=== PATIENT | male | born 1950 | race Caucasian/White ===

== ENCOUNTER 2021-04-26 16:07 | Inpatient (IN) | payer MEDICARE, OTHER, SELFPAY ==
[2021-04-26] VITALS (11 sets, daily range): BP systolic 106–141; BP diastolic 65–107; PULSE 81–110; RESP 12–26; TEMP 36.3–37; O2SAT 92–100; BMI 17.3; BMI 17.4
--- NOTE | 2021-04-26 16:23 | EKG12_ITS ---
Test Reason : SOB Blood Pressure : / mmHG Vent. Rate : 091 BPM Atrial Rate : 091 BPM P-R Int : 124 ms QRS Dur : 082 ms QT Int : 348 ms P-R-T Axes : 081 080 074 degrees QTc Int : 428 ms Normal sinus rhythm Normal ECG Confirmed by ESTELITA RENTERIA, DAYA ([id number]), supervising editor news reel RUBEN BENZ ([id number]) on 04/28/2021 10:01:32 AM Referred By: OXANA Confirmed By:DAYA CAPONE MD
--- NOTE | 2021-04-26 16:25 | EDS_ITS ---
HPI History of Present Illness Chief Complaint: Shortness of Breath Narrative Narrative: 71-year-old male past medical history of COPD presents with increasing shortness of breath and dyspnea on exertion that he has had for the last 3 to 4 days. 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 He had a fever as high as 102 this morning with increasing shortness of breath. He has been immunized against Covid. He quit smoking a year and a half ago, and was last hospitalized for breathing difficulty 2 years ago. He denies any leg swelling. No other symptoms. He usually wears oxygen at home, 5 to 6 L at all times. While he states he recently had a chest x-ray, he states he is here merely for antibiotics. [facility] Medical History (Updated 04/26/21 @ 21:39 by Jamin Stanton MD) AAA (abdominal aortic aneurysm) Basal cell carcinoma (BCC) Chronic bronchitis with COPD (chronic obstructive pulmonary disease) Chronic hypoxemic respiratory failure Chronic lower back pain Diverticulitis Hyperlipidemia Hypertension Inguinal hernia Lumbago Home Medications Oxygen, Home [Home Oxygen] 2 - 3 lpm NASAL PRN PRN 05/03/14 [History Last Taken 05/03/14] albuterol sulfate [ProAir HFA] 1 - 2 puff INHALATION Q4H PRN PRN 05/03/14 [History Last Taken 05/03/14] atorvastatin 20 mg PO QHS 05/03/14 [History Last Taken 04/05/16] diclofenac sodium 75 mg PO BID 05/03/14 [History Last Taken 04/05/16] gabapentin 600 mg PO 4X/DAY 05/03/14 [History Last Taken 04/05/16] ipratropium-albuterol [Combivent Respimat] 1 puff INHALATION Q6H 05/03/14 [Hi story Last Taken 04/05/16] oxycodone-acetaminophen 1 tab PO BID PRN PRN 05/03/14 [History Last Taken 04/05/16] tramadol 50 mg PO Q6H PRN PRN 05/03/14 [History Last Taken Unknown] zolpidem 5 mg PO QHS PRN PRN 05/03/14 [History Last Taken 04/05/16] umeclidinium-vilanterol [Anoro Ellipta] 1 puff INHALATION DAILY 04/06/16 [History Last Taken 04/05/16] levofloxacin 750 mg PO DAILY #5 tablet 04/10/16 [Rx Last Taken Unknown] prednisone 10 mg PO UD #32 tab 04/10/16 [Rx Last Taken Unknown] azithromycin [Zithromax Z-Mushtaq] See Rx Instructions PO .COMPLEX #6 tab 04/26/21 [Rx Last Taken Unknown] prednisone 40 mg PO DAILY #14 tab 04/26/21 [Rx Last Taken Unknown] Allergy/AdvReac Type Severity Reaction Status Date / Time venom-honey bee Allergy Vomiting Verified 04/26/21 16:13 [bee venom (honey bee)] Family History (Updated 04/26/21 @ 21:[address] Jayme Macario MD) Other Heart disease Surgical History History of spinal fusion S/P herniorrhaphy Social History Smoking Status: Former smoker ROS ROS ED ROS Narrative Constitutional: Positive fever, no chills. HEENT: No sore throat. No neck pain. No loss of vision. No rhinorrhea. Cardiovascular: No chest pain. No palpitations. No pedal edema. Respiratory: Occasional cough, increasing shortness of breath. Abdominal: No abdominal pain. No nausea. No vomiting. Genitourinary: No dysuria. No hematuria. Musculoskeletal: No myalgias. No arthralgias. Neurologic: No headaches. No dizziness. No lightheadedness. Skin: No rash. No change in color. Psychiatric: No depression. No anxiety. EXAM Physical Exam Narrative Exam Narrative: Afebrile. Vital signs noted. HEENT: Normocephalic. Atraumatic. PERRL, EOMI. Neck soft and supple. No point tenderness or step off. Cardiovascular: Regular rate and rhythm. No murmurs, rubs, or gallops appreciated. Respiratory: Minimal tachypnea. Decreased breath sounds bilateral bases. Occasional rhonchi with expiratory wheezing. Gastrointestinal: Abdomen soft, nontender, with normoactive bowel sounds. No rebound or guarding. Neurological: Awake. Alert. Nonfocal, nonlateralizing. Skin: No rash. Normal color. No pallor. Musculoskeletal: No pedal edema. Full range of motion extremities. Const Vital Signs: 04/26/21 16:13 04/26/21 16:16 04/26/21 16:47 Temperature 97.9 F 97.9 F Temperature Source Temporal Temporal Pulse Rate 110 H 110 H 98 Respiratory Rate 19 H 19 H 19 H Respiratory Effort Short of Breath Labored Short of Breath Respiratory Depth Shallow Respiratory Pattern Tachypnea Blood Pressure 141/78 H 141/78 H Blood Pressure Mean 99 99 Pulse Ox 95 95 92 Oxygen Delivery Method Nasal Cannula Nasal Cannula Nasal Cannula Oxygen Flow Rate (L/min) 6 6 6 04/26/21 17:11 04/26/21 18:04 04/26/21 19:00 Temperature 98.1 F Temperature Source Temporal Pulse Rate 110 H 81 92 Respiratory Rate 22 H 20 H 12 Respiratory Effort Respiratory Depth Respiratory Pattern Blood Pressure 106/65 128/70 H 131/86 H Blood Pressure Mean 78 89 101 Pulse Ox 95 97 Oxygen Delivery Method Nasal Cannula Nasal Cannula Oxygen Flow Rate (L/min) 6 6 04/26/21 21:26 Temperature 98.6 F Temperature Source Temporal Pulse Rate 104 H Respiratory Rate 25 H Respiratory Effort Respiratory Depth Respiratory Pattern Blood Pressure 118/105 H Blood Pressure Mean 109 Pulse Ox 96 Oxygen Delivery Method Nasal Cannula Oxygen Flow Rate (L/min) 6 MDM MDM MDM Narrative Medical decision making narrative: Comprehensive work-up was pursued. He was given on ipratropium/albuterol nebulizer treatment and Solu-Medrol 125 mg intravenously. He has normal white count of 6.2, hemoglobin stable at 12.3. Troponin negative at 12. Basic metabolic panel is grossly unremarkable. Chest x-ray shows COPD but no acute cardio pulmonary process. At this point in time, I feel he be discharged safely home. His Covid and influenza swabs are negative. He is afebrile currently. I will write him a prescription for an azithromycin Z-Mushtaq given his increased dyspnea, and for steroid burst for the next 7 days. He will follow up with his sulfuric acid plant operator. Return instructions were reviewed. Disposition is discharged home in stable condition. However, there was told by the RN that when the patient was exerting himself prior to discharge, he became hypoxic on his 5 to 7 L that he wears at home. He was in the 80s of his pulse ox. He states that he had never desaturated that low on his home oxygen, and was hesitant to go home. I then discussed the patient with Dr. Macario for admission. Lab Data Attestation: I reviewed the patient's lab results. Labs: Laboratory Results - last 24 hr 04/26/21 04/26/21 16:32 16:32 WBC 6.2 RBC 4.41 L Hgb 12.3 L Hct 39.3 L MCV 89.1 MCH 27.9 MCHC 31.3 L RDW Std Deviation 44.2 H RDW Coeff of Mac 13.5 Plt Count 179 MPV 9.9 Immature Gran % (Auto) 0.200 Neut % (Auto) 80.0 H Lymph % (Auto) 13.1 L Cotton % (Auto) 5.4 Eos % (Auto) 0.8 Baso % (Auto) 0.5 Absolute Neuts (auto) 4.9 Absolute Lymphs (auto) 0.81 L Nucleated RBC % 0 Sodium 138 Potassium 4.0 Chloride 103 Carbon Dioxide 32.0 Anion Gap 3 L BUN 25 H Creatinine 0.78 Estim Creat Clear Calc 53.17 Est GFR (MDRD) Af Amer 125 Est GFR (MDRD) Non-Af 103 BUN/Creatinine Ratio 31.8 H Glucose 104 Calcium 9.0 Troponin I High Sens 12 Radiography Diagnostic Testing: Clinical Impression(s) from Imaging Studies Chest X-Ray 04/26/21 17:10 IMPRESSION: COPD. No acute cardiopulmonary pathology. Electronically Signed: Jose Barajas MD at 18:21 EST , Service support , Discharge Plan Dx/Rx/DC Orders Clinical Impression: COPD exacerbation, Hypoxia Disposition Disposition: Acute Care Hospital [facility] Discharge Date/Time: 04/26/21 20:19
[2021-04-26] MEDS: Ipratropium/Albuterol Sulfate 3 ML AMPUL.NEB INHALATION ×2 (16:45→23:56)
[2021-04-26 16:46] LABS: Absolute Lymphocyte Count 0.81 X10^3/uL (0.83-4.51); Absolute Neutrophil Count 4.9 X10^3/uL (2.0-7.7); Basophil# 0.03 X10^3/uL; Basophil% 0.5 % (0-1); Eosinophil# 0.05 X10^3/uL; Eosinophils% 0.8 % (0-5); Hematocrit 39.3 % (40-54); Hemoglobin 12.3 g/dL (13.0-16.5); Lymphocyte # 0.81 X10^3/ul (0.83-4.51); Lymphocyte % 13.1 % (19-41); Mean Corp Hgb Conc 31.3 g/dL (32-36); Mean Corpuscular Hgb 27.9 pg (27.0-32.0); Mean Corpuscular Volume 89.1 fL (80-94); Mean Platelet Vol. 9.9 fl (6.2-12.0); Monocyte# 0.33 X10^3/uL; Monocyte% 5.4 % (0-10); NRBC Flagged by Analyzer 0 % (0-5); Neutrophil # 4.93 X10^3/uL (2.7-7.7); Platelet Count 179 K/mm3 (150-450); RBC Distribution Width CV 13.5 % (11.6-14.6); RBC Distribution Width SD 44.2 fl (35.1-43.9); Red Blood Count 4.41 M/mm3 (4.6-6.2); White Blood Count 6.2 K/mm3 (4.4-11.0)
[2021-04-26 17:10] LABS: Anion Gap 3 (5-15); BUN 25 mg/dL (7-18); BUN/Creat Ratio 31.8 RATIO (10-20); Chloride 103 mmol/L (98-107); Creatinine, Serum 0.78 mg/dL (0.70-1.30); EST Glomerular Filtration Rate 103 mL/min (>60); Est Glom Filt Rate - Afr Amer 125 mL/min (>60); Estimated Creatinine Clearance 53.17 ml/min; Glucose 104 mg/dL (74-106); Sodium Level 138 mmol/L (136-145); Troponin-I HS 12 pg/mL (3.0-78.0)
--- NOTE | 2021-04-26 17:10 | RAD_ITS ---
STUDY: X-RAY CHEST REASON FOR EXAM: Male, 71 years old. Shortness of breath TECHNIQUE: AP portable COMPARISON: None. FINDINGS: Lungs are hyperinflated and there is prominence of the interstitial markings. Tiny calcified granuloma in right upper lobe.. There is blunting of costophrenic angles bilaterally likely representing pleural thickening. Tiny effusions not excluded. There is calcific pleural plaquing of the right base Normal size heart. Normal mediastinum and betty. Normal visualized pulmonary arteries. Mildly calcified aortic arch and descending thoracic aorta. Dorsal spine demonstrates degenerative change. Normal visualized ribs, clavicles, and right clavicle. Postsurgical changes of the left There is no demonstrated abnormality of the visualized soft tissue structures of the upper abdomen. RAD/Chest 1 View (Portable) IMPRESSION: COPD. No acute cardiopulmonary pathology. Electronically Signed: Jose Barajas MD at 18:21 EST , Service support ,
[2021-04-26] MEDS: MethylPREDNISolone 125 MG/2 ML Vial IV (17:30)
--- NOTE | 2021-04-26 20:37 | ED.RN ---
pt was assisted to restroom while on O2 condenser. O2 decreased to 86% while on [address] was informed and patient placed back onto the board. sandhya grady rn [id number]
--- NOTE | 2021-04-26 21:15 | PCM.HP.STD ---
HPI - General General Date of Admission: 04/26/21 HPI Narrative DAVID HERNANDEZ, is a 71 M with a significant history of COPD on home oxygen who presents to the emergency department with a 3-day history of progressive worsening shortness of breath. Patient reported that at home he is on for 5 to 7 L nasal cannula oxygen. Associated for symptom is increased wheezing more than his baseline. Further he has a lynne thick sputum which is worse than his baseline. He reports a home temperature of over 102 Fahrenheit on the day of presentation. Reportedly he went to the urgent care because he was too hypoxic he was sent to the emergency department. Reportedly attempt was made to discharge the patient home. However patient reportedly desaturating into the low 80s and reported that he has never had low oxygen saturation like that before. [facility] Medical History (Updated 04/26/21 @ 23:22 by Jimmie Del Rio) AAA (abdominal aortic aneurysm) Anxiety Basal cell carcinoma (BCC) Chronic bronchitis with COPD (chronic obstructive pulmonary disease) Chronic hypoxemic respiratory failure Chronic lower back pain Depression Diverticulitis Former smoker Hyperlipidemia Hypertension Inguinal hernia Lumbago On home oxygen therapy Sleep apnea Home Medications albuterol sulfate [ProAir HFA] 1 - 2 puff INHALATION Q4H PRN PRN 05/03/14 [History Last Taken 05/03/14] atorvastatin 20 mg PO QHS 05/03/14 [History Last Taken 04/05/16] oxycodone-acetaminophen 1 tab PO BID PRN PRN 05/03/14 [History Last Taken 04/05/16] zolpidem 5 mg PO QHS PRN PRN 05/03/14 [History Last Taken 04/05/16] aspirin 81 mg PO DAILY 04/26/21 [History Last Taken Unknown] budesonide 0.5 mg INHALATION Q12H 04/26/21 [History Last Taken Unknown] citalopram 10 mg PO DAILY 04/26/21 [History Last Taken Unknown] diclofenac sodium [Voltaren] 2 g TOPICAL 4X/DAY 04/26/21 [History Last Taken Unknown] duloxetine 40 mg PO DAILY 04/26/21 [History Last Taken Unknown] fluconazole 100 mg PO DAILY 04/26/21 [History Last Taken Unknown] gabapentin 1,200 mg PO BID 04/26/21 [History Last Taken Unknown] guaifenesin 1,200 mg PO BID 04/26/21 [History Last Taken Unknown] ipratropium bromide [Atrovent] 2 spray INTRANASAL TID 04/26/21 [History Last Taken Unknown] ipratropium-albuterol [Combivent Respimat] 1 puff INHALATION 4X/DAY 04/26/21 [History Last Taken Unknown] prednisone 10 mg PO DAILY 04/26/21 [History Last Taken Unknown] tamsulosin 0.4 mg PO QHS 04/26/21 [History Last Taken Unknown] zolpidem 5 - 10 mg PO QHS 04/26/21 [History Last Taken Unknown] Allergy/AdvReac Type Severity Reaction Status Date / Time venom-honey bee Allergy Vomiting Verified 04/26/21 16:13 [bee venom (honey bee)] Family History Other Heart disease Surgical History History of spinal fusion S/P herniorrhaphy Social History Smoking Status: Former smoker ROS ROS Narrative Constitutional: Reports fever. Denies anorexia and change in weight Eyes: Denies blurry vision, change in eye color, change in vision, discharge from eye(s), double vision, erythema, eye pain, loss of vision or other HEENT: Denies abnormal hearing, dysphagia, ear pain, epistaxis, headache(s), hearing loss, nasal congestion, nasal discharge, post nasal drip, sinus pressure, sore throat or other Cardiovascular: Denies chest pain or palpitations. Respiratory/Chest: Reports shortness of breath, wheezes, productive cough. Gastrointestinal: Reports nausea and vomiting. Denies abdominal pain, coffee ground emesis, constipation, diarrhea, dyspepsia, hematemesis, hematochezia, loose stools, melena or other Genitourinary: Denies burning urination, difficulty urinating, dysuria, hematuria, nocturia, urinary frequency, urinary hesitancy, urinary incontinence, urinary urgency or other Musculoskeletal: Denies arthralgias, back pain, joint pain, joint stiffness, joint swelling, myalgias, neck pain or other Neurologic: Denies abnormal gait, abnormal speech, confusion, disequilibrium, dizziness, focal weakness, headache(s), numbness, paresthesias, seizure-like activity, seizures, syncope, tingling, tremor(s) or other Psychiatric: Denies anxiety, depression, homicidal ideation, suicidal ideation or other Endocrinology: Denies change in body appearance, cold intolerance, excessive sweating, heat intolerance, polydipsia, polyuria or other Hematologic/Lymphatic: Denies anemia, easy bleeding, easy bruising, lymphadenopathy or other Integumentary: Denies rashes Allergic/Immunologic: Denies rhinitis, hives, eczema, asthma or other Vital Signs Vital Signs Vital Signs: 04/26/21 16:13 04/26/21 16:16 04/26/21 16:47 Temperature 97.9 F 97.9 F Temperature Source Temporal Temporal Pulse Rate 110 H 110 H 98 Respiratory Rate 19 H 19 H 19 H Respiratory Effort Short of Breath Labored Short of Breath Respiratory Depth Shallow Respiratory Pattern Tachypnea Blood Pressure 141/78 H 141/78 H Blood Pressure Mean 99 99 Pulse Ox 95 95 92 Oxygen Delivery Method Nasal Cannula Nasal Cannula Nasal Cannula Oxygen Flow Rate (L/min) 6 6 6 04/26/21 17:11 04/26/21 18:04 04/26/21 19:00 Temperature 98.1 F Temperature Source Temporal Pulse Rate 110 H 81 92 Respiratory Rate 22 H 20 H 12 Respiratory Effort Respiratory Depth Respiratory Pattern Blood Pressure 106/65 128/70 H 131/86 H Blood Pressure Mean 78 89 101 Pulse Ox 95 97 Oxygen Delivery Method Nasal Cannula Nasal Cannula Oxygen Flow Rate (L/min) 6 6 Weight Weight: 56.3 kg Body Mass Index (BMI) 17.3 Physical Exam Narrative Physical exam: General: Patient sitting in a wheel chair; and with oxygen in nares. Head: Normocephalic, atraumatic, no tenderness Eyes: PERRLA, EOMI ENT, no trauma, moist mucous membranes, no rhinorrhea Neck: Nontender, full range of motion, no spinal tenderness, deformities, step-off CVS: Regular rate and rhythm. S1-S2 present. No murmur, gallop or rub. Respiratory : Use accessory muscles of respiration; tachypnea. Wheezes and rhonchi. Chest wall nontender. Abdomen: Soft, nontender, nondistended, normal bowel sounds, no masses : Deferred Back: Nontender, no CVA tenderness, no midline spinal tenderness, deformities, step-offs Extremities: Cachectic. Nontender full range of motion, no trauma Skin: Normal color, no trauma, abrasions Neuro: Alert, oriented, cranial nerves II through XII grossly intact; except patient is hard of hearing. Psychiatry: Anxious. Not depressed. Results Lab / Micro Data Result Diagrams: 04/26/21 16:32 04/26/21 16:32 Labs: Laboratory Results - last 24 hr 04/26/21 16:32: WBC 6.2, RBC 4.41 L, Hgb 12.3 L, Hct 39.3 L, MCV 89.1, MCH 27.9, MCHC 31.3 L, RDW Std Deviation 44.2 H, RDW Coeff of Mac 13.5, Plt Count 179, MPV 9.9, Immature Gran % (Auto) 0.200, Neut % (Auto) 80.0 H, Lymph % (Auto) 13.1 L, Mcdonough % (Auto) 5.4, Eos % (Auto) 0.8, Baso % (Auto) 0.5, Absolute Neuts (auto) 4.9, Absolute Lymphs (auto) 0.81 L, Nucleated RBC % 0 04/26/21 16:32: Sodium 138, Potassium 4.0, Chloride 103, Carbon Dioxide 32.0, Anion Gap 3 L, BUN 25 H, Creatinine 0.78, Estim Creat Clear Calc 53.17, Est GFR (MDRD) Af Amer 125, Est GFR (MDRD) Non-Af 103, BUN/Creatinine Ratio 31.8 H, Glucose 104, Calcium 9.0, Troponin I High Sens 12 Micro: Microbiology 04/26/21 16:32 Nasal Secretion SARS-CoV-2 Antigen (Rapid) - Final 04/26/21 16:24 Mucosa - Nose Influenza Types A,B Direct FA (JALYN) - Final Radiology Impression Chest X-Ray 04/26/21 17:10 IMPRESSION: COPD. No acute cardiopulmonary pathology. Electronically Signed: Jose Barajas MD at 18:21 EST , Service support , Assessment & Plan Assessment/Plan (1) COPD (chronic obstructive pulmonary disease): QUALIFIERS: COPD type: COPD with acute exacerbation Qualified Code(s): J44.1 - Chronic obstructive pulmonary disease with (acute) exacerbation PLAN: Acute exacerbation of COPD CXR independently showed hyperinflation with no acute cardiopulmonary process. I agree with radiologist interpretation. Scheduled DuoNeb ordered Albuterol as needed Hold home prednisone. Solu-Medrol received at the emergent department and continued. Because of reported fever; increased wheezes; and increased weakness in sputum we will start patient on antibiotics. Levaquin ordered. Continue supplemental oxygen. Titrate to maintain oxygen saturation to at least 90%. CBC reviewed showed normal white counts but with neutrophilia of 80% and with lymphopenia of 13.1%. BMP was unremarkable. Monitor BMP and CBC Protein calorie malnutrition Cachexia. BMI of 17.4. Nutrition consult. Ensure compact ordered. Depression/anxiety Citalopram and duloxetine continue DVT Prophylaxis: Subcutaneous Lovenox ordered Charges/Coding Visit Charges Inpatient E&M: 98958 Init Hosp L3
[2021-04-27] VITALS (14 sets, daily range): BP systolic 136–158; BP diastolic 82–102; PULSE 79–95; RESP 18–24; TEMP 36.6–36.9; O2SAT 94–98
[2021-04-27] MEDS: 0.9% Saline Lock 10 ML Syringe IV ×3 (00:12→13:56)
[2021-04-27] MEDS: levoFLOXacin 500 MG Tablet PO ×2 (00:12→05:36)
[2021-04-27] MEDS: Acetaminophen 325 MG Tablet 650 MG PO ×4 (00:23→23:32)
[2021-04-27] MEDS: oxyCODONE 5 MG Tablet PO ×2 (00:23→07:55)
--- NOTE | 2021-04-27 01:30 | PCS.PANDOC ---
PANDEMIC DOCUMENTATION INITIATED: Date:04/27 Time 2100
[2021-04-27] MEDS: Albuterol 2.5 MG/3 ML VIAL.NEB. INHALATION (02:41)
[2021-04-27] MEDS: Ipratropium Bromide 0.06% NASAL SPRAY 2 SPRAY NASAL ×3 (05:36→20:00)
[2021-04-27] MEDS: Ipratropium/Albuterol Sulfate 3 ML AMPUL.NEB INHALATION ×5 (06:50→23:09)
[2021-04-27] MEDS: Citalopram 10 MG Tablet PO (07:54)
[2021-04-27] MEDS: Aspirin E.C. 81 MG Tablet PO (07:54)
[2021-04-27] MEDS: Gabapentin 600 MG Tablet 1200 MG PO ×2 (07:54→20:01)
[2021-04-27] MEDS: DULoxetine Hcl 20 MG Capsule 40 MG PO (07:55)
[2021-04-27] MEDS: Enoxaparin 40 MG/0.4 ML Syringe SC (07:56)
--- NOTE | 2021-04-27 08:20 | PN.HOSP_ITS ---
Subjective Subjective Patient is a 72-year-old gentleman admitted with progressive shortness of breath and assessment of COPD with acute exacerbation made admitted to regular nursing floor for further management Objective Data Objective Data Vital Signs: Vital Signs Temp Pulse Resp BP Pulse Ox 97.9 F 81 24 H 141/102 H 94 04/27/21 07:45 04/27/21 07:45 04/27/21 07:45 04/27/21 07:45 04/27/21 07:45 Oxygen Flow Rate (L/min) 5 Oxygen Delivery Method Nasal Cannula Weight: 56.3 kg Body Mass Index (BMI) 17.4 Intake & Output: Intake and Output for Last 24 Hours 04/25/21 04/26/21 04/27/21 23:59 23:59 23:59 Intake Total 400 / 400 Balance 400 / 400 Lab / Micro Data Result Diagrams: 04/27/21 07:35 04/27/21 07:35 Labs: Laboratory Results - last 24 hr 04/26/21 16:32: WBC 6.2, RBC 4.41 L, Hgb 12.3 L, Hct 39.3 L, MCV 89.1, MCH 27.9, MCHC 31.3 L, RDW Std Deviation 44.2 H, RDW Coeff of Mac 13.5, Plt Count 179, MPV 9.9, Immature Gran % (Auto) 0.200, Neut % (Auto) 80.0 H, Lymph % (Auto) 13.1 L, Schuyler % (Auto) 5.4, Eos % (Auto) 0.8, Baso % (Auto) 0.5, Absolute Neuts (auto) 4.9, Absolute Lymphs (auto) 0.81 L, Nucleated RBC % 0 04/26/21 16:32: Sodium 138, Potassium 4.0, Chloride 103, Carbon Dioxide 32.0, Anion Gap 3 L, BUN 25 H, Creatinine 0.78, Estim Creat Clear Calc 53.17, Est GFR (MDRD) Af Amer 125, Est GFR (MDRD) Non-Af 103, BUN/Creatinine Ratio 31.8 H, Glucose 104, Calcium 9.0, Troponin I High Sens 12 Micro: Microbiology 04/26/21 16:32 Nasal Secretion SARS-CoV-2 Antigen (Rapid) - Final 04/26/21 16:24 Mucosa - Nose Influenza Types A,B Direct FA (JALYN) - Final Radiography Diagnostic Testing: Radiology Impression Chest X-Ray 04/26/21 17:10 IMPRESSION: COPD. No acute cardiopulmonary pathology. Electronically Signed: Jose Barajas MD at 18:21 EST , Service support , Physical Exam Narrative GENERAL: cooperative HEENT: Atraumatic; EYES; Anicteric, Normal Conjunctiva NECK; supple, normal thyroid, RESPIRATORY: Diminished to auscultation with bilateral wheezes CARDIOVASCULAR: Regular S1 S2, GI: soft, normoactive bowel sounds, : No Renal angle tenderness; EXTREMITIES: No edema, no clubbing, MUSCULOSKELETAL: no muscle waisting NEURO: Awake; no lateralizing signs. SKIN: No Rash PSYCH; Flat affect Assessment & Plan Assessment/Plan (1) COPD (chronic obstructive pulmonary disease): QUALIFIERS: COPD type: COPD with acute exacerbation Qualified Code(s): J44.1 - Chronic obstructive pulmonary disease with (acute) exacerbation PLAN: Patient is a 72-year-old gentleman admitted with progressive shortness of breath and assessment of COPD with acute exacerbation made admitted to regular nursing floor for further management 1. COPD with acute exacerbation ?Admitted to regular nursing floor managed with systemic steroid antibiotics as well as supplemental oxygen. Patient progress being monitored with his oxygen requirements. He remains significantly dyspneic with significant bronchospasm as of this a.m. 2. Severe protein calorie malnutrition ?As evidenced by low BMI of 17.4 and suboptimal oral intake. This is as a result of patient chronic lung disease COPD. Consult has been placed to dietitian 3. Chronic pain syndrome ?We will continue patient home regimen 4. Depression with anxiety ?Patient is on citalopram as well as duloxetine did continue 5. Dyslipidemia -Patient is on statin therapy, continued at home dose 6. BPH ?Patient is on tamsulosin did continue 7. DVT prophylaxis ?Lovenox Charges/Coding Visit Charges Inpatient E&M: 36577 Subs Hosp L3
[2021-04-27 08:26] LABS: Absolute Lymphocyte Count 0.43 X10^3/uL (0.83-4.51); Absolute Neutrophil Count 4.9 X10^3/uL (2.0-7.7); Basophil# 0.01 X10^3/uL; Basophil% 0.2 % (0-1); Hematocrit 40.4 % (40-54); Hemoglobin 12.3 g/dL (13.0-16.5); Lymphocyte # 0.43 X10^3/ul (0.83-4.51); Lymphocyte % 7.7 % (19-41); Mean Corp Hgb Conc 30.4 g/dL (32-36); Mean Corpuscular Hgb 26.7 pg (27.0-32.0); Mean Corpuscular Volume 87.8 fL (80-94); Mean Platelet Vol. 10.3 fl (6.2-12.0); Monocyte# 0.22 X10^3/uL; Monocyte% 3.9 % (0-10); NRBC Flagged by Analyzer 0 % (0-5); Neutrophil % 87.8 % (47-70); POSITIVE DIFFERENTIAL YES; Platelet Count 191 K/mm3 (150-450); RBC Distribution Width CV 13.6 % (11.6-14.6); RBC Distribution Width SD 43.6 fl (35.1-43.9); White Blood Count 5.6 K/mm3 (4.4-11.0)
[2021-04-27 08:30] LABS: Differential Indicated SCAN CRITERIA MET
--- NOTE | 2021-04-27 08:35 | NURSING ---
continuous pulse ox applied to see at nurses station
[2021-04-27 08:55] LABS: Anion Gap 5 (5-15); BUN 24 mg/dL (7-18); Chloride 99 mmol/L (98-107); Creatinine, Serum 0.68 mg/dL (0.70-1.30); EST Glomerular Filtration Rate 121 mL/min (>60); Est Glom Filt Rate - Afr Amer 146 mL/min (>60); Estimated Creatinine Clearance 53.17 ml/min; Glucose 111 mg/dL (74-106); Potassium 4.2 mmol/L (3.5-5.1); Sodium Level 138 mmol/L (136-145)
[2021-04-27 09:07] LABS: Platelet Estimate ADEQUATE (ADEQ); Red Cell Morphology NORM C+C NORMAL (NORM C&C)
[2021-04-27] MEDS: Senna/Docusate Sodium 1 Tablet 2 TABLET PO (11:15)
[2021-04-27] MEDS: oxyCODONE 5 MG Tablet 10 MG PO ×3 (11:15→20:01)
--- NOTE | 2021-04-27 13:00 | CASEMGMT ---
RN CM OIL PROSPECTING OBSERVER CM to room to meet with patient for initial transition planning/care coordination assessment. RN CM introduced self and role at [facility] [place]. Pt voices understanding and consents to assessment at this time. Pt resting in bed in no distress at this time. COCOPAH. SonBa, @ bedside. Pt is A/O at this time and answers all questions appropriately. Care providers, pharmacy, and demographics verified/updated at this time. PCP: Dr Damon Specialists: Dr Melissa Pt qualifies for Palliative care d/t COPD and chronic O2 use. Discussed Palliative care w/pt and son. Pt is not interested in referral at this time, stating he wishes to do research on it 1st before deciding. Preferred Pharmacy: [facility] [place] Retail Insurance: [employer], [employer] Prescription Benefit: Yes Living Will/HPOA: Has both. , Mariama, is POA LNOK: , Mariama. SonBa Living Arrangements: Lives w/ in 2-story home w/2 steps to enter. Pt uses both floor and takes stairs slowly. Indep w/ADL's. /pt share home mgmt tasks. Transportation: Pt states drives self and states no transportation concerns at this time. also drives. DME: States has the following DME: pulse ox, nebulizer, cane. O2 @ 5-6 l/m through [employer]. Has concentrator and portability. Pt states no need for further DME at this time. HHC/SNF: No hx SNF. Has had HHC in the past. Declines needing HHC @ d/c. Pt wishes to return home and states has no concerns with going home at time of discharge. CM to follow for any increase in home oxygen needs and any further discharge planning/needs. Pt voices no further concerns/needs at this time. Advised pt to ask for CM if any further questions/concerns/needs arise. Voices understanding. PLAN: Home w/family support and discharge plans in place. Marla LARA RN, CM
--- NOTE | 2021-04-27 13:08 | CASEMGMT ---
TC to [facility] to verify pt O2 order. Office is closed, will try back tomorrow.
[2021-04-27] MEDS: ALPRAZolam 0.25 MG Tablet PO (13:56)
[2021-04-27] MEDS: guaiFENesin 600 MG Tablet PO (13:56)
[2021-04-27] MEDS: Tamsulosin HCl 0.4 MG Capsule PO (20:00)
[2021-04-27] MEDS: Atorvastatin Calcium 20 MG Tablet PO (20:01)
[2021-04-27] MEDS: Zolpidem Tartrate 5 MG Tablet PO (23:33)
[2021-04-28] VITALS (13 sets, daily range): BP systolic 134–162; BP diastolic 73–102; PULSE 74–108; RESP 18–26; TEMP 35.6–37.2; O2SAT 90–98
[2021-04-28] MEDS: Zolpidem Tartrate 5 MG Tablet PO ×2 (00:06→22:58)
[2021-04-28] MEDS: 0.9% Saline Lock 10 ML Syringe IV ×5 (00:06→22:15)
[2021-04-28] MEDS: Sodium Chloride 0.65% 1 SPRAY SPRAY.BTL 2 SPRAY NASAL ×2 (00:06→22:06)
[2021-04-28] MEDS: oxyCODONE 5 MG Tablet 10 MG PO ×6 (00:06→22:58)
--- NOTE | 2021-04-28 04:29 | NURSING ---
Phone call placed to pulmonary services for an aerosol treatment.
[2021-04-28] MEDS: Ipratropium Bromide 0.06% NASAL SPRAY 2 SPRAY NASAL ×3 (05:23→22:07)
[2021-04-28] MEDS: levoFLOXacin 500 MG Tablet PO (05:24)
[2021-04-28 05:41] LABS: Absolute Lymphocyte Count 0.55 X10^3/uL (0.83-4.51); Absolute Neutrophil Count 6.4 X10^3/uL (2.0-7.7); Basophil# 0.01 X10^3/uL; Basophil% 0.1 % (0-1); Hematocrit 38.6 % (40-54); Hemoglobin 11.9 g/dL (13.0-16.5); Lymphocyte # 0.55 X10^3/ul (0.83-4.51); Lymphocyte % 7.4 % (19-41); Mean Corp Hgb Conc 30.8 g/dL (32-36); Mean Corpuscular Hgb 27.2 pg (27.0-32.0); Mean Corpuscular Volume 88.1 fL (80-94); Mean Platelet Vol. 9.9 fl (6.2-12.0); Monocyte# 0.45 X10^3/uL; NRBC Flagged by Analyzer 0 % (0-5); Neutrophil # 6.42 X10^3/uL (2.7-7.7); POSITIVE DIFFERENTIAL YES; Platelet Count 198 K/mm3 (150-450); RBC Distribution Width CV 13.2 % (11.6-14.6); RBC Distribution Width SD 43.2 fl (35.1-43.9); Red Blood Count 4.38 M/mm3 (4.6-6.2); White Blood Count 7.5 K/mm3 (4.4-11.0)
[2021-04-28 05:43] LABS: Differential Indicated SCAN CRITERIA MET
[2021-04-28 06:05] LABS: Anion Gap 3 (5-15); BUN 23 mg/dL (7-18); Calcium,Total 8.8 mg/dL (8.5-10.1); Chloride 99 mmol/L (98-107); EST Glomerular Filtration Rate 118 mL/min (>60); Est Glom Filt Rate - Afr Amer 143 mL/min (>60); Estimated Creatinine Clearance 53.17 ml/min; Glucose 144 mg/dL (74-106); Magnesium 2.1 mg/dL (1.6-2.6); Potassium 4.3 mmol/L (3.5-5.1); Sodium Level 138 mmol/L (136-145)
--- NOTE | 2021-04-28 07:42 | PN.HOSP_ITS ---
Subjective Subjective Patient seen in significant respiratory distress. Adjusted patient's therapy requesting for Airvo and nonrebreather. Was also given 60 mg of IV Lasix x1. Objective Data Objective Data Vital Signs: Vital Signs Temp Pulse Resp BP Pulse Ox 97.6 F L 74 20 H 150/85 H 95 04/28/21 05:32 04/28/21 05:32 04/28/21 05:32 04/28/21 05:32 04/28/21 05:32 Oxygen Flow Rate (L/min) 5 Oxygen Delivery Method Nasal Cannula Weight: 56.3 kg Body Mass Index (BMI) 17.4 Intake & Output: Intake and Output for Last 24 Hours 04/26/21 04/27/21 04/28/21 23:59 23:59 23:59 Intake Total 640 / 640 360 / 360 Balance 640 / 640 360 / 360 Medical Nutrition Assessment Dietitian: Malnutrition Criteria Met Start: 04/27/21 12:10 Freq: Status: Active Protocol: Document 04/27/21 12:10 RMA (Rec: 04/27/21 12:11 RMA [id number]) Nutrition Malnutrition Evidence of Malnutrition Exists Yes Malnutrition (severe): Acute Illness/Injury,Chronic Evidenced By Suboptimal Energy Intake ( Severe),Weight Loss (Severe), Physical Changes (Severe) Clinical Problem Chronic Disease or Condition Related Malnutrition Etiology Severe protein-calorie malnutrition in the context of acute on chronic illness related to inadequate oral intake and increased energy needs Signs/Symptoms as evidenced by ~8% wt loss, BMI 17.4, declining appetite/ intake at meals meeting less than 50% estimated nutrition needs and obvious physical signs of muscle and fat wasting in the face, orbitals, temporal region, clavicle, arms and legs Status Active Problem Recommendation Dietitian Recommendations/Changes Will continue liberalized regular diet as ordered. Will add ensure compact w/ breakfast and chocolate ensure enlive milkshake BID with lunch and dinner if consumed supplements will provide approximately an extra 1200 calories and 55 gm protein per day. Lab / Micro Data Result Diagrams: 04/28/21 05:20 04/28/21 05:20 Labs: Laboratory Results - last 24 hr 04/27/21 07:35: WBC 5.6, RBC 4.60, Hgb 12.3 L, Hct 40.4, MCV 87.8, MCH 26.7 L, MCHC 30.4 L, RDW Std Deviation 43.6, RDW Coeff of Mac 13.6, Plt Count 191, MPV 10.3, Immature Gran % (Auto) 0.400, Neut % (Auto) 87.8 H, Lymph % (Auto) 7.7 L, [place] % (Auto) 3.9, Eos % (Auto) 0.0, Baso % (Auto) 0.2, Absolute Neuts (auto) 4.9, Absolute Lymphs (auto) 0.43 L, Nucleated RBC % 0, Differential Comment , Platelet Estimate ADEQUATE, RBC Morphology NORM C+C 04/27/21 07:35: Sodium 138, Potassium 4.2, Chloride 99, Carbon Dioxide 34.0 H, Anion Gap 5, BUN 24 H, Creatinine 0.68 L, Estim Creat Clear Calc 53.17, Est GFR (MDRD) Af Amer 146, Est GFR (MDRD) Non-Af 121, BUN/Creatinine Ratio 35.0 H, Glucose 111 H, Calcium 9.0 04/28/21 05:20: WBC 7.5, RBC 4.38 L, Hgb 11.9 L, Hct 38.6 L, MCV 88.1, MCH 27.2, MCHC 30.8 L, RDW Std Deviation 43.2, RDW Coeff of Mac 13.2, Plt Count 198, MPV 9.9, Immature Gran % (Auto) 0.500, Neut % (Auto) 86.0 H, Lymph % (Auto) 7.4 L, [place] % (Auto) 6.0, Eos % (Auto) 0.0, Baso % (Auto) 0.1, Absolute Neuts (auto) 6.4, Absolute Lymphs (auto) 0.55 L, Nucleated RBC % 0 04/28/21 05:20: Sodium 138, Potassium 4.3, Chloride 99, Carbon Dioxide 36.0 H, Anion Gap 3 L, BUN 23 H, Creatinine 0.70, Estim Creat Clear Calc 53.17, Est GFR (MDRD) Af Amer 143, Est GFR (MDRD) Non-Af 118, BUN/Creatinine Ratio 33.0 H, Glucose 144 H, Calcium 8.8, Magnesium 2.1 Micro: Microbiology 04/26/21 16:32 Nasal Secretion SARS-CoV-2 Antigen (Rapid) - Final 12/26/21 16:24 Mucosa - Nose Influenza Types A,B Direct FA (JALYN) - Final Physical Exam Narrative GENERAL: Significantly dyspneic at rest using accessory muscles of respiration HEENT: Atraumatic; EYES; Anicteric, Normal Conjunctiva NECK; supple, normal thyroid, RESPIRATORY: Diminished to auscultation with bilateral wheezes CARDIOVASCULAR: Regular S1 S2, GI: soft, normoactive bowel sounds, : No Renal angle tenderness; EXTREMITIES: No edema, no clubbing, MUSCULOSKELETAL: no muscle waisting NEURO: Awake; no lateralizing signs. SKIN: No Rash PSYCH; Flat affect Assessment & Plan Assessment/Plan (1) COPD (chronic obstructive pulmonary disease): QUALIFIERS: COPD type: COPD with acute exacerbation Qualified Code(s): J44.1 - Chronic obstructive pulmonary disease with (acute) exacerbation PLAN: Patient is a 72-year-old gentleman admitted with progressive shortness of breath and assessment of COPD with acute exacerbation made admitted to regular nursing floor for further management 1. Acute on chronic hypoxic respiratory failure secondary to COPD with acute exacerbation ?Admitted to regular nursing floor managed with systemic steroid antibiotics as well as supplemental oxygen. Patient progress being monitored with his oxygen requirements. He remains significantly dyspneic with significant bronchospasm as of this a.m. -04/28/2021; Patient seen in significant respiratory distress. Adjusted patient 's therapy requesting for Airvo and nonrebreather. Was also given 60 mg of IV Lasix x1 2. Severe protein calorie malnutrition ?As evidenced by low BMI of 17.4 and suboptimal oral intake. This is as a result of patient chronic lung disease COPD. Consult has been placed to dietitian 3. Chronic pain syndrome ?We will continue patient home regimen 4. Depression with anxiety ?Patient is on citalopram as well as duloxetine did continue 5. Dyslipidemia -Patient is on statin therapy, continued at home dose 6. BPH ?Patient is on tamsulosin did continue 7. DVT prophylaxis ?Lovenox Charges/Coding Visit Charges Inpatient E&M: 98747 [facility] [place] Hosp L3
[2021-04-28] MEDS: Furosemide 100 MG/10 ML Vial 60 MG IV (08:36)
[2021-04-28] MEDS: ALPRAZolam 0.25 MG Tablet PO ×2 (08:39→22:14)
[2021-04-28] MEDS: Aspirin E.C. 81 MG Tablet PO (08:39)
[2021-04-28] MEDS: Acetaminophen 325 MG Tablet 650 MG PO (08:39)
[2021-04-28] MEDS: DULoxetine Hcl 20 MG Capsule 40 MG PO (08:39)
[2021-04-28] MEDS: Multivitamins,Therapeutic Tablet 1 TABLET PO (08:39)
[2021-04-28] MEDS: Senna/Docusate Sodium 1 Tablet 2 TABLET PO (08:39)
[2021-04-28] MEDS: Enoxaparin 40 MG/0.4 ML Syringe SC (08:40)
[2021-04-28] MEDS: Citalopram 10 MG Tablet PO (08:40)
[2021-04-28] MEDS: Gabapentin 600 MG Tablet 1200 MG PO ×2 (08:40→22:07)
[2021-04-28] MEDS: guaiFENesin 600 MG Tablet PO (08:43)
[2021-04-28] MEDS: Albuterol 2.5 MG/3 ML VIAL.NEB. INHALATION ×2 (08:47→11:50)
--- NOTE | 2021-04-28 09:07 | CASEMGMT ---
Pt screened with [facility] Palliative Screening Tool, pt met criteria. Order received, hospitalist aware that pt wanted to do research on own. Referral emailed to Palliative.
--- NOTE | 2021-04-28 09:47 | CASEMGMT ---
TC jamin Carrillo, spoke with Kendra to confirm pt O2 orders. She states pt was recently set up with NIV at home with 3L O2 at HS and pt uses 4L during the day. Notified pt nurse Rubi of NIV.
[2021-04-28 11:41] LABS: Allen Test Positive; Base Excess 11 mmol/L (-2 to +2); Bicarbonate 34.8 mmol/L (22-26); Blood Gas Specimen Type ART; O2 Delivery Device Cannula; PO2 146 mmHG (75-100); SITE L Radial; SO2 99 % (95-99); Total Carbon Dioxide 36 mmol/L; pCO2 50.4 mmHg (35-45); pH 7.45 (7.35-7.45)
[2021-04-28] MEDS: Ipratropium/Albuterol Sulfate 3 ML AMPUL.NEB INHALATION ×2 (15:05→19:21)
[2021-04-28] MEDS: Atorvastatin Calcium 20 MG Tablet PO (22:07)
[2021-04-28] MEDS: Tamsulosin HCl 0.4 MG Capsule PO (22:07)
[2021-04-29] VITALS (13 sets, daily range): BP systolic 129–155; BP diastolic 75–87; PULSE 86–115; RESP 18–26; TEMP 36.6–36.7; O2SAT 91–98
[2021-04-29] MEDS: NYSTATIN 500,000 UNIT/5 ML UDC 500000 UNIT PO ×4 (02:39→20:52)
[2021-04-29] MEDS: oxyCODONE 5 MG Tablet 10 MG PO ×6 (02:52→23:26)
[2021-04-29] MEDS: Ipratropium/Albuterol Sulfate 3 ML AMPUL.NEB INHALATION ×6 (02:52→23:16)
[2021-04-29] MEDS: Acetaminophen 325 MG Tablet 650 MG PO (05:04)
[2021-04-29] MEDS: levoFLOXacin 500 MG Tablet PO (06:44)
[2021-04-29] MEDS: Ipratropium Bromide 0.06% NASAL SPRAY 2 SPRAY NASAL ×3 (06:44→20:47)
[2021-04-29] MEDS: 0.9% Saline Lock 10 ML Syringe IV (06:45)
[2021-04-29 07:01] LABS: Absolute Lymphocyte Count 0.47 X10^3/uL (0.83-4.51); Absolute Neutrophil Count 8.2 X10^3/uL (2.0-7.7); Basophil# 0.01 X10^3/uL; Basophil% 0.1 % (0-1); Hemoglobin 12.1 g/dL (13.0-16.5); Lymphocyte # 0.47 X10^3/ul (0.83-4.51); Lymphocyte % 5.1 % (19-41); Mean Corpuscular Volume 87.1 fL (80-94); Mean Platelet Vol. 10.3 fl (6.2-12.0); Monocyte# 0.44 X10^3/uL; Monocyte% 4.8 % (0-10); NRBC Flagged by Analyzer 0 % (0-5); Neutrophil # 8.21 X10^3/uL (2.7-7.7); Neutrophil % 89.7 % (47-70); POSITIVE DIFFERENTIAL YES; Platelet Count 233 K/mm3 (150-450); RBC Distribution Width CV 13.2 % (11.6-14.6); RBC Distribution Width SD 42.2 fl (35.1-43.9); Red Blood Count 4.48 M/mm3 (4.6-6.2); White Blood Count 9.2 K/mm3 (4.4-11.0)
[2021-04-29 07:07] LABS: Differential Indicated SCAN CRITERIA MET
[2021-04-29 07:40] LABS: Anion Gap 7 (5-15); BUN 25 mg/dL (7-18); BUN/Creat Ratio 31.9 RATIO (10-20); Calcium,Total 9.1 mg/dL (8.5-10.1); Chloride 93 mmol/L (98-107); Creatinine, Serum 0.78 mg/dL (0.70-1.30); EST Glomerular Filtration Rate 104 mL/min (>60); Est Glom Filt Rate - Afr Amer 125 mL/min (>60); Estimated Creatinine Clearance 53.17 ml/min; Glucose 140 mg/dL (74-106); Potassium 4.4 mmol/L (3.5-5.1); Sodium Level 135 mmol/L (136-145)
[2021-04-29] MEDS: Aspirin E.C. 81 MG Tablet PO (08:18)
[2021-04-29] MEDS: Gabapentin 600 MG Tablet 1200 MG PO ×2 (08:18→20:49)
[2021-04-29] MEDS: Citalopram 10 MG Tablet PO (08:18)
[2021-04-29] MEDS: Enoxaparin 40 MG/0.4 ML Syringe SC (08:18)
[2021-04-29] MEDS: DULoxetine Hcl 20 MG Capsule 40 MG PO (08:18)
[2021-04-29] MEDS: Multivitamins,Therapeutic Tablet 1 TABLET PO (08:18)
--- NOTE | 2021-04-29 09:02 | PN.HOSP_ITS ---
Subjective Subjective Patient is still short of breath, heart rate in the 90s to 100s. Tachypneic with respiratory rate 20 to 26/min. Pulse ox 96% on 4 L of oxygen. Objective Data Objective Data Vital Signs: Vital Signs Temp Pulse Resp BP Pulse Ox 98 F 115 H 20 H 129/75 H 93 04/29/21 08:16 04/29/21 08:16 04/29/21 08:16 04/29/21 08:16 04/29/21 08:16 Oxygen Flow Rate (L/min) 5 Oxygen Delivery Method Nasal Cannula Weight: 124 lb 1.924 oz Body Mass Index (BMI) 17.4 Intake & Output: Intake and Output for Last 24 Hours 04/27/21 04/28/21 04/29/21 23:59 23:59 23:59 Intake Total 640 / 640 850 / 850 400 / 400 Balance 640 / 640 850 / 850 400 / 400 Medical Nutrition Assessment Dietitian: Malnutrition Criteria Met Start: 04/27/21 12 :10 Freq: Status: Active Protocol: Document 04/27/21 12:10 RMA (Rec: 04/27/21 12:11 RMA [id number]) Nutrition Malnutrition Evidence of Malnutrition Exists Yes Malnutrition (severe): Acute Illness/Injury,Chronic Evidenced By Suboptimal Energy Intake ( Severe),Weight Loss (Severe), Physical Changes (Severe) Clinical Problem Chronic Disease or Condition Related Malnutrition Etiology Severe protein-calorie malnutrition in the context of acute on chronic illness related to inadequate oral intake and increased energy needs Signs/Symptoms as evidenced by ~8% wt loss, BMI 17.4, declining appetite/ intake at meals meeting less than 50% estimated nutrition needs and obvious physical signs of muscle and fat wasting in the face, orbitals, temporal region, clavicle, arms and legs Status Active Problem Recommendation Dietitian Recommendations/Changes Will continue liberalized regular diet as ordered. Will add ensure compact w/ breakfast and chocolate ensure enlive milkshake BID with lunch and dinner if consumed supplements will provide approximately an extra 1200 calories and 55 gm protein per day. Lab / Micro Data Result Diagrams: 04/29/21 05:45 04/29/21 05:45 Labs: Laboratory Results - last 24 hr 04/29/21 05:45: WBC 9.2, RBC 4.48 L, Hgb 12.1 L, Hct 39.0 L, MCV 87.1, MCH 27.0, MCHC 31.0 L, RDW Std Deviation 42.2, RDW Coeff of Mac 13.2, Plt Count 233, MPV 10.3, Immature Gran % (Auto) 0.300, Neut % (Auto) 89.7 H, Lymph % (Auto) 5.1 L, [place] % (Auto) 4.8, Eos % (Auto) 0.0, Baso % (Auto) 0.1, Absolute Neuts (auto) 8.2 H, Absolute Lymphs (auto) 0.47 L, Nucleated RBC % 0 04/29/21 05:45: Sodium 135 L, Potassium 4.4, Chloride 93 L, Carbon Dioxide 35.0 H, Anion Gap 7, BUN 25 H, Creatinine 0.78, Estim Creat Clear Calc 53.17, Est GFR (MDRD) Af Amer 125, Est GFR (MDRD) Non-Af 104, BUN/Creatinine Ratio 31.9 H, Glucose 140 H, Calcium 9.1 Micro: Microbiology 04/26/21 16:32 Nasal Secretion SARS-CoV-2 Antigen (Rapid) - Final 04/26/21 16:24 Mucosa - Nose Influenza Types A,B Direct FA (JALYN) - Final ABG Data ABG results: ABG 04/28/21 11:37 Specimen Type ART Sample Site L Radial pH 7.45 Bicarbonate Actual 34.8 H Total CO2 36 Base Excess 11 H O2 Saturation 99 ABG pCO2 50.4 H ABG pO2 146 H Claudio Test Positive O2 Delivery Device Cannula Liter Flow 6.0 Physical Exam Narrative General: Alert, Oriented x3, Cooperative, thin body build, BMI 17.4 kg/m? HEENT: Atraumatic, PERRLA, EOMI, Normocephalic Oral: No Gingival or Mucosal Lesions/ Ulcerations Neck: Supple, No JVD, Negative Carotid Bruits Lungs: Air entry severely diminished. Bilateral rhonchi and wheezing present. Tachypneic and hypoxic. Labored breathing. Cardiovascular: Mild sinus tachycardia, Normal S1, Normal S2, No murmurs Abdomen: Bowel Sounds Present, Soft, Non Tender, Non-Distended : No renal angle tenderness. No suprapubic tenderness. Extremities: No edema, Capillary Refill Less than 3 Seconds Skin: No rashes, No breakdown Musculoskeletal: No Tenderness to Palpation of Joints or Extremities. Subcutaneous loss of fat and mild muscle atrophy of extremities. Neurological: Cranial nerves II-XII grossly intact, DTR 2+/4 and Symmetrical, Neuro grossly intact Psych/Mental Status: Flat affect. Assessment & Plan Assessment/Plan (1) COPD (chronic obstructive pulmonary disease): QUALIFIERS: COPD type: COPD with acute exacerbation Qualified Code(s): J44.1 - Chronic obstructive pulmonary disease with (acute) exacerbation PLAN: Patient is a 72-year-old gentleman admitted with progressive shortness of breath and assessment of COPD with acute exacerbation made admitted to regular nursing floor for further management 1. Acute on chronic hypoxic respiratory failure secondary to COPD with acute exacerbation ?Admitted to regular nursing floor managed with systemic steroid antibiotics as well as supplemental oxygen. Patient had antibiotic since admission. 04/29/2021: Patient in significant respiratory distress with hypoxia tachypnea and labored breathing. Patient seen in significant respiratory distress. Adjusted patient's therapy requesting for Airvo and nonrebreather. Patient had Lasix 60 mg IV on 04/28. Chest x-ray on 04/26 shows no acute cardiopulmonary pathology. No fever or acute infiltrate noticed on chest x-ray therefore antibiotic Levaquin discontinued. Palliative care consult. 2. Severe protein calorie malnutrition ?As evidenced by low BMI of 17.4 and suboptimal oral intake. This is as a result of patient chronic lung disease COPD. 3. Chronic pain syndrome ? continue patient home regimen 4. Depression with anxiety ?Patient is on citalopram as well as duloxetine did continue 5. Dyslipidemia -Patient is on statin therapy, continued at home dose 6. BPH ?Patient is on tamsulosin did continue 7. DVT prophylaxis ?Lovenox 40 mg subcu daily Charges/Coding Visit Charges Inpatient E&M: 23585 Subs Hosp L3
--- NOTE | 2021-04-29 14:35 | PCM.CONS.P ---
HPI Consult Data Date of Consult: 04/29/21 HPI Narrative HPI Narrative: DAVID HERNANDEZ, is a 71 M who presents [facility] Medical History (Updated 04/26/21 @ 23:22 by Jimmie Del Rio) AAA (abdominal aortic aneurysm) Anxiety Basal cell carcinoma (BCC) Chronic bronchitis with COPD (chronic obstructive pulmonary disease) Chronic hypoxemic respiratory failure Chronic lower back pain Depression Diverticulitis Former smoker Hyperlipidemia Hypertension Inguinal hernia Lumbago On home oxygen therapy Sleep apnea Home Medications albuterol sulfate [ProAir HFA] 1 - 2 puff INHALATION Q4H PRN PRN 05/03/14 [History Last Taken 05/03/14] atorvastatin 40 mg PO QHS 05/03/14 [History Last Taken 04/05/16] oxycodone-acetaminophen 1 tab PO BID 05/03/14 [History Last Taken 04/05/16] zolpidem 5 mg PO QHS PRN PRN 05/03/14 [History Last Taken 04/05/16] aspirin 81 mg PO DAILY 04/26/21 [History Last Taken Unknown] budesonide 0.5 mg INHALATION Q12H 04/26/21 [History Last Taken Unknown] citalopram 10 mg PO DAILY 04/26/21 [History Last Taken Unknown] diclofenac sodium [Voltaren] 2 g TOPICAL 4X/DAY 04/26/21 [History Last Taken Unknown] duloxetine 40 mg PO DAILY 04/26/21 [History Last Taken Unknown] fluconazole 100 mg PO DAILY 04/26/21 [History Last Taken Unknown] gabapentin 1,200 mg PO BID 04/26/21 [History Last Taken Unknown] guaifenesin 600 mg PO BID PRN 04/26/21 [History Last Taken Unknown] ipratropium bromide [Atrovent] 2 spray INTRANASAL TID 04/26/21 [History Last Taken Unknown] ipratropium-albuterol [Combivent Respimat] 1 puff INHALATION 4X/DAY 04/26/21 [History Last Taken Unknown] prednisone 10 mg PO DAILY 04/26/21 [History Last Taken Unknown] tamsulosin 0.4 mg PO QHS 04/26/21 [History Last Taken Unknown] zolpidem 5 - 10 mg PO QHS 04/26/21 [History Last Taken Unknown] multivitamin 1 tab PO DAILY 04/27/21 [History Last Taken Unknown] oxycodone-acetaminophen [Percocet] 1 tab PO BID PRN PRN 04/27/21 [History Last Taken Unknown] Allergy/AdvReac Type Severity Reaction Status Date / Time venom-honey bee Allergy Vomiting Verified 04/26/21 16:13 [bee venom (honey bee)] Family History Other Heart disease Surgical History History of spinal fusion S/P herniorrhaphy Social History Smoking Status: Former smoker
--- NOTE | 2021-04-29 14:44 | CON.PCM.PA_ITS ---
Assessment & Plan Assessment/Plan (1) Shortness of breath: (2) Acute exacerbation of chronic obstructive pulmonary disease (COPD): (3) Chronic hypoxemic respiratory failure: (4) Skin cancer: (5) Malaise and fatigue: (6) Hypoxia: PLAN: 71-year-old male with what appears to be fairly advanced COPD and chronic hypoxemic respiratory failure, recently placed on NIV but only used it one night and did not tolerate well, seen today for palliative consultation for symptom management of shortness of breath. 1. Shortness of breath: Is in an acute exacerbation of COPD. He has poor activity tolerance at home, still tries to do chores but has to rest frequently. He would be an excellent candidate for Roxanol to assist with his breathing and air hunger. We would need to do an opioid risk tool measurement on him and discuss plan of care further in detail if he decides to enroll in palliative care. He does take Percocet for chronic pain 1 tab twice daily. He also has Xanax 0.25 mg twice daily as needed. 2. Chronic hypoxemic respiratory failure/COPD exacerbation: He is on baseline 5 L during the day at home, depending upon what he is doing he can go up to 7 L especially with doing chores. Feeling better with IV steroids and antibiotics. He is wanting to go home in the next day or so. His son is supposed to get May 02 in [place], they were supposed to leave yesterday to attend but unable to go now so he is upset about that. 3. History of skin cancer/AAA repair: Complicates overall care, management, recovery, and prognosis. Patient denies any cardiac issues. 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 Melissa. Thank you for the opportunity to participate in this patient's care, please do not hesitate to contact [facility] palliative with any further questions or concerns. Palliative direct line is [phone]. We will follow up after discharge and will discuss palliative services further at that time with patient, , and son. States if they decide to enroll, would want visits to be not in patient's home as his is ill and immunocompromised. Greater than 50% of F2F visit dedicated to education and counseling of palliative care services, medications, comorbid conditions and potential assistance with management, and plan of care moving forward. Start time: 1440 End time: 1532 HPI Consult Data Date of Consult: 04/29/21 HPI Narrative HPI Narrative: DAVID HERNANDEZ, is a 71 M who presented to [facility] 04/26/2021 with increasing shortness of breath and dyspnea on exertion. Also had increased sputum production. Originally presented to urgent care, however was significantly hypoxic so sent to the ED. Does have a metal wire coating operator and is on baseline steroid therapy of 10 mg daily. Presented with fever of 102. Patient is vaccinated against Covid. Has a history of COPD, last hospitalized in 2016 with exacerbation. Patient was admitted to [facility] and started on antibiotics and Solu-Medrol. He did not have a white count. Patient recently set up with noninvasive ventilation at home with 3 L of O2 at at bedtime and 4 L during daytime through [facility]. He lives at home with his in a two-story home. He is able to go up stairs but has to move slowly. Typically independent with ADLs and drives himself. JO-ANN CROSS is his , Mariama. He uses [facility] retail pharmacy for prescriptions. Patient has a DNR CCA with no intubation. Patient denies any current nausea or vomiting, no diarrhea or constipation. His chest does get tight and painful at times. Reports Tuesday he could barely breathe and drove himself to the urgent care, then had to drive to the ED. He is short of breath with any exertion. There is some mild conversational dyspnea. No significant current sputum production. He does have a cough but that is better. He feels weak but able to get around himself. We discussed palliative services at length and answered any questions that he had. He does want to speak with his as they do not want any visitors in their home due to her having lymphoma. I did offer patient to come to the office for his visits, again he will talk with family. The liaison will reach out to him in a couple of days to see if he has any further questions. ON LICENSE OF [facility] Medical History (Updated 04/29/21 @ 14:56 by Sarai Higuera NP-C) AAA (abdominal aortic aneurysm) Anxiety Basal cell carcinoma (BCC) Chronic bronchitis with COPD (chronic obstructive pulmonary disease) Chronic hypoxemic respiratory failure Chronic lower back pain Depression Diverticulitis Former smoker Hyperlipidemia Hypertension Inguinal hernia Lumbago On home oxygen therapy Sleep apnea Home Medications albuterol sulfate [ProAir HFA] 1 - 2 puff INHALATION Q4H PRN PRN 05/03/14 [History Last Taken 05/03/14] atorvastatin 40 mg PO QHS 05/03/14 [History Last Taken 04/05/16] oxycodone-acetaminophen 1 tab PO BID 05/03/14 [History Last Taken 04/05/16] zolpidem 5 mg PO QHS PRN PRN 05/03/14 [History Last Taken 04/05/16] aspirin 81 mg PO DAILY 04/26/21 [History Last Taken Unknown] budesonide 0.5 mg INHALATION Q12H 04/26/21 [History Last Taken Unknown] citalopram 10 mg PO DAILY 04/26/21 [History Last Taken Unknown] diclofenac sodium [Voltaren] 2 g TOPICAL 4X/DAY 04/26/21 [History Last Taken Unknown] duloxetine 40 mg PO DAILY 04/26/21 [History Last Taken Unknown] fluconazole 100 mg PO DAILY 04/26/21 [History Last Taken Unknown] gabapentin 1,200 mg PO BID 04/26/21 [History Last Taken Unknown] guaifenesin 600 mg PO BID PRN 04/26/21 [History Last Taken Unknown] ipratropium bromide [Atrovent] 2 spray INTRANASAL TID 04/26/21 [History Last Taken Unknown] ipratropium-albuterol [Combivent Respimat] 1 puff INHALATION 4X/DAY 04/26/21 [History Last Taken Unknown] prednisone 10 mg PO DAILY 04/26/21 [History Last Taken Unknown] tamsulosin 0.4 mg PO QHS 04/26/21 [History Last Taken Unknown] zolpidem 5 - 10 mg PO QHS 04/26/21 [History Last Taken Unknown] multivitamin 1 tab PO DAILY 04/27/21 [History Last Taken Unknown] oxycodone-acetaminophen [Percocet] 1 tab PO BID PRN PRN 04/27/21 [History Last Taken Unknown] Allergy/AdvReac Type Severity Reaction Status Date / Time venom-honey bee Allergy Vomiting Verified 04/26/21 16:13 [bee venom (honey bee)] Family History Other Heart disease Surgical History History of spinal fusion S/P herniorrhaphy Social History Smoking Status: Former smoker ROS ROS Narrative Review of systems otherwise negative from a constitutional, HEENT, respiratory, cardiovascular, GI, genitourinary, musculoskeletal, skin, neurologic, psychiatric and hematologic system unless stated above. Physical Exam Const alert and oriented x3 General Appearance: in distress Positive for mild and respiratory and appears older than stated age Nutritional Appearance: cachectic HEENT normocephalic and head/scalp atraumatic Neck supple General: trachea midline Chest Chest: abnormal inspection of the chest barrel chest Resp Effort and Inspection: symmetric chest movement, uses accessory muscles and prolonged expiratory phase; Negative for actively coughing Auscultation: wheezes expiratory wheezes and throughout and diminished lung sounds diffuse Cardio regular rhythm, S1 normal heart sound and S2 normal heart sound Rate: tachycardic GI normal to inspection, nondistended, normoactive bowel sounds Extremity General Extremity: clubbing; Negative for cyanosis or edema Skin no rashes or lesions noted Neuro moves all extremities and no focal motor deficits Psych mental status grossly normal Attitude: calm and engaged Activity / Motor Behavior: appropriate eye contact
[2021-04-29] MEDS: ALPRAZolam 0.25 MG Tablet PO (14:53)
--- NOTE | 2021-04-29 14:59 | CASEMGMT ---
RN CM in to pt room to confirm that pt is agreeable to palliative care seeing him. Pt states that he cannot hear well. He is agreeable to consult and prefers a clear mask so he can read lips. Notified Sarai of the above.
[2021-04-29] MEDS: Tamsulosin HCl 0.4 MG Capsule PO (20:49)
[2021-04-29] MEDS: Atorvastatin Calcium 20 MG Tablet PO (20:50)
[2021-04-29] MEDS: Zolpidem Tartrate 5 MG Tablet PO (23:26)
[2021-04-30] VITALS (12 sets, daily range): BP systolic 138–177; BP diastolic 71–100; PULSE 80–107; RESP 12–22; TEMP 36.2–36.6; O2SAT 93–97
[2021-04-30] MEDS: Ipratropium/Albuterol Sulfate 3 ML AMPUL.NEB INHALATION ×6 (03:19→23:14)
[2021-04-30] MEDS: oxyCODONE 5 MG Tablet 10 MG PO ×5 (03:40→21:43)
[2021-04-30] MEDS: Ipratropium Bromide 0.06% NASAL SPRAY 2 SPRAY NASAL ×3 (05:33→23:11)
[2021-04-30] MEDS: 0.9% Saline Lock 10 ML Syringe IV ×4 (05:35→23:16)
[2021-04-30 05:56] LABS: Absolute Lymphocyte Count 0.45 X10^3/uL (0.83-4.51); Basophil# 0.01 X10^3/uL; Basophil% 0.1 % (0-1); Hematocrit 39.3 % (40-54); Hemoglobin 12.3 g/dL (13.0-16.5); Lymphocyte # 0.45 X10^3/ul (0.83-4.51); Lymphocyte % 5.1 % (19-41); Mean Corp Hgb Conc 31.3 g/dL (32-36); Mean Corpuscular Hgb 27.4 pg (27.0-32.0); Mean Corpuscular Volume 87.5 fL (80-94); Mean Platelet Vol. 10.1 fl (6.2-12.0); Monocyte# 0.39 X10^3/uL; Monocyte% 4.4 % (0-10); NRBC Flagged by Analyzer 0 % (0-5); Neutrophil # 8.01 X10^3/uL (2.7-7.7); Neutrophil % 90.1 % (47-70); POSITIVE DIFFERENTIAL YES; Platelet Count 232 K/mm3 (150-450); RBC Distribution Width CV 13.2 % (11.6-14.6); RBC Distribution Width SD 42.1 fl (35.1-43.9); Red Blood Count 4.49 M/mm3 (4.6-6.2); White Blood Count 8.9 K/mm3 (4.4-11.0)
[2021-04-30 05:59] LABS: Differential Indicated SCAN CRITERIA MET
[2021-04-30 06:55] LABS: Anion Gap 4 (5-15); BUN 25 mg/dL (7-18); BUN/Creat Ratio 32.2 RATIO (10-20); Calcium,Total 9.2 mg/dL (8.5-10.1); Chloride 95 mmol/L (98-107); Creatinine, Serum 0.78 mg/dL (0.70-1.30); EST Glomerular Filtration Rate 105 mL/min (>60); Est Glom Filt Rate - Afr Amer 127 mL/min (>60); Estimated Creatinine Clearance 53.17 ml/min; Glucose 151 mg/dL (74-106); Potassium 4.2 mmol/L (3.5-5.1); Sodium Level 136 mmol/L (136-145)
[2021-04-30] MEDS: Gabapentin 600 MG Tablet 1200 MG PO ×2 (08:18→23:13)
[2021-04-30] MEDS: Aspirin E.C. 81 MG Tablet PO (08:18)
[2021-04-30] MEDS: Citalopram 10 MG Tablet PO (08:18)
[2021-04-30] MEDS: DULoxetine Hcl 20 MG Capsule 40 MG PO (08:18)
[2021-04-30] MEDS: Enoxaparin 40 MG/0.4 ML Syringe SC (08:19)
[2021-04-30] MEDS: Multivitamins,Therapeutic Tablet 1 TABLET PO (08:19)
[2021-04-30] MEDS: NYSTATIN 500,000 UNIT/5 ML UDC 500000 UNIT PO ×4 (08:20→23:13)
[2021-04-30] MEDS: ALPRAZolam 0.25 MG Tablet PO (08:22)
--- NOTE | 2021-04-30 10:15 | PN.HOSP_ITS ---
Subjective Subjective There is no improvement in respiratory status in the last 2 days. I discussed with nca certified concierge and agreed upon CTPA to rule out other conditions like PE. Patient is still dyspneic even at rest on conversation. Objective Data Objective Data Vital Signs: Vital Signs Temp Pulse Resp BP Pulse Ox 97.5 F L 80 16 140/79 H 94 04/30/21 03:33 04/30/21 07:30 04/30/21 07:30 04/30/21 03:33 04/30/21 07:30 Oxygen Flow Rate (L/min) 4 Oxygen Delivery Method Nasal Cannula Weight: 124 lb 1.924 oz Body Mass Index (BMI) 17.4 Intake & Output: Intake and Output for Last 24 Hours 04/28/21 04/29/21 04/30/21 23:59 23:59 23:59 Intake Total 850 / 850 900 / 900 Output Total 900 / 900 Balance 850 / 850 900 / 900 -900 / -900 Medical Nutrition Assessment Dietitian: Malnutrition Criteria Met Start: 04/27/21 12:10 Freq: Status: Active Protocol: Document 04/30/21 09:42 RMA (Rec: 04/30/21 09:43 RMA [id number]) Nutrition Malnutrition Evidence of Malnutrition Exists Yes Malnutrition (severe): Acute Illness/Injury,Chronic Evidenced By Suboptimal Energy Intake ( Severe),Weight Loss (Severe), Physical Changes (Severe) Clinical Problem Chronic Disease or Condition Related Malnutrition Etiology Severe protein-calorie malnutrition in the context of acute on chronic illness related to inadequate oral intake and increased energy needs Signs/Symptoms as evidenced by ~8% wt loss, BMI 17.4, declining appetite/ intake at meals meeting less than 50% estimated nutrition needs and obvious physical signs of muscle and fat wasting in the face, orbitals, temporal region, clavicle, arms and legs Status Active Problem Recommendation Dietitian Recommendations/Changes Will continue diet and ONS as currently ordered: liberalized regular diet; ensure compact w/ breakfast; chocolate ensure enlive milkshake BID with lunch and dinner if consumed supplements will provide approximately an extra 1200 calories and 55 gm protein per day. Lab / Micro Data Result Diagrams: 04/30/21 05:20 04/30/21 05:20 Labs: Laboratory Results - last 24 hr 04/30/21 05:20: WBC 8.9, RBC 4.49 L, Hgb 12.3 L, Hct 39.3 L, MCV 87.5, MCH 27.4, MCHC 31.3 L, RDW Std Deviation 42.1, RDW Coeff of Mac 13.2, Plt Count 232, MPV 10.1, Immature Gran % (Auto) 0.300, Neut % (Auto) 90.1 H, Lymph % (Auto) 5.1 L, [place] % (Auto) 4.4, Eos % (Auto) 0.0, Baso % (Auto) 0.1, Absolute Neuts (auto) 8.0 H, Absolute Lymphs (auto) 0.45 L, Nucleated RBC % 0 04/30/21 05:20: Sodium 136, Potassium 4.2, Chloride 95 L, Carbon Dioxide 37.0 H, Anion Gap 4 L, BUN 25 H, Creatinine 0.78, Estim Creat Clear Calc 53.17, Est GFR (MDRD) Af Amer 127, Est GFR (MDRD) Non-Af 105, BUN/Creatinine Ratio 32.2 H, Glucose 151 H, Calcium 9.2 Micro: Microbiology 04/26/21 16:32 Nasal Secretion SARS-CoV-2 Antigen (Rapid) - Final 04/26/21 16:24 Mucosa - Nose Influenza Types A,B Direct FA (JALYN) - Final Physical Exam Narrative General: Alert, Oriented x3, Cooperative, thin body build, BMI 17.4 kg/m? HEENT: Atraumatic, PERRLA, EOMI, Normocephalic Oral: No Gingival or Mucosal Lesions/ Ulcerations Neck: Supple, No JVD, Negative Carotid Bruits Lungs: Air entry severely diminished. Bilateral expiratory rhonchi. dyspnea at rest. Hypoxic labored breathing. Cardiovascular: Mild sinus tachycardia, Normal S1, Normal S2, No murmurs Abdomen: Bowel Sounds Present, Soft, Non Tender, Non-Distended : No renal angle tenderness. No suprapubic tenderness. Extremities: No edema, Capillary Refill Less than 3 Seconds Skin: No rashes, No breakdown Musculoskeletal: No Tenderness to Palpation of Joints or Extremities. Subcutaneous loss of fat and mild muscle atrophy of extremities. Neurological: Cranial nerves II-XII grossly intact, DTR 2+/4 and Symmetrical, Neuro grossly intact Psych/Mental Status: Flat affect. Assessment & Plan Assessment/Plan (1) COPD (chronic obstructive pulmonary disease): QUALIFIERS: COPD type: COPD with acute exacerbation Qualified C ode(s): J44.1 - Chronic obstructive pulmonary disease with (acute) exacerbation PLAN: Patient is a 72-year-old gentleman admitted with progressive shortness of breath and assessment of COPD with acute exacerbation made admitted to regular nursing floor for further management 1. Acute on chronic hypoxic respiratory failure secondary to COPD with acute exacerbation ?Admitted to regular nursing floor managed with systemic steroid antibiotics as well as supplemental oxygen. Patient had antibiotic since admission. 04/29/2021: Patient in significant respiratory distress with hypoxia tachypnea and labored breathing. Patient seen in significant respiratory distress. Adjusted patient's therapy requesting for Airvo and nonrebreather. Patient had Lasix 60 mg IV on 04/28. Chest x-ray on 04/26 shows no acute cardiopulmonary pathology. No fever or acut e infiltrate noticed on chest x-ray therefore antibiotic Levaquin discontinued. Palliative care consult. 04/30: CT angiogram chest done. PE ruled out but CTA chest shows advanced emphysematous blebs, peribronchial thickening, bronchiectatic changes which may be infectious or inflammatory. Continue PEP, incentive spine. I talked to nca certified concierge and updated about clinical condition. Patient was on Levaquin which was discontinued yesterday and is started on IV Zosyn today. Palliative care has already been consulted. In view of multiple comorbidities and advanced lung disease, palliative/hospice care is appropriate. Patient air hunger/dyspnea may be relieved by morphine analog, Roxanol. 2. Severe protein calorie malnutrition ?As evidenced by low BMI of 17.4 and suboptimal oral intake. This is as a result of patient chronic lung disease COPD. 3. Chronic pain syndrome ? continue patient home regimen 4. Depression with anxiety ?Patient is on citalopram as well as duloxetine did continue 5. Dyslipidemia -Patient is on statin therapy, continued at home dose 6. BPH ?Patient is on tamsulosin did continue 7. DVT prophylaxis ?Lovenox 40 mg subcu daily Charges/Coding Visit Charges Inpatient E&M: 53468 Subs Hosp L2
--- NOTE | 2021-04-30 12:45 | CT_ITS ---
STUDY: CTA CHEST REASON FOR EXAM: Male, 71 years old. severe hypoxia, ADVANCED COPD RADIATION DOSAGE (If Supplied By Facility): CTDIvol = ( 5.18 ) mGy, DLP = ( 165.77 ) mGycm TECHNIQUE: The examination was performed with the intravenous administration of IV 100mL Isovue-370. Post-processing of the angiographic images was performed, with multiplanar reformation and 3D reconstruction. Individualized dose optimization techniques were used for this CT. COMPARISON: None. FINDINGS: Normal enhancement of the main pulmonary artery and right and left pulmonary arteries. Normal enhancement of the bilateral peripheral pulmonary arteries. There is no demonstrated pulmonary embolism. There is atherosclerotic calcification of the aortic arch with tortuosity. There is no demonstrated aortic dissection. Normal heart and pericardium. Normal mediastinum. Normal hilar regions. Normal visualized trachea and bronchi. The lungs are hyper expanded, with flattening of the hemidiaphragms. There are central emphysematous blebs in the bilateral lungs. Patchy bronchovascular micronodules and infiltrates involving the posterior right upper lobe and lateral right middle lobe as well as the bilateral lower lobes. Bronchial wall thickening and bronchiectasis identified in multiple pulmonary lobes. Normal pleura. Normal chest wall structures. There are degenerative changes of thoracic spine. Simple cysts of the right kidney. No required imaging follow-up needed given high likelihood of benign nature. CT/CTA Chest W/WO Contrast IMPRESSION: 1. No central or segmental pulmonary embolism. 2. Bronchiectasis with bronchial wall thickening and patchy peribronchial infiltrates suggesting infectious bronchiolitis/pneumonitis. Electronically Signed: Robby Lundberg MD (Brooks) at 13:07 EST , Service support ,
--- NOTE | 2021-04-30 12:51 | CASEMGMT ---
Addendum entered by Lisette Sloan 04/30/21 13:55: TC jamin Carrillo spoke with Dara to verify how to update script for O2 if pt needs greater than current settings of 4L during day without dc'ing the NIV at HS. She is not sure and states there is no one who can answer that question today. Placed green sheet for updated script stating pt has NIV at night. Original Note: RN CM notified that pt had further questions for palliative care. Emailed palliative to see if able to see pt today. Received response that they will not be in house today or tomorrow. Notified pt nurse.
[2021-04-30] MEDS: Tamsulosin HCl 0.4 MG Capsule 0.8 MG PO (13:19)
[2021-04-30] MEDS: Acetaminophen 325 MG Tablet 650 MG PO (13:19)
[2021-04-30] MEDS: Piperacil/Tazobactam 3.375 GM Q8 PREMIX IV (17:22)
[2021-04-30] MEDS: Atorvastatin Calcium 20 MG Tablet PO (23:12)
[2021-04-30] MEDS: guaiFENesin 1,200 MG Tablet 1200 MG PO (23:13)
[2021-05-01] VITALS (10 sets, daily range): BP systolic 144–164; BP diastolic 79–94; PULSE 91–107; RESP 16–24; TEMP 36.3–37; O2SAT 94–97
[2021-05-01] MEDS: Albuterol 2.5 MG/3 ML VIAL.NEB. INHALATION (02:36)
[2021-05-01] MEDS: Ipratropium/Albuterol Sulfate 3 ML AMPUL.NEB INHALATION ×6 (02:36→23:11)
[2021-05-01] MEDS: oxyCODONE 5 MG Tablet 10 MG PO ×5 (03:05→22:17)
[2021-05-01 05:19] LABS: Absolute Lymphocyte Count 0.48 X10^3/uL (0.83-4.51); Absolute Neutrophil Count 9.3 X10^3/uL (2.0-7.7); Basophil# 0.01 X10^3/uL; Basophil% 0.1 % (0-1); Hematocrit 41.2 % (40-54); Hemoglobin 12.4 g/dL (13.0-16.5); Lymphocyte # 0.48 X10^3/ul (0.83-4.51); Lymphocyte % 4.7 % (19-41); Mean Corp Hgb Conc 30.1 g/dL (32-36); Mean Corpuscular Hgb 27.1 pg (27.0-32.0); Monocyte# 0.33 X10^3/uL; Monocyte% 3.3 % (0-10); NRBC Flagged by Analyzer 0 % (0-5); Neutrophil # 9.25 X10^3/uL (2.7-7.7); Neutrophil % 91.4 % (47-70); POSITIVE DIFFERENTIAL YES; Platelet Count 255 K/mm3 (150-450); RBC Distribution Width CV 13.1 % (11.6-14.6); RBC Distribution Width SD 42.9 fl (35.1-43.9); Red Blood Count 4.58 M/mm3 (4.6-6.2); White Blood Count 10.1 K/mm3 (4.4-11.0)
[2021-05-01 05:27] LABS: Differential Indicated SCAN CRITERIA MET
[2021-05-01] MEDS: Ipratropium Bromide 0.06% NASAL SPRAY 2 SPRAY NASAL ×3 (06:07→21:59)
[2021-05-01] MEDS: 0.9% Saline Lock 10 ML Syringe IV (06:08)
[2021-05-01] MEDS: Piperacil/Tazobactam 3.375 GM Q8 PREMIX IV ×3 (06:09→22:16)
[2021-05-01 06:12] LABS: Anion Gap 1 (5-15); BUN 28 mg/dL (7-18); BUN/Creat Ratio 32.6 RATIO (10-20); Calcium,Total 9.7 mg/dL (8.5-10.1); Chloride 98 mmol/L (98-107); Creatinine, Serum 0.86 mg/dL (0.70-1.30); EST Glomerular Filtration Rate 93 mL/min (>60); Est Glom Filt Rate - Afr Amer 113 mL/min (>60); Estimated Creatinine Clearance 61.83 ml/min; Glucose 140 mg/dL (74-106); Potassium 6.2 mmol/L (3.5-5.1); Sodium Level 140 mmol/L (136-145)
[2021-05-01] MEDS: Citalopram 10 MG Tablet PO (08:28)
[2021-05-01] MEDS: DULoxetine Hcl 20 MG Capsule 40 MG PO (08:28)
[2021-05-01] MEDS: Enoxaparin 40 MG/0.4 ML Syringe SC (08:28)
[2021-05-01] MEDS: Multivitamins,Therapeutic Tablet 1 TABLET PO (08:28)
[2021-05-01] MEDS: Aspirin E.C. 81 MG Tablet PO (08:28)
[2021-05-01] MEDS: NYSTATIN 500,000 UNIT/5 ML UDC 500000 UNIT PO ×4 (08:29→21:58)
[2021-05-01] MEDS: Gabapentin 600 MG Tablet 1200 MG PO ×2 (08:29→21:59)
[2021-05-01] MEDS: guaiFENesin 1,200 MG Tablet 1200 MG PO ×2 (08:34→21:58)
--- NOTE | 2021-05-01 10:23 | PCM.PN.HOSP ---
Subjective Subjective I talked to the patient regarding advanced COPD and try to explain the CT findingsOf diffuse emphysematous blebs, bronchiectasis and bronchiolitis. Patient is short of breath at rest.He also had difficulty with urination required self-catheterization for urine retention. Does not want Osuna catheter. Complain of pain in the glans penis, burning pain.BPH. Hyperkalemia noticed most probably hemolysis as reported by lab. Will repeat potassium. Objective Data Objective Data Vital Signs: Vital Signs Temp Pulse Resp BP Pulse Ox 98.4 F 97 20 H 157/92 H 97 05/01/21 08:25 05/01/21 08:25 05/01/21 08:25 05/01/21 08:25 05/01/21 08:25 Oxygen Flow Rate (L/min) 5 Oxygen Delivery Method Nasal Cannula Weight: 124 lb 1.924 oz Body Mass Index (BMI) 17.4 Intake & Output: Intake and Output for Last 24 Hours 04/29/21 04/30/21 05/01/21 23:59 23:59 23:59 Intake Total 900 / 900 50 / 50 Output Total 2650 / 2650 0 / 0 Balance 900 / 900 -2600 / -2600 0 / 0 Medical Nutrition Assessment Dietitian: Malnutrition Criteria Met Start: 04/27/21 12:10 Freq: Status: Active Protocol: Document 04/30/21 09:42 RMA (Rec: 04/30/21 09:43 RMA [id number]) Nutrition Malnutrition Evidence of Malnutrition Exists Yes Malnutrition (severe): Acute Illness/Injury,Chronic Evidenced By Suboptimal Energy Intake ( Severe),Weight Loss (Severe), Physical Changes (Severe) Clinical Problem Chronic Disease or Condition Related Malnutrition Etiology Severe protein-calorie malnutrition in the context of acute on chronic illness related to inadequate oral intake and increased energy needs Signs/Symptoms as evidenced by ~8% wt loss, BMI 17.4, declining appetite/ intake at meals meeting less than 50% estimated nutrition needs and obvious physical signs of muscle and fat wasting in the face, orbitals, temporal region, clavicle, arms and legs Status Active Problem Recommendation Dietitian Recommendations/Changes Will continue diet and ONS as currently ordered: liberalized regular diet; ensure compact w/ breakfast; chocolate ensure enlive milkshake BID with lunch and dinner if consumed supplements will provide approximately an extra 1200 calories and 55 gm protein per day. Lab / Micro Data Result Diagrams: 05/01/21 04:25 05/01/21 04:25 Labs: Laboratory Results - last 24 hr 05/01/21 04:25: WBC 10.1, RBC 4.58 L, Hgb 12.4 L, Hct 41.2, MCV 90.0, MCH 27.1, MCHC 30.1 L, RDW Std Deviation 42.9, RDW Coeff of Mac 13.1, Plt Count 255, MPV 10.0, Immature Gran % (Auto) 0.500, Neut % (Auto) 91.4 H, Lymph % (Auto) 4.7 L, [place] % (Auto) 3.3, Eos % (Auto) 0.0, Baso % (Auto) 0.1, Absolute Neuts (auto) 9.3 H, Absolute Lymphs (auto) 0.48 L, Nucleated RBC % 0 05/01/21 04:25: Sodium 140, Potassium 6.2 H*, Chloride 98, Carbon Dioxide 41.0 H, Anion Gap 1 L, BUN 28 H, Creatinine 0.86, Estim Creat Clear Calc 61.83, Est GFR (MDRD) Af Amer 113, Est GFR (MDRD) Non-Af 93, BUN/Creatinine Ratio 32.6 H, Glucose 140 H, Calcium 9.7 Micro: Microbiology 04/26/21 16:32 Nasal Secretion SARS-CoV-2 Antigen (Rapid) - Final 04/26/21 16:24 Mucosa - Nose Influenza Types A,B Direct FA (AJLYN) - Final Radiography Diagnostic Testing: Radiology Impression Chest CTA 04/30/21 12:45 IMPRESSION: 1. No central or segmental pulmonary embolism. 2. Bronchiectasis with bronchial wall thickening and patchy peribronchial infiltrates suggesting infectious bronchiolitis/pneumonitis. Electronically Signed: Robby Lundberg MD (Brooks) at 13:07 EST , Service support , Physical Exam Narrative General: Alert, Oriented x3, Cooperative, thin body build, BMI 17.4 kg/m? HEENT: Atraumatic, PERRLA, EOMI, Normocephalic Oral: No Gingival or Mucosal Lesions/ Ulcerations Neck: Supple, No JVD, Negative Carotid Bruits Lungs: Air entry severely diminished. Bilateral expiratory rhonchi. dyspnea at rest. labored breathing. Cardiovascular: Mild sinus tachycardia, Normal S1, Normal S2, No murmurs Abdomen: Bowel Sounds Present, Soft, Non Tender, Non-Distended : Urine retention.No renal angle tenderness. No suprapubic tenderness. Digital rectal exam: Prolapsed enlarged.Able to reach top of prostate. No nodules felt. Extremities: No edema, Capillary Refill Less than 3 Seconds Skin: No rashes, No breakdown Musculoskeletal: No Tenderness to Palpation of Joints or Extremities. Subcutaneous loss of fat and mild muscle atrophy of extremities. Neurological: Cranial nerves II-XII grossly intact, DTR 2+/4 and Symmetrical, Neuro grossly intact Psych/Mental Status: Flat affect. Assessment & Plan Assessment/Plan (1) COPD (chronic obstructive pulmonary disease): QUALIFIERS: COPD type: COPD with acute exacerbation Qualified Code(s): J44.1 - Chronic obstructive pulmonary disease with (acute) exacerbation PLAN: Patient is a 72-year-old gentleman admitted with progressive shortness of breath and assessment of COPD with acute exacerbation made admitted to regular nursing floor for further management 1. Acute on chronic hypoxic respiratory failure secondary to COPD with acute exacerbation ?Admitted to regular nursing floor managed with systemic steroid antibiotics as well as supplemental oxygen. Patient had antibiotic since admission. 04/29/2021: Patient in significant respiratory distress with hypoxia tachypnea and labored breathing. Patient seen in significant respiratory distress. Adjusted patient's therapy requesting for Airvo and nonrebreather. Patient had Lasix 60 mg IV on 04/28. Chest x-ray on 04/26 shows no acute cardiopulmonary pathology. No fever or acute infiltrate noticed on chest x-ray therefore antibiotic Levaquin discontinued. Palliative care consult. 04/30: CT angiogram chest done. PE ruled out but CTA chest shows advanced emphysematous blebs, peribronchial thickening, bronchiectatic changes which may be infectious or inflammatory. Continue PEP, incentive spine. I talked to fighting vehicle systems maintainer and updated about clinical condition. Patient was on Levaquin which was discontinued yesterday and is started on IV Zosyn today. Palliative care has already been consulted. In view of multiple comorbidities and advanced lung disease, palliative/hospice care is appropriate. Patient air hunger/dyspnea may be relieved by morphine analog, Roxanol. 05/01: CT findings discussed in detail with the patient.Advised with a poor prognosis based on clinical and radiological findings.Patient also counseled about the insurance coverage of his hospital stay. 2. Severe protein calorie malnutrition ?As evidenced by low BMI of 17.4 and suboptimal oral intake. This is as a result of patient chronic lung disease COPD. 3. Chronic pain syndrome ? continue patient home regimen 4. Depression with anxiety ?Patient is on citalopram as well as duloxetine did continue 5. Dyslipidemia -Patient is on statin therapy, continued at home dose 6.severe BPH With urine retention ?Patient is on tamsulosin did continue Patient had 2 times urine retention and required straight cath.387 mL, About 400 ml. Tamsulosin increase 0.8 mg. Finasteride added.UA with urine culture ordered On Digital rectal exam: Prostate is enlarged but able to reach on the top of prostate. No nodules felt.Need follow-up withNeurology 7. DVT prophylaxis ?Lovenox 40 mg subcu daily Poor prognosis Total time of the visit including total time spent in counseling or coordination of care, (more than 50% of the total time, spent in obtaining medical information from nurses and other ancillary care providers,explaining to the patient about labs,CT imaging and finding, diagnosis and management), Discussion with fighting vehicle systems maintainer, review of labs and imaging And explanation of the poor prognosis is 30 minutes. Charges/Coding Visit Charges Inpatient E&M: 59927 Subs Hosp L3
[2021-05-01] MEDS: Phenazopyridine 95 MG Tablet 190 MG PO ×2 (11:01→22:01)
[2021-05-01] MEDS: Finasteride 5 MG Tablet PO (11:01)
[2021-05-01 11:07] LABS: Potassium 4.4 mmol/L (3.5-5.1)
[2021-05-01 11:23] LABS: Bacteria 0 SEEN /hpf (None Seen); Mucous, Urine 0 SEEN /hpf (<or=2+); Red Blood Cells-Urine 0 SEEN /hpf (0-5); Squamous Epithelial Cells - UA 0 SEEN /hpf (0-5); White Blood Cells 0 SEEN /hpf (0-5)
[2021-05-01 11:33] LABS: Color, Urine Yellow (Yellow); Glucose, Dipstick Normal (Normal); Ketone-Dipstick Negative (Negative); Leukocyte Esterase-Dipstick Negative /ul (Negative); Nitrite-Dipstick Negative (Negative); Occult Blood-Urine Negative /ul (Negative); Protein-Dipstick Negative (Negative); Specific Gravity, Urine 1.005 (1.002-1.030); Urine Bilirubin Dipstick Negative (Negative); Urine Clarity Clear (Clear); Urine Urobilinogen Normal (Normal)
[2021-05-01] MEDS: ALPRAZolam 0.25 MG Tablet PO (14:50)
--- NOTE | 2021-05-01 17:30 | CASEMGMT ---
SOCIAL WORK Referral Source: CM Reason for Consult: Financial questions Met with patient in room. Introduced role and reason for referral. Patient just wanting re-assured insurance is covering stay. Informed if patient has additional questions/concerns can contact patient financial services. Patient thanking this worker for time. Plan: Home with Mary Obrien, SILK HANGER, FACIALIST
[2021-05-01] MEDS: Sodium Chloride 0.65% 1 SPRAY SPRAY.BTL 2 SPRAY NASAL (21:59)
[2021-05-01] MEDS: Atorvastatin Calcium 20 MG Tablet PO (22:00)
[2021-05-01] MEDS: Tamsulosin HCl 0.4 MG Capsule 0.8 MG PO (22:00)
[2021-05-01] MEDS: Zolpidem Tartrate 5 MG Tablet PO (22:01)
--- NOTE | 2021-05-01 23:30 | CPS ---
Patient agrees to having breathing Tx's through the night to help with wheezing
[2021-05-02] VITALS (7 sets, daily range): BP systolic 152–159; BP diastolic 89–95; PULSE 91–109; RESP 16–22; TEMP 36.4–36.9; O2SAT 93–95
[2021-05-02] MEDS: oxyCODONE 5 MG Tablet 10 MG PO ×3 (02:36→10:03)
--- NOTE | 2021-05-02 03:00 | NURSING ---
called resp therapy for breathing tx. pt stated he woke up with pain to back/side and it worried him but it is subsiding- also see MAR for oxy given.
[2021-05-02] MEDS: Ipratropium/Albuterol Sulfate 3 ML AMPUL.NEB INHALATION ×3 (03:24→10:30)
[2021-05-02] MEDS: Sodium Chloride 0.65% 1 SPRAY SPRAY.BTL 2 SPRAY NASAL ×2 (04:59→06:12)
[2021-05-02 05:38] LABS: Absolute Lymphocyte Count 0.68 X10^3/uL (0.83-4.51); Absolute Neutrophil Count 12.8 X10^3/uL (2.0-7.7); Basophil# 0.02 X10^3/uL; Basophil% 0.1 % (0-1); Hematocrit 42.1 % (40-54); Hemoglobin 12.6 g/dL (13.0-16.5); Lymphocyte # 0.68 X10^3/ul (0.83-4.51); Lymphocyte % 4.8 % (19-41); Mean Corp Hgb Conc 29.9 g/dL (32-36); Mean Corpuscular Hgb 26.8 pg (27.0-32.0); Mean Corpuscular Volume 89.4 fL (80-94); Mean Platelet Vol. 9.9 fl (6.2-12.0); Monocyte% 3.5 % (0-10); NRBC Flagged by Analyzer 0 % (0-5); Neutrophil # 12.77 X10^3/uL (2.7-7.7); Neutrophil % 90.5 % (47-70); Platelet Count 306 K/mm3 (150-450); RBC Distribution Width SD 42.7 fl (35.1-43.9); Red Blood Count 4.71 M/mm3 (4.6-6.2); White Blood Count 14.1 K/mm3 (4.4-11.0)
[2021-05-02] MEDS: Albuterol 2.5 MG/3 ML VIAL.NEB. INHALATION (05:42)
[2021-05-02 06:08] LABS: Anion Gap 3 (5-15); BUN 29 mg/dL (7-18); Calcium,Total 9.1 mg/dL (8.5-10.1); Chloride 95 mmol/L (98-107); Creatinine, Serum 0.83 mg/dL (0.70-1.30); EST Glomerular Filtration Rate 97 mL/min (>60); Est Glom Filt Rate - Afr Amer 117 mL/min (>60); Estimated Creatinine Clearance 64.06 ml/min; Glucose 142 mg/dL (74-106); Potassium 4.8 mmol/L (3.5-5.1); Sodium Level 137 mmol/L (136-145)
[2021-05-02] MEDS: Piperacil/Tazobactam 3.375 GM Q8 PREMIX IV (06:12)
[2021-05-02] MEDS: Ipratropium Bromide 0.06% NASAL SPRAY 2 SPRAY NASAL (06:12)
[2021-05-02] MEDS: NYSTATIN 500,000 UNIT/5 ML UDC 500000 UNIT PO (08:51)
[2021-05-02] MEDS: Gabapentin 600 MG Tablet 1200 MG PO (08:52)
[2021-05-02] MEDS: Citalopram 10 MG Tablet PO (08:52)
[2021-05-02] MEDS: Phenazopyridine 95 MG Tablet 190 MG PO (08:52)
[2021-05-02] MEDS: Finasteride 5 MG Tablet PO (08:52)
[2021-05-02] MEDS: DULoxetine Hcl 20 MG Capsule 40 MG PO (08:53)
[2021-05-02] MEDS: Enoxaparin 40 MG/0.4 ML Syringe SC (08:53)
[2021-05-02] MEDS: Aspirin E.C. 81 MG Tablet PO (08:53)
[2021-05-02] MEDS: guaiFENesin 1,200 MG Tablet 1200 MG PO (08:53)
[2021-05-02] MEDS: Multivitamins,Therapeutic Tablet 1 TABLET PO (08:53)
[2021-05-02] MEDS: ALPRAZolam 0.25 MG Tablet PO (08:55)
--- NOTE | 2021-05-02 10:25 | PCM.DC ---
Discharge Instructions Diet Discharge Diet: No restrictions Activity Discharge Activity: Return to Normal Activity and May Not Drive Weight Bearing Status: Weight bearing as tolerated Dressing / Incision Call your doctor if you observe: Fever of 101 or Higher, Coldness, Increased Pain, Numbness or Tingling, Change in Color, Inability to urinate, Inability to have a bowel movement, Shortness of breath, Dizziness, Fainting spells, Swelling in the ankles, Chest pain, Prolonged hiccupping, Increased palpitations (irregular heartbeat), Calf discomfort and Uncontrolled pain Follow Up Care Test Results: Test results from this visit will be discussed in further detail at your follow-up appointment, if applicable. Discharge Plan Admission Admit Date/Time: 04/26/21 21:05 Primary Reason for Your Visit: COPD exacerbation Attending Provider: Blade Walker Primary Care Provider: Joyce Damon Instructions Patient Instructions: ED COPD Flare Additional Instructions / Restrictions: Follow-up Dr Melissa, the taxicab coordinator in 1 week Discharge Orders/Prescriptions Prescriptions: New nystatin 100,000 unit/mL suspension 500,000 unit PO 4X/DAY PRN (Reason: oral yeast) Qty: 60 RF: 0 tamsulosin 0.4 mg Capsule 0.8 mg PO QHS Qty: 60 RF: 0 finasteride 5 mg Tablet 5 mg PO DAILY Qty: 30 RF: 0 Mucus Relief ER 1,200 mg Tablet Extended Release 12hr 1,200 mg PO BID Qty: 14 RF: 0 amoxicillin-pot clavulanate [Augmentin] 875-125 mg tablet 1 tab PO BID Qty: 10 RF: 0 prednisone 20 mg tablet 20 mg PO DAILY Qty: 20 RF: 0 pantoprazole [Protonix] 40 mg tablet,delayed release (DR/EC) 40 mg PO DAILY Qty: 30 RF: 0 Continued atorvastatin 20 MG tablet 40 mg PO QHS RF: 0 oxycodone-acetaminophen 1 TABLET tablet 1 tab PO BID RF: 0 zolpidem 5 MG tablet 5 mg PO QHS PRN PRN (Reason: Sleep) RF: 0 Combivent Respimat 20-100 mcg/actuation mist 1 puff INHALATION 4X/DAY RF: 0 gabapentin 600 mg tablet 1,200 mg PO BID RF: 0 citalopram 10 mg tablet 10 mg PO DAILY RF: 0 aspirin 81 mg tablet,delayed release (DR/EC) 81 mg PO DAILY RF: 0 budesonide 0.5 mg/2 mL suspension for nebulization 0.5 mg inhalation Q12H RF: 0 zolpidem 5 mg tablet 5 - 10 mg PO QHS RF: 0 ipratropium bromide 42 mcg (0.06 %) [place],Non-Aerosol 2 spray INTRANASAL TID RF: 0 diclofenac sodium 1 % Gel 2 g TOPICAL 4X/DAY RF: 0 duloxetine 40 mg capsule,delayed release(DR/EC) 40 mg PO DAILY RF: 0 oxycodone-acetaminophen [Percocet] 5-325 mg Tablet 1 tab PO BID PRN PRN (Reason: Breakthrough Pain) RF: 0 multivitamin Tablet 1 tab PO DAILY RF: 0 Changed albuterol sulfate [ProAir HFA] 1 PUFF inhaler 2 puff inhalation Q4H PRN PRN (Reason: Sob &/Or Wheezing) Qty: 0 RF: 0 Discontinued fluconazole 100 mg tablet 100 mg PO DAILY RF: 0 prednisone 10 mg tablet 10 mg PO DAILY RF: 0 guaifenesin 600 mg Tablet Extended Release 600 mg PO BID PRN (Reason: Congestion) RF: 0 tamsulosin 0.4 mg capsule 0.4 mg PO QHS RF: 0 Referrals / Follow Up: Joyce Damon MD [Primary Care Provider] - Within 1 Week (Advanced COPD, bronchiectasis and bronchiolitis) Disposition Disposition (needs filled in before D/C Order can be placed): Home, Self Care
--- NOTE | 2021-05-02 10:39 | PCM.DC.SUM ---
Providers Date of Admission: 04/26/21 Date of Discharge: 05/02/21 Primary Care Physician: Dr. Joyce Damon MD Reason For Visit: ACUTE COPD EXACERBATION Diagnosis Discharge Diagnosis (1) COPD (chronic obstructive pulmonary disease): Status: Chronic Code(s): J44.9 - Chronic obstructive pulmonary disease, unspecified Qualifiers: COPD type: COPD with acute exacerbation Qualified Code(s): J44.1 - Chronic obstructive pulmonary disease with (acute) exacerbation Medications at Discharge Home Medications atorvastatin 40 mg PO QHS 05/03/14 oxycodone-acetaminophen 1 tab PO BID 05/03/14 zolpidem 5 mg PO QHS PRN PRN 05/03/14 Combivent Respimat 1 puff INHALATION 4X/DAY 04/26/21 aspirin 81 mg PO DAILY 04/26/21 budesonide 0.5 mg INHALATION Q12H 04/26/21 citalopram 10 mg PO DAILY 04/26/21 diclofenac sodium 2 g TOPICAL 4X/DAY 04/26/21 duloxetine 40 mg PO DAILY 04/26/21 gabapentin 1,200 mg PO BID 04/26/21 ipratropium bromide 2 spray INTRANASAL TID 04/26/21 zolpidem 5 - 10 mg PO QHS 04/26/21 multivitamin 1 tab PO DAILY 04/27/21 oxycodone-acetaminophen [Percocet] 1 tab PO BID PRN PRN 04/27/21 albuterol sulfate [ProAir HFA] 2 puff INHALATION Q4H PRN PRN #0 g 05/02/21 amoxicillin-pot clavulanate [Augmentin] 1 tab PO BID #10 tab 05/02/21 finasteride 5 mg PO DAILY #30 tab 05/02/21 guaifenesin [Mucus Relief ER] 1,200 mg PO BID #14 tab 05/02/21 nystatin 500,000 unit PO 4X/DAY PRN #60 ml 05/02/21 pantoprazole [Protonix] 40 mg PO DAILY #30 tab 05/02/21 prednisone 20 mg PO DAILY #20 tab 05/02/21 tamsulosin 0.8 mg PO QHS #60 cap 05/02/21 Hospital Course Summary of Care Provided Hospital Course: Patient is a 72-year-old gentleman admitted with progressive shortness of breath and assessment of COPD with acute exacerbation made admitted to regular nursing floor for further management 1. Acute on chronic hypoxic respiratory failure secondary to COPD with acute exacerbation ?Admitted to regular nursing floor managed with systemic steroid antibiotics as well as supplemental oxygen. Patient had antibiotic since admission.Patient in significant respiratory distress with hypoxia tachypnea and labored breathing managed with air Vo, nonrebreather, intermittent Lasix. Chest x-ray on 04/26 shows no acute cardiopulmonary pathology. CT angiogram chest done. PE ruled out but CTA chest shows advanced emphysematous blebs, peribronchial thickening, bronchiectatic changes which may be infectious or inflammatory. Continue PEP, incentive spine. I talked to clinical support associate and updated about clinical condition. Patient was on Levaquin which was discontinued and he started on Zosyn. Palliative care was consulted. In view of multiple comorbidities and advanced lung disease, palliative/hospice care is appropriate. Patient air hunger/dyspnea may be relieved by morphine analog, Roxanol. CT findings discussed in detail with the patient.Advised with a poor prognosis based on clinical and radiological findings.Patient also counseled about the insurance coverage of his hospital stay. Patient overall clinical course, treatment and CT findings discussed with the clinical support associate Dr. Puentes. Patient is discharged on Augmentin for 5 more days, long tapering dose of prednisone advised to follow with pulmonology Dr Melissa in 1 week. 2. Severe protein calorie malnutrition ?As evidenced by low BMI of 17.4 and suboptimal oral intake. This is as a result of patient chronic lung disease COPD. 3. Chronic pain syndrome ? continue patient home regimen 4. Depression with anxiety ?Patient is on citalopram as well as duloxetine did continue 5. Dyslipidemia -Patient is on statin therapy, continued at home dose 6.severe BPH With urine retention Patient had 2 times urine retention and required straight cath.387 mL, About 400 ml. Tamsulosin was increased to 0.8 mg. Finasteride added.review is negative for WBC, RBC, squamous epithelium, bacteria and LE and nitrite. On Digital rectal exam: Prostate is enlarged but able to reach on the top of prostate. No nodules felt. Patient advised to follow-up with urologist Dr. Beck to further evaluate. 7. DVT prophylaxis ?Lovenox 40 mg subcu daily Patient is poor prognosis, oxygen dependent and likely to be NIPPV dependent. Advised to continue follow-up with palliative/hospice care. Discharge medication reconciliation done. Discharge follow-up instructions completed. Discharge process discussed with the patient and all questions were answered to patient's satisfaction. Total time spent, exact 35 minutes on discharge meds reconciliation, examination, coordination of care with nurses and ancillary staff, review of imaging and blood test and discussion with the patient on follow-up instructions Physical Exam Narrative Seen and examined. Shortness of breath is better. Patient on baseline 4 to 5 L of oxygen. General: Alert, Oriented x3, Cooperative, thin body build, BMI 17.4 kg/m? HEENT: Atraumatic, PERRLA, EOMI, Normocephalic Oral: No Gingival or Mucosal Lesions/ Ulcerations Neck: Supple, No JVD, Negative Carotid Bruits Lungs: Air entry severely diminished. Bilateral expiratory rhonchi. Exertional dyspnea but no dyspnea at rest. Cardiovascular: Sinus rhythm, Normal S1, Normal S2, No murmurs Abdomen: Bowel Sounds Present, Soft, Non Tender, Non-Distended : No urine retention overnight voiding spontaneously.No renal angle tenderness. No suprapubic tenderness. Extremities: No edema, Capillary Refill Less than 3 Seconds Skin: No rashes, No breakdown Musculoskeletal: No Tenderness to Palpation of Joints or Extremities. Subcutaneous loss of fat and mild muscle atrophy of extremities. Neurological: Cranial nerves II-XII grossly intact, DTR 2+/4 and Symmetrical, Neuro grossly intact Psych/Mental Status: Flat affect. Medical Records Data Medical Nutrition Assessment Dietitian: Malnutrition Criteria Met Start: 04/27/21 12:10 Freq: Status: Active Protocol: Document 04/30/21 09:42 RMA (Rec: 04/30/21 09:43 RMA [id number]) Nutrition Malnutrition Evidence of Malnutrition Exists Yes Malnutrition (severe): Acute Illness/Injury,Chronic Evidenced By Suboptimal Energy Intake ( Severe),Weight Loss (Severe), Physical Changes (Severe) Clinical Problem Chronic Disease or Condition Related Malnutrition Etiology Severe protein-calorie malnutrition in the context of acute on chronic illness related to inadequate oral intake and increased energy needs Signs/Symptoms as evidenced by ~8% wt loss, BMI 17.4, declining appetite/ intake at meals meeting less than 50% estimated nutrition needs and obvious physical signs of muscle and fat wasting in the face, orbitals, temporal region, clavicle, arms and legs Status Active Problem Recommendation Dietitian Recommendations/Changes Will continue diet and ONS as currently ordered: liberalized regular diet; ensure compact w/ breakfast; chocolate ensure enlive milkshake BID with lunch and dinner if consumed supplements will provide approximately an extra 1200 calories and 55 gm protein per day. Weight / BMI Weight Weight: 124 lb 1.924 oz Body Mass Index (BMI) 17.4 ABG / Lab / Microbiology Data Result Diagrams: 05/02/21 05:11 05/02/21 05:11 Laboratory: Laboratory Results - last 24 hr 05/01/21 10:49: Potassium 4.4 05/01/21 11:12: Urine Color Yellow, Urine Clarity Clear, Urine pH 7.0, Ur Specific [place] 1.005, Urine Protein Negative, Urine Glucose (UA) Normal, Urine Ketones Negative, Urine Occult Blood Negative, Urine Nitrite Negative, Urine Bilirubin Negative, Urine Urobilinogen Normal, Ur Leukocyte Esterase Negative, Urine RBC 0 SEEN, Urine WBC 0 SEEN, Ur Squamous Epith Cells 0 SEEN, Urine Bacteria 0 SEEN, Urine Mucus 0 SEEN 05/02/21 05:11: WBC 14.1 H, RBC 4.71, Hgb 12.6 L, Hct 42.1, MCV 89.4, MCH 26.8 L, MCHC 29.9 L, RDW Std Deviation 42.7, RDW Coeff of Mac 13.0, Plt Count 306, MPV 9.9, Immature Gran % (Auto) 1.100 H, Neut % (Auto) 90.5 H, Lymph % (Auto) 4.8 L, [place] % (Auto) 3.5, Eos % (Auto) 0.0, Baso % (Auto) 0.1, Absolute Neuts (auto) 12.8 H, Absolute Lymphs (auto) 0.68 L, Nucleated RBC % 0 05/02/21 05:11: Sodium 137, Potassium 4.8, Chloride 95 L, Carbon Dioxide 39.0 H, Anion Gap 3 L, BUN 29 H, Creatinine 0.83, Estim Creat Clear Calc 64.06, Est GFR (MDRD) Af Amer 117, Est GFR (MDRD) Non-Af 97, BUN/Creatinine Ratio 35.0 H, Glucose 142 H, Calcium 9.1 Microbiology: Microbiology 04/26/21 16:32 Nasal Secretion SARS-CoV-2 Antigen (Rapid) - Final 04/26/21 16:24 Mucosa - Nose Influenza Types A,B Direct FA (JALYN) - Final D/C Instructions Discharge Diet: No restrictions Weight Bearing Status: Weight bearing as tolerated Call your doctor if you observe: Fever of 101 or Higher, Coldness, Increased Pain, Numbness or Tingling, Change in Color, Inability to urinate, Inability to have a bowel movement, Shortness of breath, Dizziness, Fainting spells, Swelling in the ankles, Chest pain, Prolonged hiccupping, Increased palpitations (irregular heartbeat), Calf discomfort and Uncontrolled pain Meaningful Use Info Meaningful Use Diagnoses (Choose all that apply): None applicable Discharge Plan Admission Admit Date/Time: 04/26/21 21:05 Primary Reason for Your Visit: COPD exacerbation Attending Provider: Blade Walker Primary Care Provider: Joyce Damon Instructions Patient Instructions: ED COPD Flare Additional Instructions / Restrictions: Follow-up Dr Melissa, the clinical support associate in 1 week Discharge Orders/Prescriptions Prescriptions: New nystatin 100,000 unit/mL suspension 500,000 unit PO 4X/DAY PRN (Reason: oral yeast) Qty: 60 RF: 0 tamsulosin 0.4 mg Capsule 0.8 mg PO QHS Qty: 60 RF: 0 finasteride 5 mg Tablet 5 mg PO DAILY Qty: 30 RF: 0 Mucus Relief ER 1,200 mg Tablet Extended Release 12hr 1,200 mg PO BID Qty: 14 RF: 0 amoxicillin-pot clavulanate [Augmentin] 875-125 mg tablet 1 tab PO BID Qty: 10 RF: 0 prednisone 20 mg tablet 20 mg PO DAILY Qty: 20 RF: 0 pantoprazole [Protonix] 40 mg tablet,delayed release (DR/EC) 40 mg PO DAILY Qty: 30 RF: 0 Continued atorvastatin 20 MG tablet 40 mg PO QHS RF: 0 oxycodone-acetaminophen 1 TABLET tablet 1 tab PO BID RF: 0 zolpidem 5 MG tablet 5 mg PO QHS PRN PRN (Reason: Sleep) RF: 0 Combivent Respimat 20-100 mcg/actuation mist 1 puff INHALATION 4X/DAY RF: 0 gabapentin 600 mg tablet 1,200 mg PO BID RF: 0 citalopram 10 mg tablet 10 mg PO DAILY RF: 0 aspirin 81 mg tablet,delayed release (DR/EC) 81 mg PO DAILY RF: 0 budesonide 0.5 mg/2 mL suspension for nebulization 0.5 mg inhalation Q12H RF: 0 zolpidem 5 mg tablet 5 - 10 mg PO QHS RF: 0 ipratropium bromide 42 mcg (0.06 %) [place],Non-Aerosol 2 spray INTRANASAL TID RF: 0 diclofenac sodium 1 % Gel 2 g TOPICAL 4X/DAY RF: 0 duloxetine 40 mg capsule,delayed release(DR/EC) 40 mg PO DAILY RF: 0 oxycodone-acetaminophen [Percocet] 5-325 mg Tablet 1 tab PO BID PRN PRN (Reason: Breakthrough Pain) RF: 0 multivitamin Tablet 1 tab PO DAILY RF: 0 Changed albuterol sulfate [ProAir HFA] 1 PUFF inhaler 2 puff inhalation Q4H PRN PRN (Reason: Sob &/Or Wheezing) Qty: 0 RF: 0 Discontinued fluconazole 100 mg tablet 100 mg PO DAILY RF: 0 prednisone 10 mg tablet 10 mg PO DAILY RF: 0 guaifenesin 600 mg Tablet Extended Release 600 mg PO BID PRN (Reason: Congestion) RF: 0 tamsulosin 0.4 mg capsule 0.4 mg PO QHS RF: 0 Referrals / Follow Up: Wallace Beck MD [STAFF PHYSICIAN] - Within 2 Weeks (for BPH with intermittent urine retention) Joyce Damon MD [Primary Care Provider] - Within 1 Week (Advanced COPD, bronchiectasis and bronchiolitis) Disposition Disposition (needs filled in before D/C Order can be placed): Home, Self Care
--- NOTE | 2021-05-07 10:14 | CASEMGMT ---
This RANDALL BURGOS contacted pt on this date as requested by pt's during discharge follow-up call. Pt's answered and states pt is a little better today. Reports to have completed the antibiotic but questions need for additional doses. Reiterated hospitalist's intent to have the 5 days of antibiotic after discharge and need to address further doses with pt's PCP or financial services intern. Pt's states pt has an appointment with his financial services intern on Thursday 05/11 and will discuss with him at that time. Pt reports his PO to be 96% on 6.5l/min of O2. Discussed home O2 liter flow. Noted pt to have been at 4l/min prior to discharge. No ambulating PO noted. Pt's states she will try to get pt to lower O2 liter flow but states pt controls this and is not sure she will be able to get him to lower this. States when he is up and around he is needing increased O2. States she will also discuss this with financial services intern. Pt with c/o continued congestion and yellow noted after blowing his nose. Encouraged pt's to discuss this financial services intern or PCP or if pt begins to worsen to return to the ED for evaluation. Pt's expressed understanding. No additional questions or concerns. Aneta Franco RN CM
== END 2021-05-02 13:25 | disposition home or self-care (01) | DRG 190 ==
LOC: ED 16:45 → MS3 22:04
PROVIDERS: Internal Medicine; Admitting Provider Hospitalist; Emergency Provider Emergency Medicine; PCP Internal Medicine; Visit Provider Internal Medicine
DX: J44.1 Chronic obstructive pulmonary disease with (acute) exacerbation (principal); J96.21 Acute and chronic respiratory failure with hypoxia; E43 Unspecified severe protein-calorie malnutrition; J96.22 Acute and chronic respiratory failure with hypercapnia; Z68.1 Body mass index [BMI] 19.9 or less, adult; I71.4 Abdominal aortic aneurysm, without rupture; E78.5 Hyperlipidemia, unspecified; E87.5 Hyperkalemia; F41.8 Other specified anxiety disorders; G47.30 Sleep apnea, unspecified; I10 Essential (primary) hypertension; N40.1 Benign prostatic hyperplasia with lower urinary tract symptoms; Z99.81 Dependence on supplemental oxygen; G89.4 Chronic pain syndrome; R33.8 Other retention of urine; Z66 Do not resuscitate; Z87.19 Personal history of other diseases of the digestive system; Z85.828 Personal history of other malignant neoplasm of skin; Z98.1 Arthrodesis status; Z79.82 Long term (current) use of aspirin; Z79.899 Other long term (current) drug therapy; Z87.891 Personal history of nicotine dependence
CPT/HCPCS: 36415; 36600; 71045; 71275; 80048; 81001; 82803; 83735; 84132; 84484; 85025; 87086; 87426; 87804; 93005; 94640; 94667; 94668; 94762; 97802; 99251; 99284; 99406; Q9967; A4216; G0463; J1940

== ENCOUNTER 2021-08-24 16:48 | Emergency (ER) | payer MEDICARE, OTHER, SELFPAY ==
[2021-08-24] VITALS (9 sets, daily range): BP systolic 126–149; BP diastolic 89–98; PULSE 90–110; RESP 14–22; TEMP 36.8; O2SAT 96–100; BMI 19.3
--- NOTE | 2021-08-24 17:43 | EDS_ITS ---
HPI History of Present Illness Chief Complaint: Shortness of Breath Informant: patient Onset/Context/Timing Onset: Days (4) Context: gradual Timing: Continuous Quality: Positive for Dyspnea on exertion Worsened by: Exertion Relieved by: Rest and Albuterol Associated Symptoms cough, rhinorrhea, ear pain, sore throat, white sputum and yellow sputum; Negative for fever or chills Narrative Narrative: Patient presents with shortness of breath that has been getting worse over the past 4 days. Patient states he has a history of COPD and this feels similar to prior exacerbations. Patient states that his breathing is worse with any exertion. Patient states it is better with rest and with albuterol aerosols. Patient states he is coughing up yellow and white sputum. Patient admits to a sore throat, left ear pain, and rhinorrhea. Patient admits to some dull chest pain. Patient states this feels similar to prior episodes of chest congestion. [facility] Medical History AAA (abdominal aortic aneurysm) Anxiety Basal cell carcinoma (BCC) Chronic bronchitis with COPD (chronic obstructive pulmonary disease) Chronic hypoxemic respiratory failure Chronic lower back pain COPD (chronic obstructive pulmonary disease) Depression Diverticulitis Former smoker Hyperlipidemia Hypertension Hypoxia Inguinal hernia Lumbago On home oxygen therapy Shortness of breath Skin cancer Sleep apnea Home Medications atorvastatin 40 mg PO QHS 05/03/14 [History Last Taken 04/05/16] oxycodone-acetaminophen 1 tab PO BID 05/03/14 [History Last Taken 04/05/16] zolpidem 5 mg PO QHS PRN PRN 05/03/14 [History Last Taken 04/05/16] Combivent Respimat 1 puff INHALATION 4X/DAY 04/26/21 [History Last Taken Unknown] aspirin 81 mg PO DAILY 04/26/21 [History Last Taken Unknown] budesonide 0.5 mg INHALATION Q12H 04/26/21 [History Last Taken Unknown] citalopram 10 mg PO DAILY 04/26/21 [History Last Taken Unknown] diclofenac sodium 2 g TOPICAL 4X/DAY 04/26/21 [History Last Taken Unknown] duloxetine 40 mg PO DAILY 04/26/21 [History Last Taken Unknown] gabapentin 1,200 mg PO BID 04/26/21 [History Last Taken Unknown] ipratropium bromide 2 spray INTRANASAL TID 04/26/21 [History Last Taken Unknown] zolpidem 5 - 10 mg PO QHS 04/26/21 [History Last Taken Unknown] multivitamin 1 tab PO DAILY 04/27/21 [History Last Taken Unknown] oxycodone-acetaminophen [Percocet] 1 tab PO BID PRN PRN 04/27/21 [History Last Taken Unknown] albuterol sulfate [ProAir HFA] 2 puff INHALATION Q4H PRN PRN #0 g 05/02/21 [Rx Last Taken 05/03/14] amoxicillin-pot clavulanate [Augmentin] 1 tab PO BID #10 tab 05/02/21 [Rx Last Taken Unknown] finasteride 5 mg PO DAILY #30 tab 05/02/21 [Rx Last Taken Unknown] guaifenesin [Mucus Relief ER] 1,200 mg PO BID #14 tab 05/02/21 [Rx Last Taken Unknown] nystatin 500,000 unit PO 4X/DAY PRN #60 ml 05/02/21 [Rx Last Taken Unknown] pantoprazole [Protonix] 40 mg PO DAILY #30 tab 05/02/21 [Rx Last Taken Unknown] prednisone 20 mg PO DAILY #20 tab 05/02/21 [Rx Last Taken Unknown] tamsulosin 0.8 mg PO QHS #60 cap 05/02/21 [Rx Last Taken Unknown] prednisone 60 mg PO DAILY #15 tablet 08/24/21 [Rx Last Taken Unknown] Allergy/AdvReac Type Severity Reaction Status Date / Time venom-honey bee Allergy Vomiting Verified 04/26/21 16:13 [bee venom (honey bee)] Family History Other Heart disease Surgical History History of spinal fusion S/P herniorrhaphy Social History Smoking Status: Former smoker ROS ROS ED Constitutional Constitutional ED: Denies chills or fever(s) Eyes Eyes: Denies blurry vision or change in vision ENT ENT ED: Reports ear pain left, rhinorrhea and sore throat Cardiovascular Cardiovascular: Reports chest pain; Denies palpitations Respiratory/Chest Respiratory/Chest: Reports cough and dyspnea Gastrointestinal Gastrointestinal: Denies nausea or vomiting Genitourinary Genitourinary ED: Denies dysuria or hematuria Musculoskeletal Musculoskeletal: Reports back pain; Denies neck pain Integumentary Denies abscess or rash Neurologic Neurologic: Denies headache(s) or weakness Allergic/Immunologic Allergic/Immunologic ED: Denies mouth swelling or urticaria EXAM Physical Exam Const Vital Signs: 08/24/21 16:49 08/24/21 16:55 08/24/21 16:58 Temperature 98.3 F Temperature Source Temporal Pulse Rate 110 H Respiratory Rate 22 H Respiratory Effort Short of Breath Respiratory Depth Shallow Blood Pressure 141/92 H Blood Pressure Mean 108 Pulse Ox 98 99 Oxygen Delivery Method Non-Rebreather Non-Rebreather Nasal Cannula Oxygen Flow Rate (L/min) 15 15 6 08/24/21 17:00 08/24/21 17:01 08/24/21 18:01 Temperature Temperature Source Pulse Rate 98 Respiratory Rate 16 Respiratory Effort Respiratory Depth Blood Pressure Blood Pressure Mean Pulse Ox 99 100 96 Oxygen Delivery Method Nasal Cannula Nasal Cannula Nasal Cannula Oxygen Flow Rate (L/min) 5 4 4 08/24/21 19:20 Temperature Temperature Source Pulse Rate 90 Respiratory Rate 18 Respiratory Effort Respiratory Depth Blood Pressure 126/89 H Blood Pressure Mean 101 Pulse Ox 100 Oxygen Delivery Method Nasal Cannula Oxygen Flow Rate (L/min) 5 Positive well nourished and well developed General Appearance ED: well developed and NAD HEENT Reports moist mucous membranes Neck supple and no JVD Resp normal respiratory effort Auscultation: wheezes throughout Cardio regular rate and regular rhythm GI non-tender and non-distended Auscultation: normoactive bowel sounds Palpation: soft Neuro oriented x3, CN's II-XII intact bilaterally and no sensory deficits noted Sensorium / Orientation: alert Motor Exam: strength 5/5 throughout Psych mental status grossly normal MDM MDM MDM Narrative Medical decision making narrative: Given a DuoNeb aerosol here. Patient was given repeat albuterol aerosols. Patient was given a dose of prednisone. Patient was given IV fluids. CBC shows a mild leukocytosis of 11.5. Comprehensive metabolic profile was within normal limits. High-sensitivity troponin was normal. Portable 1 view chest x-ray was obtained. On my interpretation, lung bonilla are clear. There is normal cardiac silhouette. Bony thorax is normal. There is no acute process noted. Radiologist also interpreted the x-ray and agrees. Patient is feeling better on reevaluation. Patient is still having some wheezing. Patient was given another albuterol aerosol. Patient was given a prescription for prednisone. Patient was instructed to follow-up with his primary care physician in 3 to 5 days. Patient was instructed return if worse in any way. Patient was instructed to continue wearing his oxygen at 4 L nasal cannula as previously prescribed. Patient understood and was agreeable with the plan. All questions were answered. Lab Data Attestation: I reviewed the patient's lab results. Labs: Laboratory Results - last 24 hr 08/24/21 08/24/21 17:50 17:50 WBC 11.5 H RBC 4.53 L Hgb 12.8 L Hct 40.6 MCV 89.6 MCH 28.3 MCHC 31.5 L RDW Std Deviation 43.2 RDW Coeff of Mac 13.2 Plt Count 334 MPV 10.2 Immature Gran % (Auto) 0.600 Neut % (Auto) 88.0 H Lymph % (Auto) 7.9 L [place] % (Auto) 3.2 Eos % (Auto) 0.1 Baso % (Auto) 0.2 Absolute Neuts (auto) 10.1 H Absolute Lymphs (auto) 0.91 Nucleated RBC % 0 Sodium 136 Potassium 4.2 Chloride 95 L Carbon Dioxide 40.0 H Anion Gap 1 L BUN 24 H Creatinine 0.72 Estim Creat Clear Calc 54.49 Est GFR (MDRD) Af Amer 138 Est GFR (MDRD) Non-Af 114 BUN/Creatinine Ratio 33.3 H Glucose 144 H Calcium 9.8 Total Bilirubin 0.40 AST 19 ALT 19 Alkaline Phosphatase 89 Troponin I High Sens 9 Total Protein 7.3 Albumin 3.4 Globulin 3.9 Albumin/Globulin Ratio 0.9 Radiography Diagnostic Testing: Clinical Impression(s) from Imaging Studies Chest X-Ray 08/24/21 17:55 IMPRESSION: There are no acute findings. Electronically Signed: Bear Walker MD at 18:07 EDT Reading Location ID and State: [facility] / [place] , Service support , Discharge Plan Triage Chief Complaint: Shortness of Breath ED Provider: Nas Mckeon Dx/Rx/DC Orders Clinical Impression: COPD exacerbation, Wheezing Instructions: ED COPD Flare Prescriptions: New prednisone 20 MG tablet 60 mg PO DAILY Qty: 15 RF: 0 No Action atorvastatin 20 MG tablet 40 mg PO QHS RF: 0 oxycodone-acetaminophen 1 TABLET tablet 1 tab PO BID RF: 0 zolpidem 5 MG tablet 5 mg PO QHS PRN PRN (Reason: Sleep) RF: 0 Combivent Respimat 20-100 mcg/actuation mist 1 puff INHALATION 4X/DAY RF: 0 gabapentin 600 mg tablet 1,200 mg PO BID RF: 0 citalopram 10 mg tablet 10 mg PO DAILY RF: 0 aspirin 81 mg tablet,delayed release (DR/EC) 81 mg PO DAILY RF: 0 budesonide 0.5 mg/2 mL suspension for nebulization 0.5 mg inhalation Q12H RF: 0 zolpidem 5 mg tablet 5 - 10 mg PO QHS RF: 0 ipratropium bromide 42 mcg (0.06 %) [place],Non-Aerosol 2 spray INTRANASAL TID RF: 0 diclofenac sodium 1 % Gel 2 g TOPICAL 4X/DAY RF: 0 duloxetine 40 mg capsule,delayed release(DR/EC) 40 mg PO DAILY RF: 0 oxycodone-acetaminophen [Percocet] 5-325 mg Tablet 1 tab PO BID PRN PRN (Reason: Breakthrough Pain) RF: 0 multivitamin Tablet 1 tab PO DAILY RF: 0 nystatin 100,000 unit/mL suspension 500,000 unit PO 4X/DAY PRN (Reason: oral yeast) Qty: 60 RF: 0 tamsulosin 0.4 mg Capsule 0.8 mg PO QHS Qty: 60 RF: 0 finasteride 5 mg Tablet 5 mg PO DAILY Qty: 30 RF: 0 Mucus Relief ER 1,200 mg Tablet Extended Release 12hr 1,200 mg PO BID Qty: 14 RF: 0 amoxicillin-pot clavulanate [Augmentin] 875-125 mg tablet 1 tab PO BID Qty: 10 RF: 0 albuterol sulfate [ProAir HFA] 1 PUFF inhaler 2 puff inhalation Q4H PRN PRN (Reason: Sob &/Or Wheezing) Qty: 0 RF: 0 prednisone 20 mg tablet 20 mg PO DAILY Qty: 20 RF: 0 pantoprazole [Protonix] 40 mg tablet,delayed release (DR/EC) 40 mg PO DAILY Qty: 30 RF: 0 Primary Care Provider: Joyce Damon Referrals: Joyce Damon MD [Primary Care Provider] - 3-5 Days Disposition Disposition: Home, Self Care
--- NOTE | 2021-08-24 17:47 | EKG12_ITS ---
Test Reason : SOB Blood Pressure : / mmHG Vent. Rate : 104 BPM Atrial Rate : 104 BPM P-R Int : 120 ms QRS Dur : 082 ms QT Int : 320 ms P-R-T Axes : 088 079 076 degrees QTc Int : 420 ms Sinus tachycardia Right atrial enlargement Borderline ECG Confirmed by THIERRY RENTERIA, RUDDY ([id number]), editor dictionary RUBEN BENZ ([id number]) on 08/25/2021 11:17:14 AM Referred By: THOMAS Confirmed By:RUDDY GUADARRAMA MD
--- NOTE | 2021-08-24 17:55 | RAD_ITS ---
STUDY: XR Chest 1 View 08/24/2021 5:50 PM REASON FOR EXAM: Male, 71 years old. CHEST PAIN Dyspnea COMPARISON: 04.26.21 TECHNIQUE: XR Chest 1 View FINDINGS: There is no demonstrated pleural abnormality. The lung bonilla are hyperexpanded. Normal heart size. Normal mediastinum. Normal betty. Prominent appearing increased interstitial lung markings. Normal visualized pulmonary arteries. There is atherosclerotic calcification of the aortic arch with tortuosity. There are diffuse degenerative changes of the visualized thoracic spine. There is degenerative osteoarthritis of the bilateral shoulders. There is no demonstrated abnormality of the visualized soft tissue structures of the upper abdomen. RAD/Chest 1 View (Portable) IMPRESSION: There are no acute findings. Electronically Signed: Bear Walker MD at 18:07 EDT ,
[2021-08-24] MEDS: Ipratropium/Albuterol Sulfate 3 ML AMPUL.NEB INHALATION (18:00)
[2021-08-24 18:06] LABS: Absolute Lymphocyte Count 0.91 X10^3/uL (0.83-4.51); Absolute Neutrophil Count 10.1 X10^3/uL (2.0-7.7); Basophil# 0.02 X10^3/uL; Basophil% 0.2 % (0-1); Eosinophil# 0.01 X10^3/uL; Eosinophils% 0.1 % (0-5); Hematocrit 40.6 % (40-54); Hemoglobin 12.8 g/dL (13.0-16.5); Lymphocyte # 0.91 X10^3/ul (0.83-4.51); Lymphocyte % 7.9 % (19-41); Mean Corp Hgb Conc 31.5 g/dL (32-36); Mean Corpuscular Hgb 28.3 pg (27.0-32.0); Mean Corpuscular Volume 89.6 fL (80-94); Mean Platelet Vol. 10.2 fl (6.2-12.0); Monocyte# 0.37 X10^3/uL; Monocyte% 3.2 % (0-10); NRBC Flagged by Analyzer 0 % (0-5); Neutrophil # 10.07 X10^3/uL (2.7-7.7); Platelet Count 334 K/mm3 (150-450); RBC Distribution Width CV 13.2 % (11.6-14.6); RBC Distribution Width SD 43.2 fl (35.1-43.9); Red Blood Count 4.53 M/mm3 (4.6-6.2); White Blood Count 11.5 K/mm3 (4.4-11.0)
[2021-08-24] MEDS: predniSONE 20 MG Tablet 60 MG PO (18:07)
[2021-08-24] MEDS: 0.9% Normal Saline 1,000 ML 1000 ML IV (18:07)
[2021-08-24 18:24] LABS: ALB/GLOB Ratio 0.9 RATIO (0.9-2.4); AST(SGOT) 19 U/L (15-37); Alanine Aminotransfer ALT/SGPT 19 U/L (16-61); Albumin, Serum 3.4 g/dL (3.2-5.0); Alkaline Phosphatase 89 U/L (45-117); Anion Gap 1 (5-15); BUN 24 mg/dL (7-18); BUN/Creat Ratio 33.3 RATIO (10-20); Calcium,Total 9.8 mg/dL (8.5-10.1); Chloride 95 mmol/L (98-107); Creatinine, Serum 0.72 mg/dL (0.70-1.30); EST Glomerular Filtration Rate 114 mL/min (>60); Est Glom Filt Rate - Afr Amer 138 mL/min (>60); Estimated Creatinine Clearance 54.49 ml/min; Globulin 3.9 g/dL (2.2-4.2); Glucose 144 mg/dL (74-106); Potassium 4.2 mmol/L (3.5-5.1); Protein, Total 7.3 g/dL (6.4-8.2); Sodium Level 136 mmol/L (136-145); Troponin-I HS 9 pg/mL (3.0-78.0)
[2021-08-24] MEDS: Albuterol 2.5 MG/3 ML VIAL.NEB. INHALATION ×3 (18:24→20:11)
== END 2021-08-24 20:43 | disposition home or self-care (01) ==
PROVIDERS: Emergency Provider Emergency Medicine; PCP Internal Medicine; Visit Provider Emergency Medicine
DX: J44.1 Chronic obstructive pulmonary disease with (acute) exacerbation (principal); R06.2 Wheezing; G47.30 Sleep apnea, unspecified; Z99.81 Dependence on supplemental oxygen; Z87.891 Personal history of nicotine dependence
CPT/HCPCS: 71045; 80053; 84484; 85025; 93005; 94640; 96360; 99251; 99285; J7030; G0463

== ENCOUNTER 2021-12-10 17:10 | Inpatient (IN) | payer MEDICARE, OTHER, SELFPAY ==
[2021-12-10] VITALS (11 sets, daily range): BP systolic 127–144; BP diastolic 68–82; PULSE 92–104; RESP 16–24; TEMP 36.4–37.1; O2SAT 93–99; BMI 18.9; BMI 18.5
--- NOTE | 2021-12-10 17:20 | EKG12_ITS ---
Test Reason : SOB Blood Pressure : / mmHG Vent. Rate : 105 BPM Atrial Rate : 105 BPM P-R Int : 120 ms QRS Dur : 082 ms QT Int : 334 ms P-R-T Axes : 086 083 081 degrees QTc Int : 441 ms Sinus tachycardia with Premature atrial complexes with Aberrant conduction Low voltage QRS (Limb Leads) Right atrial enlargement Borderline ECG Confirmed by THIERRY RENTERIA, RUDDY ([id number]), graphic editor RUBEN BENZ ([id number]) on 12/11/2021 1:47:53 PM Referred By: Aquiles Confirmed By:RUDDY GUADARRAMA MD
--- NOTE | 2021-12-10 17:31 | EDS_ITS ---
HPI <ANSHUL Butler - Last Filed: 12/10/21 18:41> History of Present Illness Chief Complaint: Shortness of Breath Narrative Narrative: 71-year-old male with PMH of COPD on 7 L presents with 1.5-week history of worsening shortness of breath and more congestion with his chronic cough. He attributed this to the warm weather and also has been out of his chronic steroids for a week (prednisone 10 mg/day). He is having difficulty eating due to nausea and intermittent nonbloody loose stools and feels weak. His family member brought him in for evaluation today. He denies chest pain. No sick contacts. He follows with Rachel Harper in pulmonology. He quit smoking in December 2020. No cardiac history. PFSH <ANSHUL Butler - Last Filed: 12/10/21 18:41> [facility] Medical History (Updated 12/10/21 @ 18:[address] Tom Kwan MD) AAA (abdominal aortic aneurysm) Anxiety Basal cell carcinoma (BCC) Chronic bronchitis with COPD (chronic obstructive pulmonary disease) Chronic hypoxemic respiratory failure Chronic lower back pain COPD (chronic obstructive pulmonary disease) Depression Diverticulitis Former smoker Hyperlipidemia Hypertension Hypoxia Inguinal hernia Lumbago On home oxygen therapy Shortness of breath Skin cancer Sleep apnea Home Medications atorvastatin 20 mg tablet 40 mg PO QHS Check with primary doctor 05/03/14 [History Last Taken 04/05/16] oxycodone-acetaminophen 5 mg-325 mg tablet 1 tab PO BID Check with primary doctor 05/03/14 [History Last Taken 04/05/16] zolpidem 5 mg tablet 5 mg PO QHS PRN PRN Sleep 05/03/14 [History Last Taken 04/05/16] aspirin 81 mg tablet,delayed release 81 mg PO DAILY 04/26/21 [History Last Taken Unknown] budesonide 0.5 mg/2 mL suspension for nebulization 0.5 mg inhalation Q12H 04/26/21 [History Last Taken Unknown] citalopram 10 mg tablet 10 mg PO DAILY 04/26/21 [History Last Taken Unknown] diclofenac sodium 1 % topical gel 2 g topical 4X/DAY 04/26/21 [History Last Taken Unknown] duloxetine 40 mg capsule,delayed release 40 mg PO DAILY 04/26/21 [History Last Taken Unknown] gabapentin 600 mg tablet 1,200 mg PO BID 04/26/21 [History Last Taken Unknown] ipratropium 20 mcg-albuterol 100 mcg/actuation mist for inhalation (Combivent Respimat) 1 puff inhalation 4X/DAY 04/26/21 [History Last Taken Unknown] ipratropium bromide 42 mcg (0.06 %) nasal spray 2 spray intranasal TID 04/26/21 [History Last Taken Unknown] zolpidem 5 mg tablet 5 - 10 mg PO QHS 04/26/21 [History Last Taken Unknown] multivitamin 1 tab PO DAILY Check with primary doctor 04/27/21 [History Last Taken Unknown] oxycodone-acetaminophen 5 mg-325 mg tablet (Percocet) 1 tab PO BID PRN PRN Breakthrough Pain 04/27/21 [History Last Taken Unknown] albuterol sulfate 90 mcg/actuation aerosol inhaler (ProAir HFA) 2 puff inhalation Q4H PRN PRN Sob &/Or Wheezing #0 grams 05/02/21 [Rx Last Taken 05/03/14] amoxicillin 875 mg-potassium clavulanate 125 mg tablet (Augmentin) 1 tab PO BID #10 tabs 05/02/21 [Rx Last Taken Unknown] finasteride 5 mg tablet 5 mg PO DAILY #30 tabs 05/02/21 [Rx Last Taken Unknown] guaifenesin 1,200 mg tablet, extended release 12 hr (Mucus Relief ER) 1,200 mg PO BID #14 tabs 05/02/21 [Rx Last Taken Unknown] nystatin 100,000 unit/mL oral suspension 500,000 unit (5 mL) PO 4X/DAY PRN oral yeast #60 mL 05/02/21 [Rx Last Taken Unknown] pantoprazole 40 mg tablet,delayed release (Protonix) 40 mg PO DAILY #30 tabs 05/02/21 [Rx Last Taken Unknown] prednisone 20 mg tablet 20 mg PO DAILY #20 tabs 05/02/21 [Rx Last Taken Unknown] tamsulosin 0.4 mg capsule 0.8 mg PO QHS #60 caps 05/02/21 [Rx Last Taken Unknown] prednisone 20 mg tablet 60 mg PO DAILY #15 TABLETS 08/24/21 [Rx Last Taken Unknown] fluconazole 100 mg tablet 100 mg PO DAILY 12/10/21 [History Last Taken Unknown] Allergy/AdvReac Type Severity Reaction Status Date / Time venom-honey bee Allergy Vomiting Verified 04/26/21 16:13 [bee venom (honey bee)] Family History Other Heart disease Surgical History (Updated 12/10/21 @ 18:[address] Keyonna Georges MD) History of spinal fusion S/P herniorrhaphy Status post AAA (abdominal aortic aneurysm) repair Social History Smoking Status: Current some day smoker tobacco type: cigarettes and cigars ROS <ANSHUL Butler - Last Filed: 12/10/21 18:41> ROS ED ROS Narrative Constitutional: Positive for malaise. Negative for fever, chills. Eyes: Negative for visual change. ENT: Negative for sore throat, ear pain, rhinorrhea. CVS: Negative for palpitations, chest pain, syncope. Respiratory: Positive for shortness of breath, cough.negative for orthopnea. GI: Negative for abdominal pain, nausea, vomiting, diarrhea, constipation, melena, hematochezia. : Negative for dysuria, hematuria or frequency. Neuro: Negative for headache, motor/sensory dysfunction. Skin: Negative for rash, abscess, or wound. Musc: Negative for joint pain, swelling, trauma. Heme: Negative for easy bruising, bleeding, lymphadenopathy. EXAM <ANSHUL Butler - Last Filed: 12/10/21 18:41> Physical Exam Narrative Exam Narrative: CONST: Cachectic male sitting in bed awake and alert, pursed lip breathing. EYES: Normal inspection. NECK: Normal inspection. No stridor or retractions. RESP: Very diminished with expiratory wheezing CVS: Regular rate and rhythm, no murmur, no gallop. ABD: Soft and nontender, no guarding or rebound, nondistended. SKIN: Color normal, no rash, warm, dry, intact. EXTREMITIES: Normal appearance, no pedal edema. NEURO: Oriented x4. PSYCH: Normal affect. Const Vital Signs: 12/10/21 17:18 12/10/21 17:20 12/10/21 17:31 Temperature 97.6 F L Temperature Source Oral Pulse Rate 103 H 103 H Respiratory Rate 24 H 20 H Respiratory Effort Short of Breath Labored Accessory Muscle Use Nasal Flaring Pursed Lip Respiratory Depth Deep Respiratory Pattern Tachypnea Blood Pressure 144/80 H Blood Pressure Mean 101 Pulse Ox 97 Oxygen Delivery Method Nasal Cannula Nasal Cannula Oxygen Flow Rate (L/min) 7 7 12/10/21 17:47 12/10/21 18:40 Temperature 98.7 F Temperature Source Oral Pulse Rate 99 104 H Respiratory Rate 18 24 H Respiratory Effort Respiratory Depth Respiratory Pattern Blood Pressure 127/74 H 139/82 H Blood Pressure Mean 91 101 Pulse Ox 96 94 Oxygen Delivery Method Nasal Cannula Nasal Cannula Oxygen Flow Rate (L/min) 7 7 <Dr. Tom Kwan MD - Last Filed: 12/10/21 18:56> Physical Exam Const Vital Signs: 12/10/21 17:18 12/10/21 17:20 12/10/21 17:31 Temperature 97.6 F L Temperature Source Oral Pulse Rate 103 H 103 H Respiratory Rate 24 H 20 H Respiratory Effort Short of Breath Labored Accessory Muscle Use Nasal Flaring Pursed Lip Respiratory Depth Deep Respiratory Pattern Tachypnea Blood Pressure 144/80 H Blood Pressure Mean 101 Pulse Ox 97 Oxygen Delivery Method Nasal Cannula Nasal Cannula Oxygen Flow Rate (L/min) 7 7 12/10/21 17:47 12/10/21 18:40 Temperature 98.7 F Temperature Source Oral Pulse Rate 99 104 H Respiratory Rate 18 24 H Respiratory Effort Respiratory Depth Respiratory Pattern Blood Pressure 127/74 H 139/82 H Blood Pressure Mean 91 101 Pulse Ox 96 94 Oxygen Delivery Method Nasal Cannula Nasal Cannula Oxygen Flow Rate (L/min) 7 7 MDM <ANSHUL Butler - Last Filed: 12/10/21 18:41> [facility] MDM Narrative Medical decision making narrative: PA: Patient with history of severe COPD on 7 L at baseline presents with worsening shortness of breath or cough. He is also had nausea and decreased p.o. intake. He appears in moderate respiratory distress but nontoxic. 96% on his baseline 7 L, HR in the low 100s, otherwise normal vital signs and afebrile. He has pursed lip breathing and diminished lung sounds with diffuse expiratory wheezing. Aerosols and steroids were initiated. Blood work all unremarkable and is at baseline. EKG nonischemic, high-sensitivity troponin 11. CXR shows no interval change. Patient was treated for COPD exacerbation with aerosols/steroid and had mild improvement blood still having retractions and does not feel back to baseline. I feel he would benefit from admission for further treatment. Patient still on 7 L and at this time does not require escalation. We discussed the possibility of worsening and he does NOT want to be intubated. Case was discussed with the hospitalist for admission. I have personally performed a face to face assessment of the patient and have reviewed the OCMPA Note. I performed a substantive portion of the visit including all aspects of the following. My rogel findings include: History is remarkable shortness of breath, productive cough of opaque colored sputum. Patient has stage IV COPD by Gold criteria. Patient is on 7 L by nasal cannula. Patient denies documented fever. Patient did report chills. He denies history of VTE. Denies leg pain, swelling discoloration. Denies black or maroon-colored stool. Exam is patient is tachypneic, tachycardic. He is not hypoxic. He is in obvious respiratory distress. He has audible wheezing. He has significant expiratory wheezing on auscultation with delayed expiratory phase. Heart is rapid and regular. There is no murmur, gallop or rub. Lower extremity exam reveals no swelling, discoloration, ligamentous tension, palpable cord sounds on the distribution deep venous system. Medical Decision Making need to evaluate for [place] COPD versus pneumonia. Chest x-ray and appropriate labs were obtained. Patient was treated with systemic steroid, DuoNeb and albuterol. Other additions or changes: [None] Lab Data Labs: Laboratory Results - last 24 hr 12/10/21 12/10/21 17:30 17:30 WBC 11.4 H RBC 4.38 L Hgb 12.1 L Hct 38.9 L MCV 88.8 MCH 27.6 MCHC 31.1 L RDW Std Deviation 41.4 RDW Coeff of Mac 12.8 Plt Count 280 MPV 9.5 Immature Gran % (Auto) 0.500 Neut % (Auto) 77.6 H Lymph % (Auto) 12.1 L Person % (Auto) 6.4 Eos % (Auto) 3.0 Baso % (Auto) 0.4 Absolute Neuts (auto) 8.9 H Absolute Lymphs (auto) 1.38 Nucleated RBC % 0 Sodium 136 Potassium 3.9 Chloride 96 L Carbon Dioxide 36.0 H Anion Gap 4 L BUN 20 H Creatinine 0.68 L Estim Creat Clear Calc 53.36 Est GFR (MDRD) Af Amer 148 Est GFR (MDRD) Non-Af 122 BUN/Creatinine Ratio 29.5 H Glucose 96 Calcium 9.2 Troponin I High Sens 11 Radiography Diagnostic Testing: ED attending interpretation of chest x-ray shows no acute infiltrate, no interval change from prior. EKG Initial EKG: Attestation: I personally reviewed and interpreted this EKG as follows: Interpretation: No Acute Injury Pattern and Sinus Tachycardia Comments: Sinus tachycardia with PACs, no acute ischemia, normal intervals Prior EKG tracings: available for review Prior: Unchanged <Dr. Tom Kwan MD - Last Filed: 12/10/21 18:56> MDM MDM Narrative Medical decision making narrative: PA: Patient with history of severe COPD on 7 L at baseline presents with worsening shortness of breath or cough. He is also had nausea and decreased p.o. intake. He appears in moderate respiratory distress but nontoxic. 96% on his baseline 7 L, HR in the low 100s, otherwise normal vital signs and afebrile. He has pursed lip breathing and diminished lung sounds with diffuse expiratory wheezing. Aerosols and steroids were initiated. Blood work all unremarkable and is at baseline. EKG nonischemic, high-sensitivity troponin 11. CXR shows no interval change. Patient was treated for COPD exacerbation with aerosols/steroid and had mild improvement blood still having retractions and does not feel back to baseline. I feel he would benefit from admission for further treatment. Patient still on 7 L and at this time does not require escalation. We discussed the possibility of worsening and he does NOT want to be intubated. Case was discussed with the hospitalist for admission. I have personally performed a face to face assessment of the patient and have reviewed the COMAP Note. I performed a substantive portion of the visit including all aspects of the following. My rogel findings include: History is remarkable shortness of breath, productive cough of opaque colored sputum. Patient has stage IV COPD by Gold criteria. Patient is on 7 L by nasal cannula. Patient denies documented fever. Patient did report chills. He denies history of VTE. Denies leg pain, swelling discoloration. Denies black or maroon-colored stool. Exam is patient is tachypneic, tachycardic. He is not hypoxic. He is in obvious respiratory distress. He has audible wheezing. He has significant expiratory wheezing on auscultation with delayed expiratory phase. Heart is rapid and regular. There is no murmur, gallop or rub. Lower extremity exam reveals no swelling, discoloration, ligamentous tension, palpable cord sounds on the distribution deep venous system. Medical Decision Making need to evaluate for [place] COPD versus pneumonia. Chest x-ray and appropriate labs were obtained. Patient was treated with systemic steroid, DuoNeb and albuterol. Other additions or changes: Patient still is using accessory muscles does not feel comfortable going home. He still has expiratory wheezes with prolonged expiratory phase. He is still tachycardic. We will have reconciler contact hospitalist for admission Lab Data Attestation: I reviewed the patient's lab results. Labs: Laboratory Results - last 24 hr 12/10/21 12/10/21 17:30 17:30 WBC 11.4 H RBC 4.38 L Hgb 12.1 L Hct 38.9 L MCV 88.8 MCH 27.6 MCHC 31.1 L RDW Std Deviation 41.4 RDW Coeff of Mac 12.8 Plt Count 280 MPV 9.5 Immature Gran % (Auto) 0.500 Neut % (Auto) 77.6 H Lymph % (Auto) 12.1 L Person % (Auto) 6.4 Eos % (Auto) 3.0 Baso % (Auto) 0.4 Absolute Neuts (auto) 8.9 H Absolute Lymphs (auto) 1.38 Nucleated RBC % 0 Sodium 136 Potassium 3.9 Chloride 96 L Carbon Dioxide 36.0 H Anion Gap 4 L BUN 20 H Creatinine 0.68 L Estim Creat Clear Calc 53.36 Est GFR (MDRD) Af Amer 148 Est GFR (MDRD) Non-Af 122 BUN/Creatinine Ratio 29.5 H Glucose 96 Calcium 9.2 Troponin I High Sens 11 Discharge Plan Triage Chief Complaint: Shortness of Breath ED Midlevel Provider: Brit Samson ED Provider: Tom Kwan Dx/Rx/DC Orders Clinical Impression: Acute exacerbation of chronic obstructive pulmonary disease (COPD), Acute exacerbation of chronic bronchitis, Acute bronchospasm Primary Care Provider: Joyce Damon Disposition Disposition: [facility]
[2021-12-10] MEDS: Ipratropium/Albuterol Sulfate 3 ML AMPUL.NEB INHALATION ×3 (17:33→21:18)
[2021-12-10 17:45] LABS: Absolute Lymphocyte Count 1.38 X10^3/uL (0.83-4.51); Absolute Neutrophil Count 8.9 X10^3/uL (2.0-7.7); Basophil# 0.04 X10^3/uL; Basophil% 0.4 % (0-1); Eosinophil# 0.34 X10^3/uL; Hematocrit 38.9 % (40-54); Hemoglobin 12.1 g/dL (13.0-16.5); Lymphocyte # 1.38 X10^3/ul (0.83-4.51); Lymphocyte % 12.1 % (19-41); Mean Corp Hgb Conc 31.1 g/dL (32-36); Mean Corpuscular Hgb 27.6 pg (27.0-32.0); Mean Corpuscular Volume 88.8 fL (80-94); Mean Platelet Vol. 9.5 fl (6.2-12.0); Monocyte# 0.73 X10^3/uL; Monocyte% 6.4 % (0-10); NRBC Flagged by Analyzer 0 % (0-5); Neutrophil # 8.86 X10^3/uL (2.7-7.7); Neutrophil % 77.6 % (47-70); Platelet Count 280 K/mm3 (150-450); RBC Distribution Width CV 12.8 % (11.6-14.6); RBC Distribution Width SD 41.4 fl (35.1-43.9); Red Blood Count 4.38 M/mm3 (4.6-6.2); White Blood Count 11.4 K/mm3 (4.4-11.0)
[2021-12-10] MEDS: MethylPREDNISolone 125 MG/2 ML Vial IV (17:45)
[2021-12-10] MEDS: 0.9% Normal Saline 1,000 ML 999 ML IV (17:45)
[2021-12-10] MEDS: Ondansetron 4 MG/2 ML Vial IV (17:45)
--- NOTE | 2021-12-10 17:49 | RAD_ITS ---
STUDY: X-RAY CHEST REASON FOR EXAM: Male, 71 years old. dyspnea TECHNIQUE: Single AP portable view of the chest. COMPARISON: 08/24/2021, CT chest 04/30/2021.. FINDINGS: Stable granuloma in the right upper lobe. The lungs are otherwise clear. Chronic scarring in the left costophrenic angle. Normal size heart. Normal mediastinum and betty. Normal visualized pulmonary arteries. Normal visualized aortic arch and descending thoracic aorta. Normal visualized thoracic spine. Normal visualized ribs, clavicles, and shoulders. There is no demonstrated abnormality of the visualized soft tissue structures of the upper abdomen. RAD/Chest 1 View (Portable) IMPRESSION: No acute findings. Electronically Signed: Rossana Manley MD at 19:00 EDT Reading Location ID and State: [id number] / Tel , Service support ,
[2021-12-10 18:04] LABS: Anion Gap 4 (5-15); BUN 20 mg/dL (7-18); BUN/Creat Ratio 29.5 RATIO (10-20); Calcium,Total 9.2 mg/dL (8.5-10.1); Chloride 96 mmol/L (98-107); Creatinine, Serum 0.68 mg/dL (0.70-1.30); EST Glomerular Filtration Rate 122 mL/min (>60); Est Glom Filt Rate - Afr Amer 148 mL/min (>60); Estimated Creatinine Clearance 53.36 ml/min; Glucose 96 mg/dL (74-106); Potassium 3.9 mmol/L (3.5-5.1); Sodium Level 136 mmol/L (136-145); Troponin-I HS 11 pg/mL (3.0-78.0)
--- NOTE | 2021-12-10 18:34 | HP.PCM.HOS_ITS ---
HPI - General General Date of Admission: 12/10/21 Date of Service: 12/10/21 Chief Complaint: Dyspnea. HPI Narrative The patient is a 71 y/o M w/ PMHx: Chronic COPD w/ Chronic Hypoxic Respiratory Failure (7L NC chronically), Anxiety and Depression, Hx AAA s/p repair, Former tobacco use, HTN, HLD, RADHA, Chronic back pain s/p prior spinal fusion who presents to the [facility] ED on 12/10/21 with history of 1.5 weeks of progressively worsening fatigue, malaise, dyspnea, congestion with cough with productive sputum felt potentially secondary to alterations in the weather setting off his COPD reporting that he is been out of his chronic steroids and normally takes 10 mg daily with difficulty with oral intake, nausea as well as nonbloody occasiona l loose stools with associated abdominal generalized cramping with family prompting him to come into the ED given not improving in addition to her family reported temperature 102 on day of presentation at home. Family did attempt initially to take him to the urgent care for evaluation but secondary to his hypoxia and apparently sent him to the ED for evaluation. Family is concerned that his been desaturating at home into the low 80s which is not common for him. Family also reports wheezing. In the ED patient reported to be using accessory muscles, tachypneic with evident rhonchi and wheezing with concern for respiratory distress. Work-up in the ED included T97.6, heart rate initially 103 , BP 144/80, respiratory rate 27, initially 97% on home 7L NC level, CBC with WC 11.4, hemoglobin 12.1, MCV 88.8, platelet 280 with left shift, BMP with chloride 96, CO2 36, BUN/creat 20/0.68, troponin 11, rapid COVID antigen negative, chest x-ray preliminary without acute changes with chronic findings. In the ED patient ministered Zofran 4 mg IV x1, Solu-Medrol 125 mg IV x1 as well as albuterol and normal saline bolus. [facility] Medical History (Updated 12/10/21 @ 19:[address] Keyonna Georges MD) AAA (abdominal aortic aneurysm) Anxiety Basal cell carcinoma (BCC) Chronic bronchitis with COPD (chronic obstructive pulmonary disease) Chronic hypoxemic respiratory failure Chronic lower back pain COPD (chronic obstructive pulmonary disease) Depression Diverticulitis Former smoker Hyperlipidemia Hypertension Hypoxia Inguinal hernia Lumbago On home oxygen therapy Shortness of breath Skin cancer Sleep apnea Home Medications atorvastatin 20 mg tablet 40 mg PO QHS Check with primary doctor 05/03/14 [History Last Taken 04/05/16] oxycodone-acetaminophen 5 mg-325 mg tablet 1 tab PO TID PRN PRN Pain 05/03/14 [History Last Taken 12/10/21] zolpidem 5 mg tablet 5 mg PO QHS PRN PRN Sleep 05/03/14 [History Last Taken 12/09/21] budesonide 0.5 mg/2 mL suspension for nebulization 0.5 mg inhalation Q12H 04/26/21 [History Last Taken Unknown] citalopram 10 mg tablet 10 mg PO DAILY MENTAL HEALTH 04/26/21 [History Last Taken Unknown] duloxetine 40 mg capsule,delayed release 40 mg PO DAILY MENTAL HEALTH 04/26/21 [History Last Taken Unknown] gabapentin 600 mg tablet 1,200 mg PO TID NERVE PAIN 04/26/21 [History Last Taken 12/10/21] ipratropium 20 mcg-albuterol 100 mcg/actuation mist for inhalation (Combivent Respimat) 1 puff inhalation 4X/DAY BREATHING 04/26/21 [History Last Taken 12/10/21] ipratropium bromide 42 mcg (0.06 %) nasal spray 2 spray intranasal TID BREATHING 04/26/21 [History Last Taken Unknown] multivitamin 1 tab PO DAILY SUPPLEMENT 04/27/21 [History Last Taken Unknown] albuterol sulfate 90 mcg/actuation aerosol inhaler (ProAir HFA) 2 puff inhalation Q4H PRN PRN Sob &/Or Wheezing #0 grams 05/02/21 [Rx Last Taken 05/03/14] azithromycin 250 mg tablet 250 mg PO DAILY ANTIBIOTIC 12/10/21 [History Last Taken 12/09/21] finasteride 5 mg tablet 5 mg PO DAILY PROSTATE 12/10/21 [History Last Taken Unknown] fluconazole 100 mg tablet 100 mg PO DAILY 12/10/21 [History Last Taken Unknown] prednisone 20 mg tablet 10 mg PO DAILY STEROID 12/10/21 [History Last Taken Unknown] tamsulosin 0.4 mg capsule 0.4 mg PO QHS PROSTATE 12/10/21 [History Last Taken Unknown] Allergy/AdvReac Type Severity Reaction Status Date / Time venom-honey bee Allergy Vomiting Verified 04/26/21 16:13 [bee venom (honey bee)] Family History (Updated 12/10/21 @ 19:[address] Keyonna Georges MD) Mother Heart disease Father Heart disease Surgical History (Updated 12/10/21 @ 19:[address] Keyonna Georges MD) History of spinal fusion S/p bilateral carpal tunnel release S/P herniorrhaphy S/P right rotator cuff repair Status post AAA (abdominal aortic aneurysm) repair Social History (Updated 12/10/21 @ 19:[address] Keyonna Georges MD) household members: spouse Smoking Status: Former smoker how long ago did patient quit smoking: Quit cigarette/cigar usage 2019, notes started age 24 until quit, 1 ppd. alcohol intake: never substance use type: does not use ROS ROS Narrative Admission Review of Systems: CONSTITUTIONAL: No weight loss, + fever, chills, weakness or fatigue. HEENT: Eyes: No visual loss, blurred vision, double vision or yellow sclerae. Ears, Nose, Throat: No hearing loss, sneezing, congestion, runny nose or sore throat. SKIN: No rash or itching, lesions, wounds. CARDIOVASCULAR: No chest pain, chest pressure or chest discomfort, palpitations, edema, orthopnea, syncopal events. RESPIRATORY: + Shortness of breath, cough with increased sputum, wheezing, No hemoptysis. GASTROINTESTINAL: No anorexia, nausea, diarrhea, abdominal cramping, No vomiting, melena, BRBPR. GENITOURINARY: No dysuria, frequency, urgency or retention. NEUROLOGICAL: No headache, dizziness, syncope, paralysis, ataxia, numbness or tingling in the extremities, focal weakness, change in bowel or bladder control, seizure. MUSCULOSKELETAL: + muscle, back pain, joint pain or stiffness. HEMATOLOGIC: + anemia, bleeding or bruising. LYMPHATICS: No enlarged nodes. No history of splenectomy. PSYCHIATRIC: + history of depression or anxiety. ENDOCRINOLOGIC: No reports of sweating, cold or heat intolerance. No polyuria or polydipsia. ALLERGIES: + history of rhinitis. Vital Signs Vital Signs Vital Signs: 12/10/21 17:18 12/10/21 17:20 12/10/21 17:31 Temperature 97.6 F L Temperature Source Oral Pulse Rate 103 H 103 H Respiratory Rate 24 H 20 H Respiratory Effort Short of Breath Labored Accessory Muscle Use Nasal Flaring Pursed Lip Respiratory Depth Deep Respiratory Pattern Tachypnea Blood Pressure 144/80 H Blood Pressure Mean 101 Pulse Ox 97 Oxygen Delivery Method Nasal Cannula Nasal Cannula Oxygen Flow Rate (L/min) 7 7 12/10/21 17:47 Temperature Temperature Source Pulse Rate 99 Respiratory Rate 18 Respiratory Effort Respiratory Depth Respiratory Pattern Blood Pressure 127/74 H Blood Pressure Mean 91 Pulse Ox 96 Oxygen Delivery Method Nasal Cannula Oxygen Flow Rate (L/min) 7 Weight Weight: 124 lb 8.979 oz Body Mass Index (BMI) 18.9 Physical Exam Narrative Physical Examination: General: Awake, alert, oriented x 3 including person, place and recent events, extremely hard of hearing, need to speak into the right ear only, see upright in the ED bed, evidence of ongoing respiratory distress with increased work of breathing, accessory muscle usage and increased respiratory rate. Skin: Normal color, normal turgor, no icterus, no cyanosis except occasional staged ecchymoses. HEENT: AT/NC, EOMI, PERRLA, mildly dry MM, no carotid bruits or JVD noted. Lungs: Significantly diminished, tight, increased work of breathing, accessory muscle usage, evidence of distress, diffuse expiratory wheezing. Heart: Mildly tachycardic with regular rhythm; no gallop, rub audible. Abdomen: Soft, thin and cachectic habitus, evidence of retraction, mild generalized discomfort but no rebound or guarding, ND, distant normal BS, no HSM. Extremities: No cyanosis, clubbing, or edema. Evidence of muscle wasting. Neurological: Patient awake, alert, oriented as noted, cognitive function appears intact; pupils equally reactive to light and accommodation, cranial nerves II-XII grossly normal, moving all 4 extremities, no focal deficits, strength severely global decrease secondary to acute presentation. Psychiatric: Affect appears flat, fatigued, ill-appearing, evidence of respiratory distress no acute evidence of depressive or anxiety feelings but does have underlying history. Results Lab / Micro Data Result Diagrams: 12/10/21 17:30 12/10/21 17:30 Labs: Laboratory Results - last 24 hr 12/10/21 17:30: WBC 11.4 H, RBC 4.38 L, Hgb 12.1 L, Hct 38.9 L, MCV 88.8, MCH 27.6, MCHC 31.1 L, RDW Std Deviation 41.4, RDW Coeff of Mac 12.8, Plt Count 280, MPV 9.5, Immature Gran % (Auto) 0.500, Neut % (Auto) 77.6 H, Lymph % (Auto) 12.1 L, [place] % (Auto) 6.4, Eos % (Auto) 3.0, Baso % (Auto) 0.4, Absolute Neuts (auto) 8.9 H, Absolute Lymphs (auto) 1.38, Nucleated RBC % 0 12/10/21 17:30: Sodium 136, Potassium 3.9, Chloride 96 L, Carbon Dioxide 36.0 H, Anion Gap 4 L, BUN 20 H, Creatinine 0.68 L, Estim Creat Clear Calc 53.36, Est GFR (MDRD) Af Amer 148, Est GFR (MDRD) Non-Af 122, BUN/Creatinine Ratio 29.5 H, Glucose 96, Calcium 9.2, Troponin I High Sens 11 Micro: Microbiology 12/10/21 17:37 Nasal Secretion SARS-CoV-2 Antigen (Rapid) - Final Assessment & Plan Assessment/Plan (1) Acute and chronic respiratory failure with hypoxia: (2) Acute exacerbation of chronic obstructive pulmonary disease (COPD): PLAN: Plan The patient is a 71 y/o M w/ PMHx: Chronic COPD w/ Chronic Hypoxic Respiratory Failure (7L NC chronically), Anxiety and Depression, Hx AAA s/p repair, Former tobacco use, HTN, HLD, RADHA, Chronic back pain s/p prior spinal fusion who presents to the [facility] ED on 12/10/21 with history of 1.5 weeks of progressively worsening fatigue, malaise, dyspnea, congestion with cough with productive sputum felt potentially secondary to alterations in the weather setting off his COPD reporting that he is been out of his chronic steroids and normally takes 10 mg daily with difficulty with oral intake, nausea as well as nonbloody occasional loose stools with associated abdominal generalized cramping with family prompting him to come into the ED given not improving in addition to her family reported temperature 102 on day of presentation at home. #1. Acute on chronic COPD exacerbation w/ Acute on Chronic Hypoxic Respiratory Failure with evidence of respiratory distress: Will admit to PCU to be cautious given notable oxygenation requirement, given history ot expediate improvement will attempt BIPAP placement w/ then wean as able to home supplementation, ABG requested also, continue ATC duonebs, PRN albuterol, IV methylprednisolone, HOB, IS parameters, will request sputum cultures, respiratory full viral panel, request COVID PCR given illness timeline the antigen only appropriate for first initial 5 days of symptoms and sputum Cx as well as procalcitonin. Will pre- emptively place on Levaquin given risk of pseudomonas based on clinical history and history upon presentation but de-escalate off if appropriate. Given loose stools will also request c-diff and enteric. Patient of note is also on chronic fluconazole and azithromycin which will be continued. Given his significant disease history low threshold for involvement of pulmonary medicine if any worsening status. #2. Severe protein calorie malnutrition: Evidenced by significant fat and muscle loss on examination, BMI 18, nutrition consulted for recommendations. #3. Hypertension: From current list on a regimen, monitor blood pressures and appropriate add regimen, as needed IV hydralazine in interim. #4. Hyperlipidemia: We will continue patient on statin therapy. #5. Chronic back pain with radiculopathy: We will continue patient home chronic pain regimen cautiously but hold for sedation in addition to patient chronic gabapentin regimen. #6. Former tobacco use: Encourage continued tobacco cessation. #7. RADHA: Using BiPAP continuous as noted above given respiratory distress component. #8. BPH: We will continue patient home finasteride and Flomax regimen. #9. Anxiety and depression: We will continue patient home duloxetine and citalopram regimen. #10. History AAA: Status postrepair, will continue aspirin, statin, not on hypertensive regimen. #11. DVT prophylaxis: SCDs, Lovenox. #12. CODE status: Patient JACKIE is his and son and living will is currently in place. Discussed CODE status at length including difference between FULL code, DNR-CCA and DNR-CC status. Following discussions about the differences in these status, requested DNR-CCA, no intubation status. Did discuss with patient given his significant underlying comorbidities and status would be appropriate for consideration palliative care consultation and discussed this preliminarily. Advanced Care Planning Face to Face Time: 16 minutes. Charges/Coding Visit Charges Inpatient E&M: 13340 Init Hosp L3 Procedures Hospitalists Procedures: 54568 Advncd Care Plan 30 Min
[2021-12-10 19:59] LABS: Procalcitonin 0.07 ng/mL (0.00-0.09)
[2021-12-10 20:00] LABS: Allen Test Positive; Base Excess 4 mmol/L (-2 to +2); Bicarbonate 28.1 mmol/L (22-26); Blood Gas Specimen Type ART; O2 Delivery Device Cannula; PO2 78 mmHG (75-100); SITE R Radial; SO2 95 % (95-99); Total Carbon Dioxide 30 mmol/L; pCO2 44.2 mmHg (35-45); pH 7.41 (7.35-7.45)
[2021-12-10] MEDS: 0.9% Normal Saline 1,000 ML 100 ML IV (20:45)
[2021-12-10] MEDS: 0.9% Saline Lock 10 ML Syringe IV (20:46)
[2021-12-10] MEDS: Atorvastatin Calcium 40 MG Tablet PO (20:48)
[2021-12-10] MEDS: Tamsulosin HCl 0.4 MG Capsule PO (20:48)
[2021-12-10] MEDS: Gabapentin 600 MG Tablet 1200 MG PO (20:48)
[2021-12-10] MEDS: guaiFENesin 1,200 MG Tablet 1200 MG PO (20:48)
[2021-12-10] MEDS: Ipratropium Bromide 0.06% NASAL SPRAY 2 SPRAY NASAL (20:49)
[2021-12-10] MEDS: oxyCODONE 5 MG Tablet PO (21:05)
[2021-12-11] VITALS (18 sets, daily range): BP systolic 123–135; BP diastolic 71–78; PULSE 87–109; RESP 12–30; TEMP 36.2–36.8; O2SAT 94–100
[2021-12-11 00:33] LABS: M R Staph aureus DNA By PCR Negative (Negative); Probe Check PASS; Specimen Processing Control PASS
[2021-12-11] MEDS: Ipratropium/Albuterol Sulfate 3 ML AMPUL.NEB INHALATION ×6 (01:25→18:48)
--- NOTE | 2021-12-11 02:05 | CPS ---
Pt says he wears a non invasive ventilator at home. But he doesn't wear it everyday but when he does its for rescue only. RT encouraged use of bipap/avaps at night at least. Pt declined but bipap is in the room in case he changes his mind.
[2021-12-11] MEDS: Albuterol 2.5 MG/3 ML VIAL.NEB. INHALATION ×2 (03:39→09:50)
[2021-12-11] MEDS: 0.9% Normal Saline 1,000 ML 100 ML IV ×2 (06:50→16:06)
[2021-12-11] MEDS: levoFLOXacin 750 MG Tablet PO (06:50)
[2021-12-11] MEDS: oxyCODONE 5 MG Tablet PO ×3 (06:50→21:07)
[2021-12-11] MEDS: Ipratropium Bromide 0.06% NASAL SPRAY 2 SPRAY NASAL ×3 (06:51→21:08)
[2021-12-11] MEDS: Gabapentin 600 MG Tablet 1200 MG PO ×3 (06:51→21:11)
[2021-12-11 07:55] LABS: Absolute Lymphocyte Count 0.77 X10^3/uL (0.83-4.51); Absolute Neutrophil Count 7.3 X10^3/uL (2.0-7.7); Basophil# 0.01 X10^3/uL; Basophil% 0.1 % (0-1); Hematocrit 38.5 % (40-54); Lymphocyte # 0.77 X10^3/ul (0.83-4.51); Lymphocyte % 9.3 % (19-41); Mean Corp Hgb Conc 31.2 g/dL (32-36); Mean Corpuscular Hgb 27.5 pg (27.0-32.0); Mean Corpuscular Volume 88.1 fL (80-94); Mean Platelet Vol. 10.1 fl (6.2-12.0); Monocyte% 1.2 % (0-10); NRBC Flagged by Analyzer 0 % (0-5); Neutrophil # 7.33 X10^3/uL (2.7-7.7); Neutrophil % 88.7 % (47-70); POSITIVE MORPHOLOGY YES; Platelet Count 233 K/mm3 (150-450); RBC Distribution Width CV 12.7 % (11.6-14.6); Red Blood Count 4.37 M/mm3 (4.6-6.2); White Blood Count 8.3 K/mm3 (4.4-11.0)
[2021-12-11 08:09] LABS: Differential Indicated SCAN CRITERIA MET
[2021-12-11 08:27] LABS: ALB/GLOB Ratio 0.8 RATIO (0.9-2.4); AST(SGOT) 19 U/L (15-37); Alanine Aminotransfer ALT/SGPT 14 U/L (16-61); Albumin, Serum 2.6 g/dL (3.2-5.0); Alkaline Phosphatase 76 U/L (45-117); Anion Gap 5 (5-15); BUN 16 mg/dL (7-18); Calcium,Total 8.5 mg/dL (8.5-10.1); Chloride 105 mmol/L (98-107); Creatinine, Serum 0.55 mg/dL (0.70-1.30); EST Glomerular Filtration Rate 155 mL/min (>60); Est Glom Filt Rate - Afr Amer 188 mL/min (>60); Estimated Creatinine Clearance 52.23 ml/min; Globulin 3.4 g/dL (2.2-4.2); Glucose 140 mg/dL (74-106); Potassium 4.3 mmol/L (3.5-5.1); Sodium Level 138 mmol/L (136-145)
[2021-12-11 08:42] LABS: Platelet Estimate ADEQUATE (ADEQ); Red Cell Morphology NORM C+C NORMAL (NORM C&C)
[2021-12-11] MEDS: Acetaminophen 325 MG Tablet 650 MG PO ×3 (09:14→21:07)
[2021-12-11] MEDS: Enoxaparin 40 MG/0.4 ML Syringe SC (09:18)
[2021-12-11] MEDS: guaiFENesin 1,200 MG Tablet 1200 MG PO ×2 (09:18→21:07)
[2021-12-11] MEDS: Fluconazole 100 MG Tablet PO (09:19)
[2021-12-11] MEDS: Azithromycin 250 MG Tablet PO (09:19)
[2021-12-11] MEDS: Finasteride 5 MG Tablet PO (09:19)
[2021-12-11] MEDS: Citalopram 10 MG Tablet PO (09:19)
[2021-12-11] MEDS: DULoxetine Hcl 20 MG Capsule 40 MG PO (09:19)
[2021-12-11] MEDS: Aspirin 81 MG TAB.CHEW PO (09:20)
--- NOTE | 2021-12-11 11:20 | PN.HOSP_ITS ---
Subjective Subjective Patient seen and examined. He was eating breakfast. Patient is very frail and states that he still feels short of breath though he thinks it is improving. He is on 9 L of oxygen. He admits to coughing and wheezing but denies any chest pain, nausea vomiting or diarrhea. Review of systems otherwise negative. Objective Data Objective Data Vital Signs: Vital Signs Temp Pulse Resp BP Pulse Ox O2 Del Method O2 Flow Rate 97.2 F L 98 17 124/75 H 98 Nasal Cannula 7 12/11/21 08:56 12/11/21 10:03 12/11/21 10:03 12/11/21 08:56 12/11/21 10:03 12/11/21 09:00 12/11/21 09:00 FiO2 40 12/11/21 10:03 Oxygen Flow Rate (L/min) 7 Oxygen Delivery Method Nasal Cannula Weight: 121 lb 14.65 oz Body Mass Index (BMI) 18.5 Intake & Output: Intake and Output for Last 24 Hours 12/09/21 12/10/21 12/11/21 23:59 23:59 23:59 Intake Total 1000 / 1000 1000 / 1000 Output Total 125 / 125 Balance 1000 / 1000 875 / 875 Lab / Micro Data Result Diagrams: 12/11/21 07:30 12/11/21 07:30 Labs: Laboratory Results - last 24 hr 12/10/21 17:30: WBC 11.4 H, RBC 4.38 L, Hgb 12.1 L, Hct 38.9 L, MCV 88.8, MCH 27.6, MCHC 31.1 L, RDW Std Deviation 41.4, RDW Coeff of Mac 12.8, Plt Count 280, MPV 9.5, Immature Gran % (Auto) 0.500, Neut % (Auto) 77.6 H, Lymph % (Auto) 12.1 L, [place] % (Auto) 6.4, Eos % (Auto) 3.0, Baso % (Auto) 0.4, Absolute Neuts (auto) 8.9 H, Absolute Lymphs (auto) 1.38, Nucleated RBC % 0 12/10/21 17:30: Sodium 136, Potassium 3.9, Chloride 96 L, Carbon Dioxide 36.0 H, Anion Gap 4 L, BUN 20 H, Creatinine 0.68 L, Estim Creat Clear Calc 53.36, Est GFR (MDRD) Af Amer 148, Est GFR (MDRD) Non-Af 122, BUN/Creatinine Ratio 29.5 H, Glucose 96, Calcium 9.2, Troponin I High Sens 11 12/10/21 18:55: Procalcitonin 0.07 12/10/21 18:55: COVID-19 (ROYAL) Not Detected 12/10/21 21:00: MRSA (PCR) Negative 12/11/21 07:30: WBC 8.3, RBC 4.37 L, Hgb 12.0 L, Hct 38.5 L, MCV 88.1, MCH 27.5, MCHC 31.2 L, RDW Std Deviation 41.0, RDW Coeff of Mac 12.7, Plt Count 233, MPV 10.1, Immature Gran % (Auto) 0.700, Neut % (Auto) 88.7 H, Lymph % (Auto) 9.3 L, [place] % (Auto) 1.2, Eos % (Auto) 0.0, Baso % (Auto) 0.1, Absolute Neuts (auto) 7.3, Absolute Lymphs (auto) 0.77 L, Nucleated RBC % 0, Platelet Estimate ADEQUATE, RBC Morphology NORM C+C 12/11/21 07:30: Sodium 138, Potassium 4.3, Chloride 105, Carbon Dioxide 28.0, Anion Gap 5, BUN 16, Creatinine 0.55 L, Estim Creat Clear Calc 52.23, Est GFR (MDRD) Af Amer 188, Est GFR (MDRD) Non-Af 155, BUN/Creatinine Ratio 29.0 H, Glucose 140 H, Calcium 8.5, Total Bilirubin 0.30, AST 19, ALT 14 L, Alkaline Phosphatase 76, Total Protein 6.0 L, Albumin 2.6 L, Globulin 3.4, Albumin/Globulin Ratio 0.8 L Micro: Microbiology 12/11/21 06:55 Urine, Random Legionella Antigen - Final 12/11/21 06:55 Urine, Random Streptococcus pneumoniae Antigen (M - Final 12/10/21 18:55 Mucosa - Nasopharyngeal Respiratory Panel (PCR) - Final 12/10/21 17:37 Nasal Secretion SARS-CoV-2 Antigen (Rapid) - Final ABG Data ABG results: ABG 12/10/21 19:56 Specimen Type ART Sample Site R Radial pH 7.41 Bicarbonate Actual 28.1 H Total CO2 30 Base Excess 4 H O2 Saturation 95 ABG pCO2 44.2 ABG pO2 78 Claudio Test Positive O2 Delivery Device Cannula Liter Flow 6.0 Radiography Diagnostic Testing: Radiology Impression Chest X-Ray 12/10/21 17:49 IMPRESSION: No acute findings. Electronically Signed: Rossana Manley MD at 19:00 EDT Reading Location ID and State: [id number] / Tel , Service support , Physical Exam Const alert and oriented x3 Constitutional Narrative: In moderate respiratory distress, looks malnourished. HEENT head/scalp atraumatic and moist oral mucous membranes Head and Scalp: normocephalic Mouth: oral and palatal mucosa normal Eyes PERRL, EOMs intact bilaterally and conjunctivae normal Neck no lymphadenopathy, supple and no JVD Resp Resp Narrative: mildly diminished breath sounds bilaterally, bilateral wheezing, no crackles. On 9L of oxygen by nasal canula Cardio regular rate, regular rhythm, S1 normal heart sound, S2 normal heart sound and no murmurs GI normal to inspection, nondistended, normoactive bowel sounds, soft to palpation, non-tender and non-distended Extremity normal to inspection, full ROM and no clubbing, cyanosis or edema Neuro oriented x3, CN's II-XII intact bilaterally, moves all extremities and no focal motor deficits Sensorium / Orientation: awake and alert Motor Exam: strength 5/5 throughout Psych Mood & Affect: anxious Assessment & Plan Assessment/Plan (1) Acute and chronic respiratory failure with hypoxia: (2) Acute exacerbation of chronic obstructive pulmonary disease (COPD): PLAN: Plan #Acute on chronic hypoxic respiratory failure due to COPD exacerbation * on 9L of oxygen. * on IV solumedrol, and IV levaquin * breathing treatment with bronchodilators * titrate oxygen to maintain sats .90% * * #Severe protein calorie malnutrition * BMi is 18.5 * nutrition consulted for dietary recommendations * #Hyperensionl #Hyperlipidemia: on statin #Chronic back pain with radiculopathy * on gabapentin * #BPH: on finasteride and flomax #Anxiety and depression: on duloxetine and citalopream #History of abdominal aortic aneurysm * s/p repair. On aspirin and statin * DVT prophylaxis: lovenox Charges/Coding Visit Charges Inpatient E&M: 61952 Subs Hosp L3
[2021-12-11] MEDS: 0.9% Saline Lock 10 ML Syringe IV (13:34)
--- NOTE | 2021-12-11 14:45 | CASEMGMT ---
RN AUBREY Face to Face with patient for initial transition planning/care coordination assessment. RN CM introduced self and role at [facility]. Patient lying in bed, alert and oriented. Patient willing to participate in assessment and is able to answer all questions appropriately. Care providers, pharmacy, and demographics verified. Patient wishes to discharge home, but willing to go to SNF if needed. Will monitor progress with therapy. Patient states he has no further needs or concerns at this time. CM to follow for discharge planning needs that may arise. 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 Patient states he is independent and usually able to ambulate the stairs. Transportation: self, DME/HHC: Patient has raised toilet, walker, NIV, nebulizer, pulse ox, [facility] Patient states he has had HHC in the past but does not recall agency. Disposition Plan: HHC vs SNF pending progress with therapy. Kristen LARA, RN, CM
[2021-12-11] MEDS: Atorvastatin Calcium 40 MG Tablet PO (21:07)
[2021-12-11] MEDS: Tamsulosin HCl 0.4 MG Capsule PO (21:07)
[2021-12-12] VITALS (20 sets, daily range): BP systolic 122–141; BP diastolic 72–79; PULSE 81–119; RESP 18–28; TEMP 36.2–37; O2SAT 91–99
[2021-12-12] MEDS: 0.9% Normal Saline 1,000 ML 100 ML IV (02:10)
[2021-12-12] MEDS: Ipratropium/Albuterol Sulfate 3 ML AMPUL.NEB INHALATION ×5 (03:42→19:41)
[2021-12-12] MEDS: Acetaminophen 325 MG Tablet 650 MG PO ×2 (05:09→09:00)
[2021-12-12] MEDS: levoFLOXacin 750 MG Tablet PO (05:09)
[2021-12-12] MEDS: oxyCODONE 5 MG Tablet PO ×3 (05:09→22:23)
[2021-12-12] MEDS: Ipratropium Bromide 0.06% NASAL SPRAY 2 SPRAY NASAL ×3 (05:09→22:15)
[2021-12-12] MEDS: Gabapentin 600 MG Tablet 1200 MG PO ×3 (05:09→22:15)
[2021-12-12 05:32] LABS: Absolute Lymphocyte Count 0.64 X10^3/uL (0.83-4.51); Absolute Neutrophil Count 14.1 X10^3/uL (2.0-7.7); Basophil# 0.02 X10^3/uL; Basophil% 0.1 % (0-1); Hematocrit 37.1 % (40-54); Hemoglobin 11.5 g/dL (13.0-16.5); Lymphocyte # 0.64 X10^3/ul (0.83-4.51); Lymphocyte % 4.2 % (19-41); Mean Corpuscular Volume 90.3 fL (80-94); Mean Platelet Vol. 9.1 fl (6.2-12.0); Monocyte# 0.41 X10^3/uL; Monocyte% 2.7 % (0-10); NRBC Flagged by Analyzer 0 % (0-5); Neutrophil # 14.11 X10^3/uL (2.7-7.7); Neutrophil % 92.5 % (47-70); Platelet Count 254 K/mm3 (150-450); RBC Distribution Width CV 12.8 % (11.6-14.6); RBC Distribution Width SD 42.2 fl (35.1-43.9); Red Blood Count 4.11 M/mm3 (4.6-6.2); White Blood Count 15.3 K/mm3 (4.4-11.0)
[2021-12-12 05:48] LABS: Anion Gap 1 (5-15); BUN 18 mg/dL (7-18); BUN/Creat Ratio 25.6 RATIO (10-20); Calcium,Total 8.7 mg/dL (8.5-10.1); Chloride 105 mmol/L (98-107); EST Glomerular Filtration Rate 117 mL/min (>60); Est Glom Filt Rate - Afr Amer 142 mL/min (>60); Estimated Creatinine Clearance 53.64 ml/min; Glucose 147 mg/dL (74-106); Potassium 3.9 mmol/L (3.5-5.1); Sodium Level 140 mmol/L (136-145)
[2021-12-12 05:53] LABS: Magnesium 2.1 mg/dL (1.6-2.6); Phosphorus 2.6 mg/dL (2.5-4.9)
[2021-12-12] MEDS: Aspirin 81 MG TAB.CHEW PO (08:50)
[2021-12-12] MEDS: Citalopram 10 MG Tablet PO (08:51)
[2021-12-12] MEDS: Enoxaparin 40 MG/0.4 ML Syringe SC (08:51)
[2021-12-12] MEDS: guaiFENesin 1,200 MG Tablet 1200 MG PO ×2 (08:51→22:16)
[2021-12-12] MEDS: Azithromycin 250 MG Tablet PO (08:51)
[2021-12-12] MEDS: DULoxetine Hcl 20 MG Capsule 40 MG PO (08:51)
[2021-12-12] MEDS: Fluconazole 100 MG Tablet PO (08:52)
[2021-12-12] MEDS: Finasteride 5 MG Tablet PO (08:53)
[2021-12-12] MEDS: Albuterol 2.5 MG/3 ML VIAL.NEB. INHALATION ×3 (09:00→22:32)
--- NOTE | 2021-12-12 10:46 | PN.HOSP_ITS ---
Subjective Subjective Patient seen and examined. He still complains of shortness of breath. He is still wheezing. HE denies any chest pain, palpitations, dizziness, nausea, vomiting or diarrhea. Review of systems is otherwise negative. He is on 8L of oxygen today. Objective Data Objective Data Vital Signs: Vital Signs Temp Pulse Resp BP Pulse Ox O2 Del Method O2 Flow Rate 98.1 F 103 H 22 H 124/72 H 97 Nasal Cannula 7 12/12/21 08:47 12/12/21 09:27 12/12/21 09:27 12/12/21 08:47 12/12/21 08:47 12/12/21 09:03 12/12/21 09:03 FiO2 40 12/11/21 10:03 Oxygen Flow Rate (L/min) 7 Oxygen Delivery Method Nasal Cannula Weight: 125 lb 3.561 oz Body Mass Index (BMI) 18.5 Intake & Output: Intake and Output for Last 24 Hours 12/10/21 12/11/21 12/12/21 23:59 23:59 23:59 Intake Total 1000 / 1000 2526.67 / 2526.67 1890 / 1890 Output Total 125 / 125 400 / 400 Balance 1000 / 1000 2401.67 / 2401.67 1490 / 1490 Medical Nutrition Assessment Dietitian: Malnutrition Criteria Met Start: 12/11/21 11:29 Freq: Status: Active Protocol: Document 12/11/21 11:29 (Rec: 12/11/21 11:29 [id number]) Nutrition Malnutrition Evidence of Malnutrition Exists Yes Malnutrition (severe): Chronic Evidenced By Suboptimal Energy Intake ( Severe),Physical Changes ( Severe) Clinical Problem Chronic Disease or Condition Related Malnutrition Etiology severe, chronic malnutrition r /t inadequate energy intake w/ increased energy needs d/t resp. failure Signs/Symptoms as evidenced by estimated PO intake meeting <75% of estimated energy needs >3 months; Severe muscle wasting/ fat loss evident per physical exam in orbital, temporal, clavicle, and acromion areas; BMI 18.5 Status Active Problem Recommendation Dietitian Recommendations/Changes continue regular diet as tolerated; ensure enlive 120mL 4x/day w/medpass for additional calories/protein if consumed. Will fortify foods when able. Lab / Micro Data Result Diagrams: 12/12/21 05:20 12/12/21 05:20 Labs: Laboratory Results - last 24 hr 12/12/21 05:20: WBC 15.3 H, RBC 4.11 L, Hgb 11.5 L, Hct 37.1 L, MCV 90.3, MCH 28.0, MCHC 31.0 L, RDW Std Deviation 42.2, RDW Coeff of Mac 12.8, Plt Count 254, MPV 9.1, Immature Gran % (Auto) 0.500, Neut % (Auto) 92.5 H, Lymph % (Auto) 4.2 L, Grady % (Auto) 2.7, Eos % (Auto) 0.0, Baso % (Auto) 0.1, Absolute Neuts (auto) 14.1 H, Absolute Lymphs (auto) 0.64 L, Nucleated RBC % 0 12/12/21 05:20: Sodium 140, Potassium 3.9, Chloride 105, Carbon Dioxide 34.0 H, Anion Gap 1 L, BUN 18, Creatinine 0.70, Estim Creat Clear Calc 53.64, Est GFR (MDRD) Af Amer 142, Est GFR (MDRD) Non-Af 117, BUN/Creatinine Ratio 25.6 H, Glucose 147 H, Calcium 8.7 12/12/21 05:20: Phosphorus 2.6, Magnesium 2.1 Micro: Microbiology 12/11/21 13:38 Sputum, Expectorated/Coughed Gram Stain - Final 12/11/21 06:55 Urine, Random Legionella Antigen - Final 12/11/21 06:55 Urine, Random Streptococcus pneumoniae Antigen (M - Final 12/10/21 18:55 Mucosa - Nasopharyngeal Respiratory Panel (PCR) - Final 12/10/21 17:37 Nasal Secretion SARS-CoV-2 Antigen (Rapid) - Final Physical Exam Const alert and oriented x3 Constitutional Narrative: In moderate respiratory distress, looks malnourished. HEENT head/scalp atraumatic and moist oral mucous membranes Head and Scalp: normocephalic Mouth: oral and palatal mucosa normal Eyes PERRL, EOMs intact bilaterally and conjunctivae normal Neck no lymphadenopathy, supple and no JVD Resp Resp Narrative: mildly diminished breath sounds bilaterally, bilateral wheezing, no crackles. On 7L of oxygen by nasal canula Cardio regular rate, regular rhythm, S1 normal heart sound, S2 normal heart sound and no murmurs GI normal to inspection, nondistended, normoactive bowel sounds, soft to palpation, non-tender and non-distended Extremity normal to inspection, full ROM and no clubbing, cyanosis or edema Neuro oriented x3, CN's II-XII intact bilaterally, moves all extremities and no focal motor deficits Sensorium / Orientation: awake and alert Motor Exam: strength 5/5 throughout Psych Mood & Affect: anxious Assessment & Plan Assessment/Plan (1) Acute and chronic respiratory failure with hypoxia: (2) Acute exacerbation of chronic obstructive pulmonary disease (COPD): PLAN: Plan #Acute on chronic hypoxic respiratory failure due to COPD exacerbation * on 7L of oxygen. * on IV solumedrol, and IV levaquin * breathing treatment with bronchodilators * titrate oxygen to maintain sats .90% * consult pulmonology as patient is very short of breath and debilitated. * #Severe protein calorie malnutrition * BMi is 18.5 * nutrition on board for dietary recommendations * #Hyperensionl #Hyperlipidemia: on statin #Chronic back pain with radiculopathy * on gabapentin * #BPH: on finasteride and flomax #Anxiety and depression: on duloxetine and citalopram #History of abdominal aortic aneurysm * s/p repair. On aspirin and statin * DVT prophylaxis: lovenox Charges/Coding Visit Charges Inpatient E&M: 96222 Subs Hosp L3
[2021-12-12] MEDS: 0.9% Saline Lock 10 ML Syringe IV ×2 (14:23→22:24)
[2021-12-12] MEDS: Atorvastatin Calcium 40 MG Tablet PO (22:16)
[2021-12-12] MEDS: Tamsulosin HCl 0.4 MG Capsule PO (22:16)
[2021-12-12] MEDS: MELATONIN 3 MG TABLET PO (22:23)
[2021-12-13] VITALS (17 sets, daily range): BP systolic 130–152; BP diastolic 77–88; PULSE 70–108; RESP 14–24; TEMP 36.6–37; O2SAT 96–100
[2021-12-13] MEDS: Ipratropium/Albuterol Sulfate 3 ML AMPUL.NEB INHALATION ×6 (03:04→23:20)
[2021-12-13] MEDS: Ipratropium Bromide 0.06% NASAL SPRAY 2 SPRAY NASAL ×3 (05:39→22:00)
[2021-12-13] MEDS: levoFLOXacin 750 MG Tablet PO (05:40)
[2021-12-13] MEDS: Gabapentin 600 MG Tablet 1200 MG PO ×3 (05:40→22:12)
[2021-12-13] MEDS: 0.9% Saline Lock 10 ML Syringe IV ×2 (05:41→14:42)
[2021-12-13] MEDS: Albuterol 2.5 MG/3 ML VIAL.NEB. INHALATION (05:43)
--- NOTE | 2021-12-13 06:07 | CPS ---
Had to step off floor to attend to situation in ER. RN would take aerosol mask off pt. if still in room.
--- NOTE | 2021-12-13 06:08 | CON.PCM.CC_ITS ---
Assessment & Plan Assessment/Plan (1) Acute exacerbation of chronic obstructive pulmonary disease (COPD): PLAN: Plan RECOMMENDATIONS: 1. Wean oxygen to maintain saturations 88 to 92%. 2. Continue scheduled bronchodilators, steroids and antimicrobials. 3. Obtain CTA chest to rule out pulmonary embolism. 4. Consider palliative care referral. 5. Continue appropriate DVT prophylaxis. IMPRESSIONS: 1. Acute on chronic hypoxemic respiratory failure secondary to COPD with exacerbation The patient has known end-stage COPD and chronic hypoxemic respiratory failure with a 7 L/min oxygen requirement at his baseline. He is on maximum therapy f rom his outpatient pulmonary provider at [facility]. There is no discernible infectious etiology identified today to account for his current exacerbation. In light of his ongoing symptomology, will obtain CTA chest to rule out pulmonary embolism. Nevertheless, this may be nothing more than an individual with end-stage COPD who would likely benefit from palliative/hospice care involvement. For now, it is reasonable to continue scheduled bronchodilators, steroids and antimicrobials. The patient apparently has access to PAP device at home but does not utilize it on a regular basis, as it is uncomfortable. He is already on daily azithromycin and prednisone as well. 2. History of obstructive sleep apnea/chronic tobacco dependency in remission/chronic pain syndrome/anxiety/depression/pulmonary cachexia Complicates care, management, recovery and prognosis. Continue home medications as indicated. From my perspective, the patient will be appropriate for palliative care referral and consideration for hospice care services. This note was generated with [employer] dictation software. It may contain incorrect words, spelling, and punctuation that were not noted in checking the note before signing. HPI Consult Data Date of Consult: 12/13/21 HPI Narrative Reason for Consultation: COPD exacerbation HPI Narrative: The patient is a 71-year-old male, with a history as outlined below, who presented to the emergency department on December 10 with shortness of breath and cough. The patient has a known history of end-stage COPD and chronic hypoxemic respiratory failure with a 7 L/min oxygen requirement at his baseline. He is currently followed by pulmonary medicine at [facility]. The patient is on a maximum triple therapy inhaler regimen at his baseline along with azithromycin and prednisone. He does report compliance with his home oxygen and medications. On presentation to the emergency department, the patient was noted to be afebrile and hemodynamically stable. He was maintaining appropriate oxygen saturations on 7 L/min via nasal cannula. Initial laboratory evaluation revealed a white blood cell count of 11,000. Chemistry profile was notable for a bicarbonate of 36. COVID and MRSA screens were negative. Arterial blood gases obtained on 6 L/min via nasal cannula demonstrated a pH of 7.41 with a PCO2 of 44 and PO2 of 78. The patient was placed on antimicrobials, bronchodilators and steroids. He was subsequently admitted to the progressive care unit for further management. [facility] Medical History (Updated 12/10/21 @ 19:[address] Keyonna Georges MD) AAA (abdominal aortic aneurysm) Anxiety Basal cell carcinoma (BCC) Chronic bronchitis with COPD (chronic obstructive pulmonary disease) Chronic hypoxemic respiratory failure Chronic lower back pain COPD (chronic obstructive pulmonary disease) Depression Diverticulitis Former smoker Hyperlipidemia Hypertension Hypoxia Inguinal hernia Lumbago On home oxygen therapy Shortness of breath Skin cancer Sleep apnea Home Medications atorvastatin 20 mg tablet 40 mg PO QHS Check with primary doctor 05/03/14 [History Last Taken 04/05/16] oxycodone-acetaminophen 5 mg-325 mg tablet 1 tab PO 5X/DAY PRN Pain 05/03/14 [History Last Taken 12/10/21] zolpidem 5 mg tablet 5 mg PO QHS PRN PRN Sleep 05/03/14 [History Last Taken 12/09/21] budesonide 0.5 mg/2 mL suspension for nebulization 0.5 mg inhalation Q12H 04/26/21 [History Last Taken Unknown] citalopram 10 mg tablet 10 mg PO DAILY MENTAL HEALTH 04/26/21 [History Last Taken Unknown] duloxetine 40 mg capsule,delayed release 40 mg PO DAILY MENTAL HEALTH 04/26/21 [History Last Taken Unknown] gabapentin 600 mg tablet 1,200 mg PO TID NERVE PAIN 04/26/21 [History Last Taken 12/10/21] ipratropium 20 mcg-albuterol 100 mcg/actuation mist for inhalation (Combivent Respimat) 1 puff inhalation 4X/DAY BREATHING 04/26/21 [History Last Taken 12/10/21] ipratropium bromide 42 mcg (0.06 %) nasal spray 2 spray intranasal TID BREATHING 04/26/21 [History Last Taken Unknown] multivitamin 1 tab PO DAILY SUPPLEMENT 04/27/21 [History Last Taken Unknown] albuterol sulfate 90 mcg/actuation aerosol inhaler (ProAir HFA) 2 puff inhalation Q4H PRN PRN Sob &/Or Wheezing #0 grams 05/02/21 [Rx Last Taken 05/03/14] azithromycin 250 mg tablet 250 mg PO DAILY ANTIBIOTIC 12/10/21 [History Last Taken 12/09/21] finasteride 5 mg tablet 5 mg PO DAILY PROSTATE 12/10/21 [History Last Taken Unknown] fluconazole 100 mg tablet 100 mg PO DAILY 12/10/21 [History Last Taken Unknown] prednisone 20 mg tablet 10 mg PO DAILY STEROID 12/10/21 [History Last Taken Unknown] tamsulosin 0.4 mg capsule 0.4 mg PO QHS PROSTATE 12/10/21 [History Last Taken Unknown] Allergy/AdvReac Type Severity Reaction Status Date / Time venom-honey bee Allergy Vomiting Verified 04/26/21 16:13 [bee venom (honey bee)] Family History (Updated 12/10/21 @ 19:[address] Keyonna Georges MD) Mother Heart disease Father Heart disease Surgical History (Updated 12/10/21 @ 19:[address] Keyonna Georges MD) History of spinal fusion S/p bilateral carpal tunnel release S/P herniorrhaphy S/P right rotator cuff repair Status post AAA (abdominal aortic aneurysm) repair Social History (Updated 12/10/21 @ 19:[address] Keyonna Georges MD) household members: spouse Smoking Status: Former smoker how long ago did patient quit smoking: Quit cigarette/cigar usage 2019, notes started age 24 until quit, 1 ppd. alcohol intake: never substance use type: does not use ROS Constitutional Constitutional: Reports fatigue and weakness Eyes Eyes: Denies blurry vision or change in vision ENT HEENT: Denies dizziness, dysphagia, epistaxis or headache(s) Cardiovascular Cardiovascular: Reports dyspnea; Denies chest pain Respiratory/Chest Respiratory/Chest: Reports cough, dyspnea and wheezing Gastrointestinal Gastrointestinal: Denies abdominal pain, diarrhea, nausea or vomiting Genitourinary Genitourinary: Denies difficulty urinating Musculoskeletal Musculoskeletal: Denies arthralgias, back pain or joint pain Integumentary Integumentary: Denies lesions, rash or skin ulcer Neurologic Neurologic: Denies abnormal gait or abnormal speech Psychiatric Psychiatric: Reports anxiety and depression Endocrine Endocrinology: Reports fatigue Hematologic/Lymphatic Hematologic/Lymphatic: Denies easy bleeding or easy bruising Physical Exam Const alert General Appearance: cooperative Orientation / Consciousness: awake Nutritional Appearance: cachectic and thin HEENT normocephalic and head/scalp atraumatic Eyes PERRL, EOMs intact bilaterally and conjunctivae normal Neck supple General: trachea midline Chest Chest Narrative: Increased AP diameter Resp Effort and Inspection: tachypneic and prolonged expiratory phase Auscultation: wheezes and diminished lung sounds Cardio S1 normal heart sound and S2 normal heart sound Rate: tachycardic GI normal to inspection, nondistended, normoactive bowel sounds Extremity no clubbing, cyanosis or edema Skin no rashes or lesions noted Neuro CN's II-XII intact bilaterally, moves all extremities and no focal motor deficits Psych cooperative and affect normal Medical Records Data Medical Nutrition Assessment Dietitian: Malnutrition Criteria Met Start: 12/11/21 11:29 Freq: Status: Active Protocol: Document 12/11/21 11:29 (Rec: 12/11/21 11:29 [id number]) Nutrition Malnutrition Evidence of Malnutrition Exists Yes Malnutrition (severe): Chronic Evidenced By Suboptimal Energy Intake ( Severe),Physical Changes ( Severe) Clinical Problem Chronic Disease or Condition Related Malnutrition Etiology severe, chronic malnutrition r /t inadequate energy intake w/ increased energy needs d/t resp. failure Signs/Symptoms as evidenced by estimated PO intake meeting <75% of estimated energy needs >3 months; Severe muscle wasting/ fat loss evident per physical exam in orbital, temporal, clavicle, and acromion areas; BMI 18.5 Status Active Problem Recommendation Dietitian Recommendations/Changes continue regular diet as tolerated; ensure enlive 120mL 4x/day w/medpass for additional calories/protein if consumed. Will fortify foods when able. Lab / Micro Data Result Diagrams: 12/13/21 06:30 12/13/21 06:30 Micro: Microbiology 12/11/21 13:38 Sputum, Expectorated/Coughed Gram Stain - Final 12/11/21 13:38 Sputum, Expectorated/Coughed Respiratory Culture - Preliminary Appears to be normal respiratory ayaz. Further studies to follow. Charges/Coding Visit Charges Inpatient E&M: 73173 Init Hosp L3
[2021-12-13 06:52] LABS: Absolute Lymphocyte Count 0.54 X10^3/uL (0.83-4.51); Absolute Neutrophil Count 13.4 X10^3/uL (2.0-7.7); Basophil# 0.01 X10^3/uL; Basophil% 0.1 % (0-1); Hematocrit 36.2 % (40-54); Hemoglobin 11.5 g/dL (13.0-16.5); Lymphocyte # 0.54 X10^3/ul (0.83-4.51); Lymphocyte % 3.7 % (19-41); Mean Corp Hgb Conc 31.8 g/dL (32-36); Mean Corpuscular Hgb 28.2 pg (27.0-32.0); Mean Corpuscular Volume 88.7 fL (80-94); Mean Platelet Vol. 10.2 fl (6.2-12.0); Monocyte# 0.43 X10^3/uL; NRBC Flagged by Analyzer 0 % (0-5); Neutrophil # 13.44 X10^3/uL (2.7-7.7); Neutrophil % 92.9 % (47-70); POSITIVE DIFFERENTIAL YES; Platelet Count 252 K/mm3 (150-450); RBC Distribution Width CV 13.2 % (11.6-14.6); RBC Distribution Width SD 42.5 fl (35.1-43.9); Red Blood Count 4.08 M/mm3 (4.6-6.2); White Blood Count 14.5 K/mm3 (4.4-11.0)
[2021-12-13 06:56] LABS: Differential Indicated SCAN CRITERIA MET
[2021-12-13 07:08] LABS: Differential Comment SCANNED
[2021-12-13 07:09] LABS: Anion Gap 2 (5-15); BUN 27 mg/dL (7-18); BUN/Creat Ratio 46.4 RATIO (10-20); Calcium,Total 9.3 mg/dL (8.5-10.1); Chloride 105 mmol/L (98-107); Creatinine, Serum 0.58 mg/dL (0.70-1.30); EST Glomerular Filtration Rate 146 mL/min (>60); Est Glom Filt Rate - Afr Amer 176 mL/min (>60); Estimated Creatinine Clearance 54.02 ml/min; Glucose 151 mg/dL (74-106); Potassium 3.9 mmol/L (3.5-5.1); Sodium Level 141 mmol/L (136-145)
--- NOTE | 2021-12-13 07:45 | CT_ITS ---
STUDY: CTA CHEST REASON FOR EXAM: Male, 71 years old. Respiratory Failure RADIATION DOSAGE (If Supplied By Facility): CTDIvol = ( 5.46 ) mGy, DLP = ( 178.44 ) mGycm TECHNIQUE: The examination was performed with the intravenous administration of IV 100mL Isovue-370. Post-processing of the angiographic images was performed, with multiplanar reformation and 3D reconstruction. Individualized dose optimization techniques were used for this CT. COMPARISON: 04/30/2021 FINDINGS: Normal enhancement of the main pulmonary artery and right and left pulmonary arteries. Normal enhancement of the bilateral peripheral pulmonary arteries. There is no demonstrated pulmonary embolism. There is atherosclerotic calcification of the aortic arch with tortuosity. There is no demonstrated aortic dissection. Normal heart and pericardium. Normal mediastinum. Normal hilar regions. Normal visualized trachea and bronchi. The lungs are hyper expanded, with flattening of the hemidiaphragms. There are no pulmonary infiltrates. Emphysematous and bullous changes predominantly in the upper lobes. Calcified granuloma in the right upper lobe. There are no pleural effusions. Normal chest wall structures. There are degenerative changes of thoracic spine. Lobulated spleen. Small hyperdense nodule of the right kidney unchanged likely benign. CT/CTA Chest W/WO Contrast IMPRESSION: 1. No evidence of pulmonary embolism or aortic dissection. 2. Emphysematous changes. 3. No acute infiltrate or pleural effusions. Electronically Signed: Harsh Foote MD at 8:47 EDT ,
[2021-12-13] MEDS: Finasteride 5 MG Tablet PO (09:29)
[2021-12-13] MEDS: Citalopram 10 MG Tablet PO (09:29)
[2021-12-13] MEDS: Enoxaparin 40 MG/0.4 ML Syringe SC (09:29)
[2021-12-13] MEDS: Aspirin 81 MG TAB.CHEW PO (09:29)
[2021-12-13] MEDS: DULoxetine Hcl 20 MG Capsule 40 MG PO (09:29)
[2021-12-13] MEDS: Fluconazole 100 MG Tablet PO (09:29)
[2021-12-13] MEDS: guaiFENesin 1,200 MG Tablet 1200 MG PO ×2 (09:29→22:07)
[2021-12-13] MEDS: Azithromycin 250 MG Tablet PO (09:29)
[2021-12-13] MEDS: oxyCODONE 5 MG Tablet PO ×3 (09:37→22:49)
--- NOTE | 2021-12-13 10:12 | PN.HOSP_ITS ---
Subjective Subjective Patient seen and examined. He still remains very short of breath and is still wheezing very audibly. He is on 8 L of oxygen. He still coughing but is not able to expectorate much. He denies any fever, any chills, any nausea vomiting or diarrhea. Review of systems otherwise negative. Objective Data Objective Data Vital Signs: Vital Signs Temp Pulse Resp BP Pulse Ox O2 Del Method O2 Flow Rate 98.2 F 91 16 143/88 H 99 Nasal Cannula 7 12/13/21 09:14 12/13/21 09:14 12/13/21 09:14 12/13/21 09:14 12/13/21 09:17 12/13/21 09:17 12/13/21 09:17 FiO2 40 12/11/21 10:03 Oxygen Flow Rate (L/min) 7 Oxygen Delivery Method Nasal Cannula Weight: 126 lb 1.671 oz Body Mass Index (BMI) 18.5 Intake & Output: Intake and Output for Last 24 Hours 12/11/21 12/12/21 12/13/21 23:59 23:59 23:59 Intake Total 2526.67 / 2526.67 1890 / 2245 355 / 355 Output Total 125 / 125 400 / 700 300 / 300 Balance 2401.67 / 2401.67 1490 / 1545 55 / 55 Medical Nutrition Assessment Dietitian: Malnutrition Criteria Met Start: 12/11/21 11:29 Freq: Status: Active Protocol: Document 12/11/21 11:29 (Rec: 12/11/21 11:29 [id number]) Nutrition Malnutrition Evidence of Malnutrition Exists Yes Malnutrition (severe): Chronic Evidenced By Suboptimal Energy Intake ( Severe),Physical Changes ( Severe) Clinical Problem Chronic Disease or Condition Related Malnutrition Etiology severe, chronic malnutrition r /t inadequate energy intake w/ increased energy needs d/t resp. failure Signs/Symptoms as evidenced by estimated PO intake meeting <75% of estimated energy needs >3 months; Severe muscle wasting/ fat loss evident per physical exam in orbital, temporal, clavicle, and acromion areas; BMI 18.5 Status Active Problem Recommendation Dietitian Recommendations/Changes continue regular diet as tolerated; ensure enlive 120mL 4x/day w/medpass for additional calories/protein if consumed. Will fortify foods when able. Lab / Micro Data Result Diagrams: 12/13/21 06:30 12/13/21 06:30 Labs: Laboratory Results - last 24 hr 12/13/21 06:30: WBC 14.5 H, RBC 4.08 L, Hgb 11.5 L, Hct 36.2 L, MCV 88.7, MCH 28.2, MCHC 31.8 L, RDW Std Deviation 42.5, RDW Coeff of Mac 13.2, Plt Count 252, MPV 10.2, Immature Gran % (Auto) 0.300, Neut % (Auto) 92.9 H, Lymph % (Auto) 3.7 L, Henry % (Auto) 3.0, Eos % (Auto) 0.0, Baso % (Auto) 0.1, Absolute Neuts (auto) 13.4 H, Absolute Lymphs (auto) 0.54 L, Nucleated RBC % 0, Differential Comment SCANNED 12/13/21 06:30: Sodium 141, Potassium 3.9, Chloride 105, Carbon Dioxide 34.0 H, Anion Gap 2 L, BUN 27 H, Creatinine 0.58 L, Estim Creat Clear Calc 54.02, Est GFR (MDRD) Af Amer 176, Est GFR (MDRD) Non-Af 146, BUN/Creatinine Ratio 46.4 H, Glucose 151 H, Calcium 9.3 Micro: Microbiology 12/11/21 13:38 Sputum, Expectorated/Coughed Gram Stain - Final 12/11/21 13:38 Sputum, Expectorated/Coughed Respiratory Culture - Preliminary GNR lactose dip brazier 12/11/21 06:55 Urine, Random Legionella Antigen - Final 12/11/21 06:55 Urine, Random Streptococcus pneumoniae Antigen (M - Final 12/10/21 18:55 Mucosa - Nasopharyngeal Respiratory Panel (PCR) - Final 12/10/21 17:37 Nasal Secretion SARS-CoV-2 Antigen (Rapid) - Final Radiography Diagnostic Testing: Radiology Impression Chest CTA 12/13/21 07:45 IMPRESSION: 1. No evidence of pulmonary embolism or aortic dissection. 2. Emphysematous changes. 3. No acute infiltrate or pleural effusions. Electronically Signed: Harsh Foote MD at 8:47 EDT , Physical Exam Const alert and oriented x3 Constitutional Narrative: In moderate respiratory distress, looks malnourished. HEENT head/scalp atraumatic and moist oral mucous membranes Head and Scalp: normocephalic Eyes PERRL, EOMs intact bilaterally and conjunctivae normal Neck no lymphadenopathy, supple and no JVD Resp Resp Narrative: mildly diminished breath sounds bilaterally, bilateral wheezing, no crackles. On 7L of oxygen by nasal canula Cardio regular rate, regular rhythm, S1 normal heart sound, S2 normal heart sound and no murmurs GI normal to inspection, nondistended, normoactive bowel sounds, soft to palpation, non-tender and non-distended Extremity normal to inspection, full ROM and no clubbing, cyanosis or edema Neuro oriented x3, CN's II-XII intact bilaterally, moves all extremities and no focal motor deficits Sensorium / Orientation: awake and alert Motor Exam: strength 5/5 throughout Psych Mood & Affect: anxious Assessment & Plan Assessment/Plan (1) Acute and chronic respiratory failure with hypoxia: (2) Acute exacerbation of chronic obstructive pulmonary disease (COPD): PLAN: Plan #Acute on chronic hypoxic respiratory failure due to COPD exacerbation * on 7L of oxygen. * on IV solumedrol, and IV levaquin * breathing treatment with bronchodilators * titrate oxygen to maintain sats .90% * pulmonology consulted as patient is very short of breath and debilitated. * patient very weak and emaciated; he has endstage COPD. Counseled about consulting hospice and palliative care, and he is agreeable to this. * CTA ordered per pulmonology showed no evidence of PE or aortic dissection, and no infiltrate or pleural effusion. Showed emphysematous changes. * #Severe protein calorie malnutrition * BMi is 18.5 * nutrition on board for dietary recommendations * #Hyperlipidemia: on statin #Chronic back pain with radiculopathy * on gabapentin * #BPH: on finasteride and flomax #Anxiety and depression: on duloxetine and citalopram #History of abdominal aortic aneurysm * s/p repair. On aspirin and statin * DVT prophylaxis: lovenox Charges/Coding Visit Charges Inpatient E&M: 17028 Subs Hosp L3
[2021-12-13] MEDS: Acetaminophen 325 MG Tablet 650 MG PO ×2 (14:39→20:08)
--- NOTE | 2021-12-13 19:26 | NURSING ---
All requested documents have been faxed to Hospice
[2021-12-13] MEDS: Atorvastatin Calcium 40 MG Tablet PO (22:07)
[2021-12-13] MEDS: Tamsulosin HCl 0.4 MG Capsule PO (22:07)
--- NOTE | 2021-12-13 23:20 | CPS ---
Pt Refused BiPAP for tonight
[2021-12-14] VITALS (14 sets, daily range): BP systolic 139–147; BP diastolic 84–88; PULSE 77–108; RESP 18–28; TEMP 36.6–36.7; O2SAT 92–100
[2021-12-14] MEDS: Acetaminophen 325 MG Tablet 650 MG PO ×4 (01:52→23:14)
[2021-12-14] MEDS: Ipratropium/Albuterol Sulfate 3 ML AMPUL.NEB INHALATION ×6 (03:00→23:24)
[2021-12-14] MEDS: oxyCODONE 5 MG Tablet PO ×5 (03:51→23:14)
[2021-12-14] MEDS: HYDROmorphone 0.5 MG/0.5 ML SYRINGE IV (05:23)
[2021-12-14] MEDS: Ipratropium Bromide 0.06% NASAL SPRAY 2 SPRAY NASAL ×3 (05:35→21:14)
[2021-12-14] MEDS: Gabapentin 600 MG Tablet 1200 MG PO ×3 (05:35→21:07)
[2021-12-14] MEDS: levoFLOXacin 750 MG Tablet PO (05:36)
[2021-12-14] MEDS: 0.9% Saline Lock 10 ML Syringe IV ×2 (05:40→14:04)
[2021-12-14 05:50] LABS: Absolute Lymphocyte Count 0.45 X10^3/uL (0.83-4.51); Absolute Neutrophil Count 11.1 X10^3/uL (2.0-7.7); Basophil# 0.01 X10^3/uL; Basophil% 0.1 % (0-1); Hematocrit 35.5 % (40-54); Hemoglobin 11.1 g/dL (13.0-16.5); Lymphocyte # 0.45 X10^3/ul (0.83-4.51); Lymphocyte % 3.8 % (19-41); Mean Corp Hgb Conc 31.3 g/dL (32-36); Mean Corpuscular Hgb 27.6 pg (27.0-32.0); Mean Corpuscular Volume 88.3 fL (80-94); Mean Platelet Vol. 10.4 fl (6.2-12.0); Monocyte% 2.5 % (0-10); NRBC Flagged by Analyzer 0 % (0-5); Neutrophil # 11.11 X10^3/uL (2.7-7.7); Neutrophil % 92.9 % (47-70); POSITIVE DIFFERENTIAL YES; Platelet Count 232 K/mm3 (150-450); RBC Distribution Width SD 41.5 fl (35.1-43.9); Red Blood Count 4.02 M/mm3 (4.6-6.2)
[2021-12-14 06:05] LABS: Differential Indicated SCAN CRITERIA MET
[2021-12-14 06:21] LABS: Anion Gap 2 (5-15); BUN 26 mg/dL (7-18); BUN/Creat Ratio 40.8 RATIO (10-20); Calcium,Total 8.8 mg/dL (8.5-10.1); Chloride 101 mmol/L (98-107); Creatinine, Serum 0.64 mg/dL (0.70-1.30); EST Glomerular Filtration Rate 131 mL/min (>60); Est Glom Filt Rate - Afr Amer 159 mL/min (>60); Estimated Creatinine Clearance 53.64 ml/min; Glucose 150 mg/dL (74-106); Potassium 3.8 mmol/L (3.5-5.1); Sodium Level 138 mmol/L (136-145)
[2021-12-14 06:31] LABS: Differential Comment SCANNED
[2021-12-14] MEDS: DULoxetine Hcl 20 MG Capsule 40 MG PO (08:06)
[2021-12-14] MEDS: Finasteride 5 MG Tablet PO (08:06)
[2021-12-14] MEDS: Aspirin 81 MG TAB.CHEW PO (08:07)
[2021-12-14] MEDS: Fluconazole 100 MG Tablet PO (08:07)
[2021-12-14] MEDS: Citalopram 10 MG Tablet PO (08:07)
[2021-12-14] MEDS: guaiFENesin 1,200 MG Tablet 1200 MG PO ×2 (08:07→21:07)
[2021-12-14] MEDS: Azithromycin 250 MG Tablet PO (08:07)
[2021-12-14] MEDS: Enoxaparin 40 MG/0.4 ML Syringe SC (08:07)
--- NOTE | 2021-12-14 10:28 | PCM.PN.INT ---
Assessment & Plan Assessment/Plan (1) Acute exacerbation of chronic obstructive pulmonary disease (COPD): PLAN: Plan RECOMMENDATIONS: 1. Wean oxygen to maintain saturations 88 to 92%. 2. Continue scheduled bronchodilators, steroids and antimicrobials. 3. Continue steroids at current dosing 4. Consider palliative care referral. 5. Continue appropriate DVT prophylaxis. IMPRESSIONS: 1. Acute on chronic hypoxemic respiratory failure secondary to COPD with exacerbation The patient has known end-stage COPD and chronic hypoxemic respiratory failure with a 7 L/min oxygen requirement at his baseline. He is on maximum therapy from his outpatient pulmonary provider at [facility]. There is no discernible infectious etiology identified today to account for his current exacerbation. CTA of the chest did not show any pulmonary embolism as an inciting event. Nevertheless, this may be nothing more than an individual with end-stage COPD who would likely benefit from palliative/hospice care involvement. For now, it is reasonable to continue scheduled bronchodilators, steroids and antimicrobials. We will keep steroids at the current dosing. The patient appears to be improving on the current regimen. The patient apparently has access to PAP device at home but does not utilize it on a regular basis, as it is uncomfortable. He is already on daily azithromycin and prednisone as well. 2. History of obstructive sleep apnea/chronic tobacco dependency in remission/chronic pain syndrome/anxiety/depression/pulmonary cachexia Complicates care, management, recovery and prognosis. Continue home medications as indicated. From my perspective, the patient will be appropriate for palliative care referral and consideration for hospice care services. This note was generated with [employer] dictation software. It may contain incorrect words, spelling, and punctuation that were not noted in checking the note before signing. Subjective Subjective Patient did well overnight. No acute issues were reported. Patient is stating that he has had more wheezing today compared to yesterday. Patient states his cough is relatively unchanged. Patient does state that he tends to use 6 L at rest and up to 8 to 10 L/min with ambulation at baseline. Objective Data Objective Data Vital Signs: Vital Signs Temp Pulse Resp BP Pulse Ox O2 Del Method O2 Flow Rate 36.7 C 86 24 H 147/88 H 100 Nasal Cannula 8 12/14/21 08:00 12/14/21 08:00 12/14/21 08:00 12/14/21 08:00 12/14/21 08:00 12/14/21 08:00 12/14/21 08:00 FiO2 40 12/11/21 10:03 Oxygen Flow Rate (L/min) 8 Oxygen Delivery Method Nasal Cannula Weight: 56.8 kg Body Mass Index (BMI) 18.5 Intake & Output: Intake and Output for Last 24 Hours 12/12/21 12/13/21 12/14/21 23:59 23:59 23:59 Intake Total 1890 / 2245 1215 / 1215 Output Total 400 / 700 550 / 550 400 / 400 Balance 1490 / 1545 665 / 665 -400 / -400 Medical Nutrition Assessment Dietitian: Malnutrition Criteria Met Start: 12/11/21 11:29 Freq: Status: Active Protocol: Document 12/11/21 11:29 (Rec: 12/11/21 11:29 [id number]) Nutrition Malnutrition Evidence of Malnutrition Exists Yes Malnutrition (severe): Chronic Evidenced By Suboptimal Energy Intake ( Severe),Physical Changes ( Severe) Clinical Problem Chronic Disease or Condition Related Malnutrition Etiology severe, chronic malnutrition r /t inadequate energy intake w/ increased energy needs d/t resp. failure Signs/Symptoms as evidenced by estimated PO intake meeting <75% of estimated energy needs >3 months; Severe muscle wasting/ fat loss evident per physical exam in orbital, temporal, clavicle, and acromion areas; BMI 18.5 Status Active Problem Recommendation Dietitian Recommendations/Changes continue regular diet as tolerated; ensure enlive 120mL 4x/day w/medpass for additional calories/protein if consumed. Will fortify foods when able. Lab / Micro Data Attestation: I reviewed the patient's lab results. Result Diagrams: 12/14/21 05:21 12/14/21 05:21 Labs: Laboratory Results - last 24 hr 12/14/21 05:21: WBC 12.0 H, RBC 4.02 L, Hgb 11.1 L, Hct 35.5 L, MCV 88.3, MCH 27.6, MCHC 31.3 L, RDW Std Deviation 41.5, RDW Coeff of Mac 13.0, Plt Count 232, MPV 10.4, Immature Gran % (Auto) 0.700, Neut % (Auto) 92.9 H, Lymph % (Auto) 3.8 L, [place] % (Auto) 2.5, Eos % (Auto) 0.0, Baso % (Auto) 0.1, Absolute Neuts (auto) 11.1 H, Absolute Lymphs (auto) 0.45 L, Nucleated RBC % 0, Differential Comment SCANNED 12/14/21 05:21: Sodium 138, Potassium 3.8, Chloride 101, Carbon Dioxide 35.0 H, Anion Gap 2 L, BUN 26 H, Creatinine 0.64 L, Estim Creat Clear Calc 53.64, Est GFR (MDRD) Af Amer 159, Est GFR (MDRD) Non-Af 131, BUN/Creatinine Ratio 40.8 H, Glucose 150 H, Calcium 8.8 Micro: Microbiology 12/11/21 13:38 Sputum, Expectorated/Coughed Gram Stain - Final 12/11/21 13:38 Sputum, Expectorated/Coughed Respiratory Culture - 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 12/11/21 06:55 Urine, Random Legionella Antigen - Final 12/11/21 06:55 Urine, Random Streptococcus pneumoniae Antigen (M - Final 12/10/21 18:55 Mucosa - Nasopharyngeal Respiratory Panel (PCR) - Final 12/10/21 17:37 Nasal Secretion SARS-CoV-2 Antigen (Rapid) - Final Physical Exam Const alert Constitutional Narrative: Conversational dyspnea noted General Appearance: cooperative Orientation / Consciousness: awake Nutritional Appearance: cachectic and thin HEENT normocephalic and head/scalp atraumatic Eyes PERRL, EOMs intact bilaterally and conjunctivae normal Neck supple General: trachea midline Chest Chest Narrative: Increased AP diameter Resp Effort and Inspection: tachypneic and prolonged expiratory phase Auscultation: wheezes and diminished lung sounds; Negative for rales or rhonchi Cardio S1 normal heart sound, S2 normal heart sound, no murmurs, no rub and no gallops Cardio Narrative: Diminished heart sounds given airway noise Rate: tachycardic GI normal to inspection, nondistended, normoactive bowel sounds Extremity General Extremity: clubbing; Negative for edema Skin no rashes or lesions noted Neuro CN's II-XII intact bilaterally, moves all extremities and no focal motor deficits Psych cooperative and affect normal Charges/Coding Visit Charges Inpatient E&M: 31631 Subs Hosp L2
--- NOTE | 2021-12-14 10:59 | CASEMGMT ---
SW met with patient. Introduced self and role at [facility]. Patient was not sure if physician recommended Hospice or Palliative. Patient said he is not sure. SW let patient know SW will have them discuss both services with him and his . Patient thanked JOSE. SW called Hospice referral line and they did receive the referral. Hospice spoke with yesterday and she told them to call her today. JOSE called Yuval at [facility] and let her know to discuss both Palliative and Hospice services with patient. Jessica DUNN
--- NOTE | 2021-12-14 13:05 | PCM.PN.HOSP ---
Subjective Subjective Follow-up on acute on chronic hypoxic respiratory failure/acute COPD exacerbation: Patient was seen and examined. He is hard of hearing. He has significant audible wheezes. Seen having breathing treatment at the time. He denied any sputum production. He remains on 8 L of oxygen. Objective Data Objective Data Vital Signs: Vital Signs Temp Pulse Resp BP Pulse Ox O2 Del Method O2 Flow Rate 98.0 F 95 23 H 147/88 H 100 Nasal Cannula 8 12/14/21 08:00 12/14/21 10:50 12/14/21 10:50 12/14/21 08:00 12/14/21 08:00 12/14/21 08:00 12/14/21 08:00 FiO2 40 12/11/21 10:03 Oxygen Flow Rate (L/min) 8 Oxygen Delivery Method Nasal Cannula Weight: 56.8 kg Body Mass Index (BMI) 18.5 Intake & Output: Intake and Output for Last 24 Hours 12/12/21 12/13/21 12/14/21 23:59 23:59 23:59 Intake Total 1890 / 2245 1215 / 1215 Output Total 400 / 700 550 / 550 400 / 400 Balance 1490 / 1545 665 / 665 -400 / -400 Medical Nutrition Assessment Dietitian: Malnutrition Criteria Met Start: 12/11/21 11:29 Freq: Status: Active Protocol: Document 12/11/21 11:29 (Rec: 12/11/21 11:29 [id number]) Nutrition Malnutrition Evidence of Malnutrition Exists Yes Malnutrition (severe): Chronic Evidenced By Suboptimal Energy Intake ( Severe),Physical Changes ( Severe) Clinical Problem Chronic Disease or Condition Related Malnutrition Etiology severe, chronic malnutrition r /t inadequate energy intake w/ increased energy needs d/t resp. failure Signs/Symptoms as evidenced by estimated PO intake meeting <75% of estimated energy needs >3 months; Severe muscle wasting/ fat loss evident per physical exam in orbital, temporal, clavicle, and acromion areas; BMI 18.5 Status Active Problem Recommendation Dietitian Recommendations/Changes continue regular diet as tolerated; ensure enlive 120mL 4x/day w/medpass for additional calories/protein if consumed. Will fortify foods when able. Lab / Micro Data Result Diagrams: 12/14/21 05:21 12/14/21 05:21 Labs: Laboratory Results - last 24 hr 12/14/21 05:21: WBC 12.0 H, RBC 4.02 L, Hgb 11.1 L, Hct 35.5 L, MCV 88.3, MCH 27.6, MCHC 31.3 L, RDW Std Deviation 41.5, RDW Coeff of Mac 13.0, Plt Count 232, MPV 10.4, Immature Gran % (Auto) 0.700, Neut % (Auto) 92.9 H, Lymph % (Auto) 3.8 L, [place] % (Auto) 2.5, Eos % (Auto) 0.0, Baso % (Auto) 0.1, Absolute Neuts (auto) 11.1 H, Absolute Lymphs (auto) 0.45 L, Nucleated RBC % 0, Differential Comment SCANNED 12/14/21 05:21: Sodium 138, Potassium 3.8, Chloride 101, Carbon Dioxide 35.0 H, Anion Gap 2 L, BUN 26 H, Creatinine 0.64 L, Estim Creat Clear Calc 53.64, Est GFR (MDRD) Af Amer 159, Est GFR (MDRD) Non-Af 131, BUN/Creatinine Ratio 40.8 H, Glucose 150 H, Calcium 8.8 Micro: Microbiology 12/11/21 13:38 Sputum, Expectorated/Coughed Gram Stain - Final 12/11/21 13:38 Sputum, Expectorated/Coughed Respiratory Culture - 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 12/11/21 06:55 Urine, Random Legionella Antigen - Final 12/11/21 06:55 Urine, Random Streptococcus pneumoniae Antigen (M - Final 12/10/21 18:55 Mucosa - Nasopharyngeal Respiratory Panel (PCR) - Final 12/10/21 17:37 Nasal Secretion SARS-CoV-2 Antigen (Rapid) - Final Physical Exam Narrative Physical exam: General: Alert, Oriented x3, Cooperative, hard of hearing, in mild respiratory distress, on 8 L of oxygen, cachectic HEENT: Atraumatic Oral: Moist Mucosa Neck: Supple Lungs: Diminished to auscultation, wheezes+++ Cardiovascular: HS I+II, regular, no murmurs Abdomen: Bowel Sounds Present, Soft, Non Tender Extremities: No edema Skin: No rashes, No breakdown Neurological: Grossly intact Psych/Mental Status: Appropriate Assessment & Plan Assessment/Plan (1) Acute exacerbation of chronic obstructive pulmonary disease (COPD): (2) Acute and chronic respiratory failure with hypoxia: PLAN: Plan 1. Acute on chronic hypoxic respiratory failure secondary to acute COPD exacerbation Patient is on 7 L of oxygen Chest x-ray on 12/10 was unremarkable. CTA of the chest on 12/13 shows no evidence of acute PE. Shows emphysematous changes. Continue with IV Solu-Medrol and Levaquin as well as breathing treatments Palliative care/hospice consulted 2. Severe protein calorie malnutrition, shear setter consulted, continue on dietary supplements 3. Anxiety/depression, continue Cymbalta and Celexa 4. History of aortic abdominal aneurysm/hyperlipidemia, continue aspirin, statin 5. DVT PPx- Lovenox SC Charges/Coding Visit Charges Inpatient E&M: 18849 Subs Hosp L2
--- NOTE | 2021-12-14 14:05 | CASEMGMT ---
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 Juan José also states that pt only has a 5L concentrator at home. Per physician and charting, pt has been wearing much more at home and using tanks as well as concentrator. Pt also noted to have anxiety. Initially, another RN CM was told pt's order was 6L continuous but this RN CM will verify again prior to d/c to have proper testing completed. Pt is currently on CM to follow. Xenia RN CM
--- NOTE | 2021-12-14 15:25 | CASEMGMT ---
Per patient's admission assessment he has a Healthcare Power of Ton Container Shipper and a Healthcare Living Will. However, they are not on file at [facility]. SW called patient's as patient was sleeping. SW asked patient's if she could bring in a copy of patient's Healthcare Power of Ton Container Shipper and a Healthcare Living Will. Jessica Paez BEEHIVE KILN [employer]AL BURNER MONA
--- NOTE | 2021-12-14 15:26 | CASEMGMT ---
SW called [facility] and spoke with Dimitry on the referral line. SW asked about an appt for patient. Dimitry looked up patient and they did contact patient's today. Patient's told them she is not ready to talk with Palliative or Hospice right now and to follow up with her on Tuesday. SW called patient's , Mariama. Introduced self and role at [facility]. SW explained referral process and that it does not commit them to any services. Mariama said the physician did not actually talk with her about this referral. JOSE explained meeting with Palliative/Hospice is to inform individuals on their services. Mariama verbalized understanding. Jessica Paez PAGE TECHNICIAN MONA
[2021-12-14] MEDS: Atorvastatin Calcium 40 MG Tablet PO (21:07)
[2021-12-14] MEDS: Tamsulosin HCl 0.4 MG Capsule PO (21:07)
[2021-12-14] MEDS: MELATONIN 3 MG TABLET PO (23:08)
[2021-12-15] VITALS (17 sets, daily range): BP systolic 122–156; BP diastolic 66–85; PULSE 77–109; RESP 17–24; TEMP 36.4–36.6; O2SAT 96–100
[2021-12-15] MEDS: Ipratropium/Albuterol Sulfate 3 ML AMPUL.NEB INHALATION ×4 (03:31→14:52)
[2021-12-15] MEDS: oxyCODONE 5 MG Tablet PO ×3 (04:00→14:37)
[2021-12-15] MEDS: Gabapentin 600 MG Tablet 1200 MG PO ×3 (05:38→21:17)
[2021-12-15] MEDS: Ipratropium Bromide 0.06% NASAL SPRAY 2 SPRAY NASAL ×3 (05:38→21:12)
[2021-12-15] MEDS: levoFLOXacin 750 MG Tablet PO (05:39)
[2021-12-15] MEDS: 0.9% Saline Lock 10 ML Syringe IV (05:42)
[2021-12-15 05:46] LABS: Absolute Lymphocyte Count 0.51 X10^3/uL (0.83-4.51); Absolute Neutrophil Count 11.7 X10^3/uL (2.0-7.7); Basophil# 0.01 X10^3/uL; Basophil% 0.1 % (0-1); Hematocrit 38.9 % (40-54); Hemoglobin 11.8 g/dL (13.0-16.5); Lymphocyte # 0.51 X10^3/ul (0.83-4.51); Mean Corp Hgb Conc 30.3 g/dL (32-36); Mean Corpuscular Hgb 27.4 pg (27.0-32.0); Mean Corpuscular Volume 90.3 fL (80-94); Mean Platelet Vol. 10.3 fl (6.2-12.0); Monocyte# 0.44 X10^3/uL; Monocyte% 3.5 % (0-10); NRBC Flagged by Analyzer 0 % (0-5); Neutrophil # 11.67 X10^3/uL (2.7-7.7); Neutrophil % 91.7 % (47-70); POSITIVE DIFFERENTIAL YES; Platelet Count 253 K/mm3 (150-450); RBC Distribution Width CV 12.7 % (11.6-14.6); RBC Distribution Width SD 42.1 fl (35.1-43.9); Red Blood Count 4.31 M/mm3 (4.6-6.2); White Blood Count 12.7 K/mm3 (4.4-11.0)
[2021-12-15 05:52] LABS: Differential Indicated SCAN CRITERIA MET
[2021-12-15 06:20] LABS: ALB/GLOB Ratio 0.9 RATIO (0.9-2.4); AST(SGOT) 18 U/L (15-37); Alanine Aminotransfer ALT/SGPT 22 U/L (16-61); Albumin, Serum 2.8 g/dL (3.2-5.0); Alkaline Phosphatase 65 U/L (45-117); Anion Gap 2 (5-15); BUN 27 mg/dL (7-18); BUN/Creat Ratio 38.7 RATIO (10-20); Calcium,Total 8.9 mg/dL (8.5-10.1); Chloride 98 mmol/L (98-107); EST Glomerular Filtration Rate 118 mL/min (>60); Est Glom Filt Rate - Afr Amer 143 mL/min (>60); Estimated Creatinine Clearance 53.64 ml/min; Globulin 3.1 g/dL (2.2-4.2); Glucose 151 mg/dL (74-106); Potassium 4.2 mmol/L (3.5-5.1); Protein, Total 5.9 g/dL (6.4-8.2); Sodium Level 138 mmol/L (136-145)
[2021-12-15 06:21] LABS: Differential Comment SCANNED
--- NOTE | 2021-12-15 07:51 | PN.CC_ITS ---
Assessment & Plan Assessment/Plan (1) Acute exacerbation of chronic obstructive pulmonary disease (COPD): PLAN: Plan RECOMMENDATIONS: 1. Wean oxygen to maintain saturations 88 to 92%. May need larger concentrator on discharge 2. Continue scheduled bronchodilators and antimicrobials. Wean steroids 3. Increase activity as tolerated 4. Consider palliative care referral. 5. Continue appropriate DVT prophylaxis. IMPRESSIONS: 1. Acute on chronic hypoxemic respiratory failure secondary to COPD with exacerbation The patient has known end-stage COPD and chronic hypoxemic respiratory failure with a 7 L/min oxygen requirement at his baseline. He is on maximum therapy from his outpatient pulmonary provider at [facility]. There is no discernible infectious etiology identified today to account for his current exacerbation. CTA of the chest did not show any pulmonary embolism as an inciting event. Nevertheless, this may be nothing more than an individual with end-stage COPD who would likely benefit from palliative/hospice care involvement. For now, it is reasonable to continue scheduled bronchodilators and antimicrobials. Some improvement over the last 24 hours, so we will attempt to wean steroids. The patient appears to be improving on the current regimen. The patient apparently has access to PAP device at home but does not utilize it on a regular basis, as it is uncomfortable. He is already on daily azithromycin and prednisone as well. 2. History of obstructive sleep apnea/chronic tobacco dependency in remission/chronic pain syndrome/anxiety/depression/pulmonary cachexia Complicates care, management, recovery and prognosis. Continue home medications as indicated. From my perspective, the patient will be appropriate for palliative care referral and consideration for hospice care services. This note was generated with [employer] dictation software. It may contain incorrect words, spelling, and punctuation that were not noted in checking the note before signing. Subjective Subjective Patient did okay overnight. No acute issues were noted on telemetry. Patient did complain of some chest pain, but reportedly this was significantly improved following aerosol therapy this morning. Patient states his cough is improving in frequency and harshness. Patient does report that he had attempted to d ecrease his oxygen, but had to go to the bathroom quickly leading to significant desaturation. Patient was placed back on 8 L/min for recovery. Objective Data Objective Data Vital Signs: Vital Signs Temp Pulse Resp BP Pulse Ox O2 Del Method O2 Flow Rate 36.4 C L 80 22 H 127/85 H 99 Nasal Cannula 8 12/15/21 05:47 12/15/21 07:30 12/15/21 07:16 12/15/21 05:47 12/15/21 07:16 12/15/21 07:16 12/15/21 07:16 FiO2 40 12/11/21 10:03 Oxygen Flow Rate (L/min) 8 Oxygen Delivery Method Nasal Cannula Weight: 57.6 kg Body Mass Index (BMI) 18.5 Intake & Output: Intake and Output for Last 24 Hours 12/13/21 12/14/21 12/15/21 23:59 23:59 23:59 Intake Total 1215 / 1215 720 / 720 Output Total 550 / 550 1999 / 1999 150 / 150 Balance 665 / 665 -1280 / -1280 -150 / -150 Medical Nutrition Assessment Dietitian: Malnutrition Criteria Met Start: 12/11/21 11:29 Freq: Status: Active Protocol: Document 12/14/21 11:36 AG (Rec: 12/14/21 15:31 [id number]) Nutrition Malnutrition Evidence of Malnutrition Exists Yes Malnutrition (severe): Chronic Evidenced By Suboptimal Energy Intake ( Severe),Physical Changes ( Severe) Clinical Problem Chronic Disease or Condition Related Malnutrition Etiology severe, chronic malnutrition r /t inadequate energy intake w/ increased energy needs d/t resp. failure Signs/Symptoms as evidenced by estimated PO intake meeting <75% of estimated energy needs >3 months; Severe muscle wasting/ fat loss evident per physical exam in orbital, temporal, clavicle, and acromion areas; BMI 19.0 Status Active Problem Recommendation Dietitian Recommendations/Changes continue regular diet as tolerated; ensure enlive 120mL 4x/day w/medpass and 240mL w/ meals for additional calories /protein if consumed. Lab / Micro Data Result Diagrams: 12/15/21 05:30 12/15/21 05:30 Labs: Laboratory Results - last 24 hr 12/15/21 05:30: WBC 12.7 H, RBC 4.31 L, Hgb 11.8 L, Hct 38.9 L, MCV 90.3, MCH 27.4, MCHC 30.3 L, RDW Std Deviation 42.1, RDW Coeff of Mac 12.7, Plt Count 253, MPV 10.3, Immature Gran % (Auto) 0.700, Neut % (Auto) 91.7 H, Lymph % (Auto) 4.0 L, [place] % (Auto) 3.5, Eos % (Auto) 0.0, Baso % (Auto) 0.1, Absolute Neuts (auto) 11.7 H, Absolute Lymphs (auto) 0.51 L, Nucleated RBC % 0, Differential Comment SCANNED 12/15/21 05:30: Sodium 138, Potassium 4.2, Chloride 98, Carbon Dioxide 38.0 H, Anion Gap 2 L, BUN 27 H, Creatinine 0.70, Estim Creat Clear Calc 53.64, Est GFR (MDRD) Af Amer 143, Est GFR (MDRD) Non-Af 118, BUN/Creatinine Ratio 38.7 H, Glucose 151 H, Calcium 8.9, Total Bilirubin 0.30, AST 18, ALT 22, Alkaline Phosphatase 65, Total Protein 5.9 L, Albumin 2.8 L, Globulin 3.1, Albumin/Globulin Ratio 0.9 Micro: Microbiology 12/11/21 13:38 Sputum, Expectorated/Coughed Gram Stain - Final 12/11/21 13:38 Sputum, Expectorated/Coughed Respiratory Culture - 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 12/11/21 06:55 Urine, Random Legionella Antigen - Final 12/11/21 06:55 Urine, Random Streptococcus pneumoniae Antigen (M - Final 12/10/21 18:55 Mucosa - Nasopharyngeal Respiratory Panel (PCR) - Final 12/10/21 17:37 Nasal Secretion SARS-CoV-2 Antigen (Rapid) - Final Physical Exam Const alert Constitutional Narrative: Improved conversational dyspnea noted General Appearance: cooperative Orientation / Consciousness: awake Nutritional Appearance: cachectic and thin HEENT normocephalic and head/scalp atraumatic General Ear: hearing grossly impaired diffuse Eyes PERRL, EOMs intact bilaterally and conjunctivae normal Neck supple General: trachea midline Chest Chest Narrative: Increased AP diameter Resp Resp Narrative: Patient receiving aerosol during my evaluation Effort and Inspection: tachypneic and prolonged expiratory phase Auscultation: diminished lung sounds; Negative for rales, rhonchi or wheezes Cardio S1 normal heart sound, S2 normal heart sound, no murmurs, no rub and no gallops Cardio Narrative: Diminished heart sounds given airway noise Rate: tachycardic GI normal to inspection, nondistended, normoactive bowel sounds Extremity General Extremity: clubbing; Negative for edema Skin no rashes or lesions noted Neuro CN's II-XII intact bilaterally, moves all extremities and no focal motor defic its Psych cooperative and affect normal Charges/Coding Visit Charges Inpatient E&M: 30686 Subs Hosp L2
[2021-12-15] MEDS: guaiFENesin 1,200 MG Tablet 1200 MG PO ×2 (08:26→21:13)
[2021-12-15] MEDS: Citalopram 10 MG Tablet PO (08:26)
[2021-12-15] MEDS: Finasteride 5 MG Tablet PO (08:26)
[2021-12-15] MEDS: Fluconazole 100 MG Tablet PO (08:26)
[2021-12-15] MEDS: Aspirin 81 MG TAB.CHEW PO (08:26)
[2021-12-15] MEDS: Enoxaparin 40 MG/0.4 ML Syringe SC (08:27)
[2021-12-15] MEDS: DULoxetine Hcl 20 MG Capsule 40 MG PO (08:27)
[2021-12-15] MEDS: Azithromycin 250 MG Tablet PO (08:27)
[2021-12-15] MEDS: Acetaminophen 325 MG Tablet 650 MG PO ×2 (08:30→14:37)
--- NOTE | 2021-12-15 10:44 | CASEMGMT ---
Physician would like to meet with patient and his to discuss plan of care and make sure everyone is on the same page. SW called patient's and she said she can be at [facility] at 4p today. SW notified physician. Patient's also brought in a copy of patient's healthcare Power of [place] [employer] Adjuster and Healthcare Living Will. SW will make copies and put them in patient's chart. Jessica DUNN
--- NOTE | 2021-12-15 10:45 | PCM.PN.HOSP ---
Subjective Subjective Follow-up on acute on chronic hypoxic respiratory failure/acute COPD exacerbation: Patient seen and examined. He feels a little better. Still wheezing. Patient is receptive to Hospice. 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 Patient is receptive to a family meeting to discuss his overall plan of care. Objective Data Objective Data Vital Signs: Vital Signs Temp Pulse Resp BP Pulse Ox O2 Del Method O2 Flow Rate 97.5 F L 74 23 H 122/76 H 97 High Flow 7 12/15/21 08:30 12/15/21 10:41 12/15/21 10:41 12/15/21 08:30 12/15/21 10:15 12/15/21 10:15 12/15/21 10:15 FiO2 40 12/11/21 10:03 Oxygen Flow Rate (L/min) 7 Oxygen Delivery Method High Flow Weight: 57.6 kg Body Mass Index (BMI) 18.5 Intake & Output: Intake and Output for Last 24 Hours 12/13/21 12/14/21 12/15/21 23:59 23:59 23:59 Intake Total 1215 / 1215 720 / 720 Output Total 550 / 550 1999 / 1999 150 / 150 Balance 665 / 665 -1280 / -1280 -150 / -150 Medical Nutrition Assessment Dietitian: Malnutrition Criteria Met Start: 12/11/21 11:29 Freq: Status: Active Protocol: Document 12/14/21 11:36 AG (Rec: 12/14/21 15:31 AG [id number]) Nutrition Malnutrition Evidence of Malnutrition Exists Yes Malnutrition (severe): Chronic Evidenced By Suboptimal Energy Intake ( Severe),Physical Changes ( Severe) Clinical Problem Chronic Disease or Condition Related Malnutrition Etiology severe, chronic malnutrition r /t inadequate energy intake w/ increased energy needs d/t resp. failure Signs/Symptoms as evidenced by estimated PO intake meeting <75% of estimated energy needs >3 months; Severe muscle wasting/ fat loss evident per physical exam in orbital, temporal, clavicle, and acromion areas; BMI 19.0 Status Active Problem Recommendation Dietitian Recommendations/Changes continue regular diet as tolerated; ensure enlive 120mL 4x/day w/medpass and 240mL w/ meals for additional calories /protein if consumed. Lab / Micro Data Result Diagrams: 12/15/21 05:30 12/15/21 05:30 Labs: Laboratory Results - last 24 hr 12/15/21 05:30: WBC 12.7 H, RBC 4.31 L, Hgb 11.8 L, Hct 38.9 L, MCV 90.3, MCH 27.4, MCHC 30.3 L, RDW Std Deviation 42.1, RDW Coeff of Mac 12.7, Plt Count 253, MPV 10.3, Immature Gran % (Auto) 0.700, Neut % (Auto) 91.7 H, Lymph % (Auto) 4.0 L, [place] % (Auto) 3.5, Eos % (Auto) 0.0, Baso % (Auto) 0.1, Absolute Neuts (auto) 11.7 H, Absolute Lymphs (auto) 0.51 L, Nucleated RBC % 0, Differential Comment SCANNED 12/15/21 05:30: Sodium 138, Potassium 4.2, Chloride 98, Carbon Dioxide 38.0 H, Anion Gap 2 L, BUN 27 H, Creatinine 0.70, Estim Creat Clear Calc 53.64, Est GFR (MDRD) Af Amer 143, Est GFR (MDRD) Non-Af 118, BUN/Creatinine Ratio 38.7 H, Glucose 151 H, Calcium 8.9, Total Bilirubin 0.30, AST 18, ALT 22, Alkaline Phosphatase 65, Total Protein 5.9 L, Albumin 2.8 L, Globulin 3.1, Albumin/Globulin Ratio 0.9 Micro: Microbiology 12/11/21 13:38 Sputum, Expectorated/Coughed Gram Stain - Final 12/11/21 13:38 Sputum, Expectorated/Coughed Respiratory Culture - Final Klebsiella pneumoniae sp pneum 12/11/21 06:55 Urine, Random Legionella Antigen - Final 12/11/21 06:55 Urine, Random Streptococcus pneumoniae Antigen (M - Final 12/10/21 18:55 Mucosa - Nasopharyngeal Respiratory Panel (PCR) - Final 12/10/21 17:37 Nasal Secretion SARS-CoV-2 Antigen (Rapid) - Final Physical Exam Narrative Physical exam: General: Alert, Oriented x3, Cooperative, hard of hearing, in mild respiratory distress, on 7 L of oxygen, cachectic HEENT: Atraumatic Oral: Moist Mucosa Neck: Supple Lungs: Diminished to auscultation, wheezes+++ Cardiovascular: HS I+II, regular, no murmurs Abdomen: Bowel Sounds Present, Soft, Non Tender Extremities: No edema Skin: No rashes, No breakdown Neurological: Grossly intact Psych/Mental Status: Appropriate Assessment & Plan Assessment/Plan (1) Acute exacerbation of chronic obstructive pulmonary disease (COPD): (2) Acute and chronic respiratory failure with hypoxia: PLAN: Plan 1. Acute on chronic hypoxic respiratory failure secondary to acute COPD exacerbation Patient is on 7 L of oxygen. Chest x-ray on 12/10 was unremarkable. CTA of the chest on 12/13 shows no evidence of acute PE, shows emphysematous changes. Continue with IV Solu-Medrol and azithromycin as well as breathing treatments Palliative care/hospice consulted 2. Severe protein calorie malnutrition, detailer pharmaceuticals consulted, continue on dietary supplements 3. Anxiety/depression, continue Cymbalta and Celexa 4. History of aortic abdominal aneurysm/hyperlipidemia, continue aspirin, statin 5. BPH, continue on Proscar, flomax 6. DVT PPx- Lovenox SC Charges/Coding Visit Charges Inpatient E&M: 42641 Subs Hosp L2
--- NOTE | 2021-12-15 11:00 | CASEMGMT ---
Pt was referred to palliative when admitted in 04/2021 and palliative WOOD MILLING MACHINE OPERATOR did see pt during admission. Per Rachel at palliative, pt/ never returned calls once home and chart was closed in 06/2021. Xenia PEREIRA CM
[2021-12-15] MEDS: morphine (oral solution) 10MG/0.5ML Syringe 5 MG SL ×3 (11:03→22:21)
--- NOTE | 2021-12-15 16:00 | CASEMGMT ---
SW accompanied physician and RN to patient's room for a family meeting with patient and his . Physician went over patient's condition and that his lungs are not getting better even after treatment for 5 days. Patient and state they are aware how sick patient is and that he is likely not going to get better. Physician recommended Hospice and if they don't agree to Hospice then at least Palliative Care. All questions were answered. SW provided patient and his with SW's card per their request. SW emphasized that both need to talk with Palliative/Hospice for more thorough explanations of programs to help them decide. Patient's and patient willing to talk with Hospice/Palliative Care. SW will contact [facility] Hospice/Palliative and make sure they reach out to again. Jessica Paez HEALTH INSURANCE SALES AGENT MONA
[2021-12-15] MEDS: Tamsulosin HCl 0.4 MG Capsule PO (21:14)
[2021-12-15] MEDS: Atorvastatin Calcium 40 MG Tablet PO (21:14)
[2021-12-15] MEDS: Cefdinir 300 MG Capsule PO (21:15)
[2021-12-15] MEDS: MELATONIN 3 MG TABLET PO (22:21)
[2021-12-15] MEDS: Albuterol 2.5 MG/3 ML VIAL.NEB. INHALATION (23:56)
[2021-12-16] VITALS (15 sets, daily range): BP systolic 152–169; BP diastolic 81–92; PULSE 81–124; RESP 16–28; TEMP 36.7; O2SAT 95–98
[2021-12-16] MEDS: Albuterol 2.5 MG/3 ML VIAL.NEB. INHALATION ×6 (02:34→20:57)
[2021-12-16] MEDS: morphine (oral solution) 10MG/0.5ML Syringe 5 MG SL ×5 (03:05→20:07)
[2021-12-16 05:46] LABS: Absolute Neutrophil Count 11.1 X10^3/uL (2.0-7.7); Basophil# 0.02 X10^3/uL; Basophil% 0.2 % (0-1); Differential Indicated SCAN CRITERIA MET; Hematocrit 36.7 % (40-54); Hemoglobin 11.5 g/dL (13.0-16.5); Lymphocyte % 3.3 % (19-41); Mean Corp Hgb Conc 31.3 g/dL (32-36); Mean Corpuscular Hgb 27.7 pg (27.0-32.0); Mean Corpuscular Volume 88.4 fL (80-94); Mean Platelet Vol. 10.2 fl (6.2-12.0); Monocyte# 0.35 X10^3/uL; Monocyte% 2.9 % (0-10); NRBC Flagged by Analyzer 0 % (0-5); Neutrophil # 11.11 X10^3/uL (2.7-7.7); Neutrophil % 92.9 % (47-70); POSITIVE DIFFERENTIAL YES; Platelet Count 234 K/mm3 (150-450); RBC Distribution Width CV 12.8 % (11.6-14.6); RBC Distribution Width SD 41.9 fl (35.1-43.9); Red Blood Count 4.15 M/mm3 (4.6-6.2)
[2021-12-16] MEDS: Gabapentin 600 MG Tablet 1200 MG PO ×3 (05:58→22:15)
[2021-12-16] MEDS: Ipratropium Bromide 0.06% NASAL SPRAY 2 SPRAY NASAL ×3 (05:58→22:16)
[2021-12-16] MEDS: 0.9% Saline Lock 10 ML Syringe IV ×4 (05:59→22:25)
[2021-12-16] MEDS: levoFLOXacin 500 MG Tablet PO (05:59)
[2021-12-16 06:48] LABS: Differential Comment SCANNED
[2021-12-16] MEDS: guaiFENesin 1,200 MG Tablet 1200 MG PO ×2 (08:14→22:15)
[2021-12-16] MEDS: DULoxetine Hcl 20 MG Capsule 40 MG PO (08:14)
[2021-12-16] MEDS: Citalopram 10 MG Tablet PO (08:14)
[2021-12-16] MEDS: Aspirin 81 MG TAB.CHEW PO (08:14)
--- NOTE | 2021-12-16 08:21 | PCM.PN.INT ---
Assessment & Plan Assessment/Plan (1) Acute exacerbation of chronic obstructive pulmonary disease (COPD): PLAN: Plan RECOMMENDATIONS: 1. Wean oxygen to maintain saturations 88 to 92%. May need larger concentrator on discharge 2. Continue scheduled bronchodilators and antimicrobials. Possibly transition to p.o. steroids tomorrow 3. Increase activity as tolerated 4. Continue to discuss goals of therapy 5. Continue appropriate DVT prophylaxis. IMPRESSIONS: 1. Acute on chronic hypoxemic respiratory failure secondary to COPD with exacerbation The patient has known end-stage COPD and chronic hypoxemic respiratory failure with a 7 L/min oxygen requirement at his baseline. He is on maximum therapy from his outpatient pulmonary provider at [facility]. There is no discernible infectious etiology identified today to account for his current exacerbation. CTA of the chest did not show any pulmonary embolism as an inciting event. Nevertheless, this may be nothing more than an individual with end-stage COPD who would likely benefit from palliative/hospice care involvement. For now, it is reasonable to continue scheduled bronchodilators and antimicrobials. We will hold steroids at current dosing for another 24 hours. The patient appears to be improving on the current regimen. The patient apparently has access to PAP device at home but does not utilize it on a regular basis, as it is uncomfortable. He is already on daily azithromycin and prednisone as well. Patient appears to have poor insight into severity of illness 2. History of obstructive sleep apnea/chronic tobacco dependency in remission/chronic pain syndrome/anxiety/depression/pulmonary cachexia Complicates care, management, recovery and prognosis. Continue home medications as indicated. From my perspective, the patient will be appropriate for palliative care referral and consideration for hospice care services. This note was generated with [employer] dictation software. It may contain incorrect words, spelling, and punctuation that were not noted in checking the note before signing. Subjective Subjective Patient did okay overnight. No acute issues were reported. Patient overall feels subjectively slightly improved compared to yesterday. Patient still reports dyspnea with minimal exertion. Patient states that his pain is my normal pain. Objective Data Objective Data Vital Signs: Vital Signs Temp Pulse Resp BP Pulse Ox O2 Del Method O2 Flow Rate 36.6 C 98 20 H 158/86 H 98 Nasal Cannula 8 12/15/21 20:40 12/16/21 07:45 12/16/21 07:45 12/16/21 06:04 12/16/21 07:45 12/16/21 07:45 12/16/21 07:45 FiO2 40 12/11/21 10:03 Oxygen Flow Rate (L/min) 8 Oxygen Delivery Method Nasal Cannula Weight: 56 kg Body Mass Index (BMI) 18.5 Intake & Output: Intake and Output for Last 24 Hours 12/14/21 12/15/21 12/16/21 23:59 23:59 23:59 Intake Total 720 / 720 1100 / 1100 Output Total 1999 / 1999 150 / 850 1850 / 1850 Balance -1280 / -1280 950 / 250 -1850 / -1850 Medical Nutrition Assessment Dietitian: Malnutrition Criteria Met Start: 12/11/21 11:29 Freq: Status: Active Protocol: Document 12/14/21 11:36 AG (Rec: 12/14/21 15:31 AG [id number]) Nutrition Malnutrition Evidence of Malnutrition Exists Yes Malnutrition (severe): Chronic Evidenced By Suboptimal Energy Intake ( Severe),Physical Changes ( Severe) Clinical Problem Chronic Disease or Condition Related Malnutrition Etiology severe, chronic malnutrition r /t inadequate energy intake w/ increased energy needs d/t resp. failure Signs/Symptoms as evidenced by estimated PO intake meeting <75% of estimated energy needs >3 months; Severe muscle wasting/ fat loss evident per physical exam in orbital, temporal, clavicle, and acromion areas; BMI 19.0 Status Active Problem Recommendation Dietitian Recommendations/Changes continue regular diet as tolerated; ensure enlive 120mL 4x/day w/medpass and 240mL w/ meals for additional calories /protein if consumed. Lab / Micro Data Attestation: I reviewed the patient's lab results. Result Diagrams: 12/16/21 05:40 12/15/21 05:30 Labs: Laboratory Results - last 24 hr 12/16/21 05:40: WBC 12.0 H, RBC 4.15 L, Hgb 11.5 L, Hct 36.7 L, MCV 88.4, MCH 27.7, MCHC 31.3 L, RDW Std Deviation 41.9, RDW Coeff of Mac 12.8, Plt Count 234, MPV 10.2, Immature Gran % (Auto) 0.700, Neut % (Auto) 92.9 H, Lymph % (Auto) 3.3 L, [place] % (Auto) 2.9, Eos % (Auto) 0.0, Baso % (Auto) 0.2, Absolute Neuts (auto) 11.1 H, Absolute Lymphs (auto) 0.40 L, Nucleated RBC % 0, Differential Comment SCANNED Micro: Microbiology 12/11/21 13:38 Sputum, Expectorated/Coughed Gram Stain - Final 12/11/21 13:38 Sputum, Expectorated/Coughed Respiratory Culture - Final Klebsiella pneumoniae sp pneum 12/11/21 06:55 Urine, Random Legionella Antigen - Final 12/11/21 06:55 Urine, Random Streptococcus pneumoniae Antigen (M - Final 12/10/21 18:55 Mucosa - Nasopharyngeal Respiratory Panel (PCR) - Final 12/10/21 17:37 Nasal Secretion SARS-CoV-2 Antigen (Rapid) - Final Physical Exam Const alert Constitutional Narrative: Improved conversational dyspnea noted General Appearance: cooperative and frail Orientation / Consciousness: awake Nutritional Appearance: cachectic and thin HEENT normocephalic and head/scalp atraumatic General Ear: hearing grossly impaired diffuse Eyes PERRL, EOMs intact bilaterally and conjunctivae normal Neck supple General: trachea midline Chest Chest Narrative: Increased AP diameter Resp Resp Narrative: Conversational dyspnea Effort and Inspection: prolonged expiratory phase Auscultation: wheezes expiratory wheezes and diminished lung sounds; Negative for rales or rhonchi Cardio S1 normal heart sound, S2 normal heart sound, no murmurs, no rub and no gallops Cardio Narrative: Diminished heart sounds given airway noise Rate: tachycardic GI normal to inspection, nondistended, normoactive bowel sounds Extremity General Extremity: clubbing; Negative for edema Skin no rashes or lesions noted Neuro CN's II-XII intact bilaterally, moves all extremities and no focal motor deficits Psych cooperative and affect normal Charges/Coding Visit Charges Inpatient E&M: 42245 Subs Hosp L2
--- NOTE | 2021-12-16 08:48 | CASEMGMT ---
JOSE called Yuval at [facility] and let her know SW, physician, and RN spoke with patient and his and they are ready to talk with them. Yuval will contact patient's iwfe. JOSE received a call back from Yuval and the earliest patient's can meet with them is tomorrow (12-17) at 1p. JOSE let physician know as well as weigh and charge worker and RN. Plan: Patient and meet with [facility] Hospice/Palliative 12-17 at 1p. Jessica DUNN
--- NOTE | 2021-12-16 09:17 | PCM.PN.HOSP ---
Subjective Subjective Follow-up on acute on chronic hypoxic respiratory failure/acute COPD exacerbation: Patient seen and examined. He is still wheezy. He stated that the Roxanol helps him a little bit. He complains of back pain with radiculopathy. Objective Data Objective Data Vital Signs: Vital Signs Temp Pulse Resp BP Pulse Ox O2 Del Method O2 Flow Rate 97.8 F 98 20 H 158/86 H 98 Room Air 8 12/15/21 20:40 12/16/21 07:45 12/16/21 07:45 12/16/21 06:04 12/16/21 07:45 12/16/21 08:00 12/16/21 07:45 FiO2 40 12/11/21 10:03 Oxygen Flow Rate (L/min) 8 Oxygen Delivery Method Room Air Weight: 56 kg Body Mass Index (BMI) 18.5 Intake & Output: Intake and Output for Last 24 Hours 12/14/21 12/15/21 12/16/21 23:59 23:59 23:59 Intake Total 720 / 720 1100 / 1100 Output Total 1999 / 1999 150 / 850 1850 / 1850 Balance -1280 / -1280 950 / 250 -1850 / -1850 Medical Nutrition Assessment Dietitian: Malnutrition Criteria Met Start: 12/11/21 11:29 Freq: Status: Active Protocol: Document 12/14/21 11:36 AG (Rec: 12/14/21 15:31 [id number]) Nutrition Malnutrition Evidence of Malnutrition Exists Yes Malnutrition (severe): Chronic Evidenced By Suboptimal Energy Intake ( Severe),Physical Changes ( Severe) Clinical Problem Chronic Disease or Condition Related Malnutrition Etiology severe, chronic malnutrition r /t inadequate energy intake w/ increased energy needs d/t resp. failure Signs/Symptoms as evidenced by estimated PO intake meeting <75% of estimated energy needs >3 months; Severe muscle wasting/ fat loss evident per physical exam in orbital, temporal, clavicle, and acromion areas; BMI 19.0 Status Active Problem Recommendation Dietitian Recommendations/Changes continue regular diet as tolerated; ensure enlive 120mL 4x/day w/medpass and 240mL w/ meals for additional calories /protein if consumed. Lab / Micro Data Result Diagrams: 12/16/21 05:40 12/15/21 05:30 Labs: Laboratory Results - last 24 hr 12/16/21 05:40: WBC 12.0 H, RBC 4.15 L, Hgb 11.5 L, Hct 36.7 L, MCV 88.4, MCH 27.7, MCHC 31.3 L, RDW Std Deviation 41.9, RDW Coeff of Mac 12.8, Plt Count 234, MPV 10.2, Immature Gran % (Auto) 0.700, Neut % (Auto) 92.9 H, Lymph % (Auto) 3.3 L, [place] % (Auto) 2.9, Eos % (Auto) 0.0, Baso % (Auto) 0.2, Absolute Neuts (auto) 11.1 H, Absolute Lymphs (auto) 0.40 L, Nucleated RBC % 0, Differential Comment SCANNED Micro: Microbiology 12/11/21 13:38 Sputum, Expectorated/Coughed Gram Stain - Final 12/11/21 13:38 Sputum, Expectorated/Coughed Respiratory Culture - Final Klebsiella pneumoniae sp pneum 12/11/21 06:55 Urine, Random Legionella Antigen - Final 12/11/21 06:55 Urine, Random Streptococcus pneumoniae Antigen (M - Final 12/10/21 18:55 Mucosa - Nasopharyngeal Respiratory Panel (PCR) - Final 12/10/21 17:37 Nasal Secretion SARS-CoV-2 Antigen (Rapid) - Final Physical Exam Narrative Physical exam: General: Alert, Oriented x3, Cooperative, hard of hearing, in mild respiratory distress, on 8 L of oxygen, cachectic HEENT: Atraumatic Oral: Moist Mucosa Neck: Supple Lungs: Diminished to auscultation, wheezes+++ Cardiovascular: HS I+II, regular, no murmurs Abdomen: Bowel Sounds Present, Soft, Non Tender Extremities: No edema Skin: No rashes, No breakdown Neurological: Grossly intact Psych/Mental Status: Appropriate Assessment & Plan Assessment/Plan (1) Acute exacerbation of chronic obstructive pulmonary disease (COPD): (2) Acute and chronic respiratory failure with hypoxia: PLAN: Plan 1. Acute on chronic hypoxic respiratory failure secondary to acute COPD exacerbation Sputum cultures growing Klebsiella pneumoniae Patient is on 7 L of oxygen. Chest x-ray on 12/10 was unremarkable. CTA of the chest on 12/13 shows no evidence of acute PE, shows emphysematous changes. Continue with IV Solu-Medrol, cefdinir as well as breathing treatments Palliative care/hospice consulted 2. Severe protein calorie malnutrition, cuffing machine operator consulted, continue on dietary supplements 3. Anxiety/depression, continue Cymbalta and Celexa 4. History of aortic abdominal aneurysm/hyperlipidemia, continue aspirin, statin 5. BPH, continue on Proscar, flomax 6. DVT PPx- Lovenox SC Charges/Coding Visit Charges Inpatient E&M: 03334 Subs Hosp L2
[2021-12-16] MEDS: Fluconazole 100 MG Tablet PO (09:56)
[2021-12-16] MEDS: Cefdinir 300 MG Capsule PO ×2 (09:57→22:16)
[2021-12-16] MEDS: Enoxaparin 40 MG/0.4 ML Syringe SC (09:57)
[2021-12-16] MEDS: Finasteride 5 MG Tablet PO (09:57)
[2021-12-16] MEDS: hydrALAZINE 20 MG/ML Vial 10 MG IV (20:08)
[2021-12-16] MEDS: Atorvastatin Calcium 40 MG Tablet PO (22:15)
[2021-12-16] MEDS: Tamsulosin HCl 0.4 MG Capsule PO (22:16)
[2021-12-16] MEDS: MELATONIN 3 MG TABLET PO (22:25)
[2021-12-17] VITALS (16 sets, daily range): BP systolic 145–161; BP diastolic 89–98; PULSE 86–119; RESP 18–24; TEMP 36.1–36.5; O2SAT 92–100
[2021-12-17] MEDS: morphine (oral solution) 10MG/0.5ML Syringe 5 MG SL ×6 (00:40→22:18)
[2021-12-17] MEDS: Albuterol 2.5 MG/3 ML VIAL.NEB. INHALATION ×6 (00:45→21:22)
[2021-12-17 04:27] LABS: Absolute Lymphocyte Count 0.32 X10^3/uL (0.83-4.51); Absolute Neutrophil Count 14.1 X10^3/uL (2.0-7.7); Basophil# 0.02 X10^3/uL; Basophil% 0.1 % (0-1); Hematocrit 37.5 % (40-54); Lymphocyte # 0.32 X10^3/ul (0.83-4.51); Lymphocyte % 2.1 % (19-41); Mean Corpuscular Hgb 27.8 pg (27.0-32.0); Mean Corpuscular Volume 86.8 fL (80-94); Mean Platelet Vol. 10.4 fl (6.2-12.0); Monocyte# 0.35 X10^3/uL; Monocyte% 2.3 % (0-10); NRBC Flagged by Analyzer 0 % (0-5); Neutrophil # 14.07 X10^3/uL (2.7-7.7); Neutrophil % 94.5 % (47-70); POSITIVE DIFFERENTIAL YES; Platelet Count 245 K/mm3 (150-450); RBC Distribution Width SD 41.1 fl (35.1-43.9); Red Blood Count 4.32 M/mm3 (4.6-6.2); White Blood Count 14.9 K/mm3 (4.4-11.0)
[2021-12-17 04:30] LABS: Differential Indicated SCAN CRITERIA MET
[2021-12-17] MEDS: Ipratropium Bromide 0.06% NASAL SPRAY 2 SPRAY NASAL ×3 (04:43→21:08)
[2021-12-17] MEDS: Gabapentin 600 MG Tablet 1200 MG PO ×3 (04:45→21:07)
[2021-12-17 05:02] LABS: ALB/GLOB Ratio 0.9 RATIO (0.9-2.4); AST(SGOT) 16 U/L (15-37); Alanine Aminotransfer ALT/SGPT 25 U/L (16-61); Albumin, Serum 2.6 g/dL (3.2-5.0); Alkaline Phosphatase 58 U/L (45-117); Anion Gap 2 (5-15); BUN 30 mg/dL (7-18); BUN/Creat Ratio 46.8 RATIO (10-20); Calcium,Total 8.9 mg/dL (8.5-10.1); Chloride 97 mmol/L (98-107); Creatinine, Serum 0.64 mg/dL (0.70-1.30); EST Glomerular Filtration Rate 130 mL/min (>60); Est Glom Filt Rate - Afr Amer 158 mL/min (>60); Estimated Creatinine Clearance 52.89 ml/min; Glucose 166 mg/dL (74-106); Potassium 4.3 mmol/L (3.5-5.1); Protein, Total 5.6 g/dL (6.4-8.2); Sodium Level 137 mmol/L (136-145)
[2021-12-17 05:08] LABS: Differential Comment SCANNED
--- NOTE | 2021-12-17 07:01 | PN.CC_ITS ---
Assessment & Plan Assessment/Plan (1) Acute exacerbation of chronic obstructive pulmonary disease (COPD): PLAN: Plan RECOMMENDATIONS: 1. Wean oxygen to maintain saturations 88 to 92%. May need larger concentrator on discharge 2. Continue scheduled bronchodilators and antimicrobials. Transition to p.o. steroids 3. Increase activity as tolerated 4. Continue to discuss goals of therapy 5. Wean steroids over 12 to 14 days to patient's baseline dosing. Prednisone should not be discontinued. 6. Okay to proceed with discharge planning IMPRESSIONS: 1. Acute on chronic hypoxemic respiratory failure secondary to COPD with exacerbation The patient has known end-stage COPD and chronic hypoxemic respiratory failure with a 7 L/min oxygen requirement at his baseline. He is on maximum therapy from his outpatient pulmonary provider at [facility]. There is no discernible infectious etiology identified today to account for his current exacerbation. CTA of the chest did not show any pulmonary embolism as an inciting event. Nevertheless, this may be nothing more than an individual with end-stage COPD who would likely benefit from palliative/hospice care involvement. For now, it is reasonable to continue scheduled bronchodilators and antimicrobials. Steroids will be transition to prednisone. This should be weaned over 12 to 14 days to patient's baseline prednisone dosing. Patient should not be taken off of prednisone completely as this could exacerbate adrenal crisis or worsening respiratory status. The patient appears to be improving on the current regimen. The patient apparently has access to PAP device at home but does not utilize it on a regular basis, as it is uncomfortable. He is already on daily azithromycin and prednisone as well. Patient appears to have poor insight into severity of illness 2. History of obstructive sleep apnea/chronic tobacco dependency in remission/chronic pain syndrome/anxiety/depression/pulmonary cachexia Complicates care, management, recovery and prognosis. Continue home medications as indicated. From my perspective, the patient will be appropriate for palliative care referral and consideration for hospice care services. This note was generated with [employer] dictation software. It may contain incorrect words, spelling, and punctuation that were not noted in checking the note before signing. Subjective Subjective Patient resting comfortably on my evaluation. Nursing reported no complications overnight. Patient has been saturating well on 8 L nasal cannula. Objective Data Objective Data Vital Signs: Vital Signs Temp Pulse Resp BP Pulse Ox O2 Del Method O2 Flow Rate 36.5 C L 90 18 152/93 H 100 Nasal Cannula 8 12/17/21 04:50 12/17/21 04:50 12/17/21 04:50 12/17/21 04:50 12/17/21 04:50 12/17/21 04:50 12/17/21 04:50 FiO2 40 12/11/21 10:03 Oxygen Flow Rate (L/min) 8 Oxygen Delivery Method Nasal Cannula Weight: 56.4 kg Body Mass Index (BMI) 18.5 Intake & Output: Intake and Output for Last 24 Hours 12/15/21 12/16/21 12/17/21 23:59 23:59 23:59 Intake Total 1100 / 1100 920 / 920 240 / 240 Output Total 150 / 850 2350 / 2350 Balance 950 / 250 -1430 / -1430 240 / 240 Medical Nutrition Assessment Dietitian: Malnutrition Criteria Met Start: 12/11/21 11:29 Freq: Status: Active Protocol: Document 12/14/21 11:36 AG (Rec: 12/14/21 15:31 AG [id number]) Nutrition Malnutrition Evidence of Malnutrition Exists Yes Malnutrition (severe): Chronic Evidenced By Suboptimal Energy Intake ( Severe),Physical Changes ( Severe) Clinical Problem Chronic Disease or Condition Related Malnutrition Etiology severe, chronic malnutrition r /t inadequate energy intake w/ increased energy needs d/t resp. failure Signs/Symptoms as evidenced by estimated PO intake meeting <75% of estimated energy needs >3 months; Severe muscle wasting/ fat loss evident per physical exam in orbital, temporal, clavicle, and acromion areas; BMI 19.0 Status Active Problem Recommendation Dietitian Recommendations/Changes continue regular diet as tolerated; ensure enlive 120mL 4x/day w/medpass and 240mL w/ meals for additional calories /protein if consumed. Lab / Micro Data Attestation: I reviewed the patient's lab results. Result Diagrams: 12/17/21 04:12 12/17/21 04:12 Labs: Laboratory Results - last 24 hr 12/17/21 04:12: WBC 14.9 H, RBC 4.32 L, Hgb 12.0 L, Hct 37.5 L, MCV 86.8, MCH 27.8, MCHC 32.0, RDW Std Deviation 41.1, RDW Coeff of Mac 13.0, Plt Count 245, MPV 10.4, Immature Gran % (Auto) 1.000 H, Neut % (Auto) 94.5 H, Lymph % (Auto) 2.1 L, [place] % (Auto) 2.3, Eos % (Auto) 0.0, Baso % (Auto) 0.1, Absolute Neuts (auto) 14.1 H, Absolute Lymphs (auto) 0.32 L, Nucleated RBC % 0, Differential Comment SCANNED 12/17/21 04:12: Sodium 137, Potassium 4.3, Chloride 97 L, Carbon Dioxide 38.0 H, Anion Gap 2 L, BUN 30 H, Creatinine 0.64 L, Estim Creat Clear Calc 52.89, Est GFR (MDRD) Af Amer 158, Est GFR (MDRD) Non-Af 130, BUN/Creatinine Ratio 46.8 H, Glucose 166 H, Calcium 8.9, Total Bilirubin 0.30, AST 16, ALT 25, Alkaline Ph osphatase 58, Total Protein 5.6 L, Albumin 2.6 L, Globulin 3.0, Albumin/Globulin Ratio 0.9 Micro: Microbiology 12/11/21 13:38 Sputum, Expectorated/Coughed Gram Stain - Final 12/11/21 13:38 Sputum, Expectorated/Coughed Respiratory Culture - Final Klebsiella pneumoniae sp pneum 12/11/21 06:55 Urine, Random Legionella Antigen - Final 12/11/21 06:55 Urine, Random Streptococcus pneumoniae Antigen (M - Final 12/10/21 18:55 Mucosa - Nasopharyngeal Respiratory Panel (PCR) - Final 12/10/21 17:37 Nasal Secretion SARS-CoV-2 Antigen (Rapid) - Final Physical Exam Const alert Constitutional Narrative: Resting comfortably General Appearance: cooperative and frail Orientation / Consciousness: awake Nutritional Appearance: cachectic and thin HEENT normocephalic and head/scalp atraumatic General Ear: hearing grossly impaired diffuse Eyes PERRL, EOMs intact bilaterally and conjunctivae normal Neck supple General: trachea midline Chest Chest Narrative: Increased AP diameter Resp Resp Narrative: Conversational dyspnea Effort and Inspection: prolonged expiratory phase Auscultation: wheezes expiratory wheezes and diminished lung sounds; Negative for rales or rhonchi Cardio S1 normal heart sound, S2 normal heart sound, no murmurs, no rub and no gallops Cardio Narrative: Diminished heart sounds given airway noise Rate: tachycardic GI normal to inspection, nondistended, normoactive bowel sounds Extremity General Extremity: clubbing; Negative for edema Skin no rashes or lesions noted Neuro CN's II-XII intact bilaterally, moves all extremities and no focal motor deficits Psych cooperative and affect normal Charges/Coding Visit Charges Inpatient E&M: 82421 Subs Hosp L2
[2021-12-17] MEDS: Aspirin 81 MG TAB.CHEW PO (08:41)
[2021-12-17] MEDS: predniSONE 20 MG Tablet 40 MG PO (08:45)
[2021-12-17] MEDS: guaiFENesin 1,200 MG Tablet 1200 MG PO ×2 (09:54→21:08)
[2021-12-17] MEDS: Cefdinir 300 MG Capsule PO ×2 (09:54→21:07)
[2021-12-17] MEDS: Citalopram 10 MG Tablet PO (09:54)
[2021-12-17] MEDS: DULoxetine Hcl 20 MG Capsule 40 MG PO (09:55)
[2021-12-17] MEDS: Fluconazole 100 MG Tablet PO (09:55)
[2021-12-17] MEDS: Finasteride 5 MG Tablet PO (09:55)
[2021-12-17] MEDS: Enoxaparin 40 MG/0.4 ML Syringe SC (09:56)
--- NOTE | 2021-12-17 10:28 | CASEMGMT ---
Call back to Juan José at [facility] and she once again verifies that pt's order is for 2-3L continuous. Aby PEREIRA aware to test pt on this for discharge. Xenia PEREIRA CM
--- NOTE | 2021-12-17 14:33 | PN.HOSP_ITS ---
Subjective Subjective Follow-up on acute on chronic hypoxic respiratory failure/acute COPD exacerbation: Patient seen and examined.? No acute events overnight. Hospice is meeting with patient and the today. Objective Data Objective Data Vital Signs: Vital Signs Temp Pulse Resp BP Pulse Ox O2 Del Method O2 Flow Rate 97.6 F L 88 20 H 153/90 H 92 Nasal Cannula 6 12/17/21 09:51 12/17/21 10:39 12/17/21 10:39 12/17/21 09:51 12/17/21 13:24 12/17/21 13:24 12/17/21 13:24 FiO2 40 12/11/21 10:03 Oxygen Flow Rate (L/min) 6 Oxygen Delivery Method Nasal Cannula Weight: 56.4 kg Body Mass Index (BMI) 18.5 Intake & Output: Intake and Output for Last 24 Hours 12/15/21 12/16/21 12/17/21 23:59 23:59 23:59 Intake Total 1100 / 1100 920 / 920 240 / 240 Output Total 150 / 850 2350 / 2350 Balance 950 / 250 -1430 / -1430 240 / 240 Medical Nutrition Assessment Dietitian: Malnutrition Criteria Met Start: 12/11/21 11:29 Freq: Status: Active Protocol: Document 12/17/21 11:45 AG (Rec: 12/17/21 11:45 [id number]) Nutrition Malnutrition Evidence of Malnutrition Exists Yes Malnutrition (severe): Chronic Evidenced By Suboptimal Energy Intake ( Severe),Physical Changes ( Severe) Clinical Problem Chronic Disease or Condition Related Malnutrition Etiology severe, chronic malnutrition r /t inadequate energy intake w/ increased energy needs d/t resp. failure Signs/Symptoms as evidenced by estimated PO intake meeting <75% of estimated energy needs >3 months; Severe muscle wasting/ fat loss evident per physical exam in orbital, temporal, clavicle, and acromion areas; BMI 19.0 Status Active Problem Recommendation Dietitian Recommendations/Changes continue regular diet as tolerated; ensure enlive 120mL 4x/day w/medpass and 240mL w/ meals for additional calories /protein if consumed. Lab / Micro Data Result Diagrams: 12/17/21 04:12 12/17/21 04:12 Labs: Laboratory Results - last 24 hr 12/17/21 04:12: WBC 14.9 H, RBC 4.32 L, Hgb 12.0 L, Hct 37.5 L, MCV 86.8, MCH 27.8, MCHC 32.0, RDW Std Deviation 41.1, RDW Coeff of Mac 13.0, Plt Count 245, MPV 10.4, Immature Gran % (Auto) 1.000 H, Neut % (Auto) 94.5 H, Lymph % (Auto) 2.1 L, [place] % (Auto) 2.3, Eos % (Auto) 0.0, Baso % (Auto) 0.1, Absolute Neuts (auto) 14.1 H, Absolute Lymphs (auto) 0.32 L, Nucleated RBC % 0, Differential Comment SCANNED 12/17/21 04:12: Sodium 137, Potassium 4.3, Chloride 97 L, Carbon Dioxide 38.0 H, Anion Gap 2 L, BUN 30 H, Creatinine 0.64 L, Estim Creat Clear Calc 52.89, Est GFR (MDRD) Af Amer 158, Est GFR (MDRD) Non-Af 130, BUN/Creatinine Ratio 46.8 H, Glucose 166 H, Calcium 8.9, Total Bilirubin 0.30, AST 16, ALT 25, Alkaline Baylee sphatase 58, Total Protein 5.6 L, Albumin 2.6 L, Globulin 3.0, Albumin/Globulin Ratio 0.9 Micro: Microbiology 12/11/21 13:38 Sputum, Expectorated/Coughed Gram Stain - Final 12/11/21 13:38 Sputum, Expectorated/Coughed Respiratory Culture - Final Klebsiella pneumoniae sp pneum 12/11/21 06:55 Urine, Random Legionella Antigen - Final 12/11/21 06:55 Urine, Random Streptococcus pneumoniae Antigen (M - Final 12/10/21 18:55 Mucosa - Nasopharyngeal Respiratory Panel (PCR) - Final 12/10/21 17:37 Nasal Secretion SARS-CoV-2 Antigen (Rapid) - Final Physical Exam Narrative Physical exam: General: Alert, Oriented x3, Cooperative, hard of hearing, in mild respiratory distress, on 6 L of oxygen, cachectic HEENT: Atraumatic Oral: Moist Mucosa Neck: Supple Lungs: Diminished to auscultation, wheezes+++ Cardiovascular: HS I+II, regular, no murmurs Abdomen: Bowel Sounds Present, Soft, Non Tender Extremities: No edema Skin: No rashes, No breakdown Neurological: Grossly intact Psych/Mental Status: Appropriate Assessment & Plan Assessment/Plan (1) Acute exacerbation of chronic obstructive pulmonary disease (COPD): (2) Acute and chronic respiratory failure with hypoxia: PLAN: Plan 1. Acute on chronic hypoxic respiratory failure secondary to acute COPD exacerbation Sputum cultures growing Klebsiella pneumoniae Patient is on 6 L of oxygen. Chest x-ray on 12/10 was unremarkable. CTA of the chest on 12/13 shows no evidence of acute PE, shows emphysematous changes. Continue with prednsione, cefdinir as well as breathing treatments Palliative care/hospice consulted 2. Severe protein calorie malnutrition, payment processor consulted, continue on dietary supplements 3. Anxiety/depression, continue Cymbalta and Celexa 4. History of aortic abdominal aneurysm/hyperlipidemia, continue aspirin, statin 5. BPH, continue on Proscar, flomax 6. DVT PPx- Lovenox SC Charges/Coding Visit Charges Inpatient E&M: 00564 Subs Hosp L2
--- NOTE | 2021-12-17 14:49 | CASEMGMT ---
Ivania Montes from Hospice said patient signed Hospice papers. JOSE let her know the discharge will likely be tomorrow. Ivania Montes said patient is concerned about having enough O2 to get home. Ivania Montes will also check to see if their mobile unit would transport patient. JOSE notified physician. Plan: Home with [facility] Jessica DUNN
[2021-12-17] MEDS: Acetaminophen 325 MG Tablet 650 MG PO ×2 (15:31→21:07)
[2021-12-17] MEDS: Atorvastatin Calcium 40 MG Tablet PO (21:07)
[2021-12-17] MEDS: MELATONIN 3 MG TABLET PO (21:07)
[2021-12-17] MEDS: Tamsulosin HCl 0.4 MG Capsule PO (21:09)
--- NOTE | 2021-12-17 23:00 | CPS ---
pt refused BIPAP
[2021-12-18 00:25] VITALS: PULSE 98; RESP 18
[2021-12-18] MEDS: Albuterol 2.5 MG/3 ML VIAL.NEB. INHALATION ×2 (00:25→07:27)
[2021-12-18] MEDS: morphine (oral solution) 10MG/0.5ML Syringe 5 MG SL ×4 (02:33→15:55)
[2021-12-18 02:55] VITALS: PULSE 97
[2021-12-18] MEDS: Gabapentin 600 MG Tablet 1200 MG PO ×2 (06:42→14:16)
[2021-12-18] MEDS: Ipratropium Bromide 0.06% NASAL SPRAY 2 SPRAY NASAL ×2 (06:43→14:18)
--- NOTE | 2021-12-18 07:03 | PN.CC_ITS ---
Assessment & Plan Assessment/Plan (1) Acute exacerbation of chronic obstructive pulmonary disease (COPD): PLAN: Plan RECOMMENDATIONS: 1. Wean oxygen to maintain saturations 88 to 92%. May need larger concentrator on discharge 2. Continue scheduled bronchodilators. Complete 7 days of antibiotics. 3. Increase activity as tolerated 4. Continue to discuss goals of therapy 5. Wean steroids over 12 to 14 days to patient's baseline dosing. Prednisone should not be discontinued. 6. Okay to proceed with discharge planning IMPRESSIONS: 1. Acute on chronic hypoxemic respiratory failure secondary to COPD with exacerbation secondary to Klebsiella pneumonia The patient has known end-stage COPD and chronic hypoxemic respiratory failure with a 7 L/min oxygen requirement at his baseline. He is on maximum therapy from his outpatient pulmonary provider at [facility]. There is no discernible infectious etiology identified today to account for his current exacerbation. CTA of the chest did not show any pulmonary embolism as an inciting event. Patient reportedly open to hospice therapy. For now, it is reasonable to continue scheduled bronchodilators and antimicrobials. Tolerating transition to prednisone. This should be weaned over 12 to 14 days to patient's baseline prednisone dosing. Patient should not be taken off of prednisone completely as this could exacerbate adrenal crisis or worsening respiratory status. The patient appears to be improving on the current regimen. The patient apparently has access to PAP device at home but does not utilize it on a regular basis, as it is uncomfortable. He is already on daily azithromycin and prednisone as well. Patient can be discharged from a pulmonary perspective once supportive services are in place. 2. History of obstructive sleep apnea/chronic tobacco dependency in remission/chronic pain syndrome/anxiety/depression/pulmonary cachexia Complicates care, management, recovery and prognosis. Continue home medications as indicated. From my perspective, the patient will be appropriate for palliative care referral and consideration for hospice care services. This note was generated with [employer] dictation software. It may contain incorrect words, spelling, and punctuation that were not noted in checking the note before signing. Subjective Subjective Patient did okay overnight. Patient is reporting some improvement following initiation of chronic opiates. Patient states that he is willing to have hospice services on discharge. No change in cough. Patient tolerating p.o. well. Objective Data Objective Data Vital Signs: Vital Signs Temp Pulse Resp BP Pulse Ox O2 Del Method O2 Flow Rate 36.1 C L 97 18 145/89 H 95 High Flow 8 12/17/21 21:01 12/18/21 02:55 12/18/21 00:25 12/17/21 23:07 12/17/21 21:01 12/18/21 05:00 12/18/21 05:00 FiO2 40 12/11/21 10:03 Oxygen Flow Rate (L/min) 8 Oxygen Delivery Method High Flow Weight: 56.4 kg Body Mass Index (BMI) 18.5 Intake & Output: Intake and Output for Last 24 Hours 12/16/21 12/17/21 12/18/21 23:59 23:59 23:59 Intake Total 920 / 920 1040 / 1040 Output Total 2350 / 2350 Balance -1430 / -1430 1040 / 1040 Medical Nutrition Assessment Dietitian: Malnutrition Criteria Met Start: 12/11/21 11:29 Freq: Status: Active Protocol: Document 12/17/21 11:45 AG (Rec: 12/17/21 11:45 [id number]) Nutrition Malnutrition Evidence of Malnutrition Exists Yes Malnutrition (severe): Chronic Evidenced By Suboptimal Energy Intake ( Severe),Physical Changes ( Severe) Clinical Problem Chronic Disease or Condition Related Malnutrition Etiology severe, chronic malnutrition r /t inadequate energy intake w/ increased energy needs d/t resp. failure Signs/Symptoms as evidenced by estimated PO intake meeting <75% of estimated energy needs >3 months; Severe muscle wasting/ fat loss evident per physical exam in orbital, temporal, clavicle, and acromion areas; BMI 19.0 Status Active Problem Recommendation Dietitian Recommendations/Changes continue regular diet as tolerated; ensure enlive 120mL 4x/day w/medpass and 240mL w/ meals for additional calories /protein if consumed. Lab / Micro Data Attestation: I reviewed the patient's lab results. Lab results narrative: Patient has grown Klebsiella pneumonia that is relatively sensitive from the sputum Result Diagrams: 12/17/21 04:12 12/17/21 04:12 Micro: Microbiology 12/11/21 13:38 Sputum, Expectorated/Coughed Gram Stain - Final 12/11/21 13:38 Sputum, Expectorated/Coughed Respiratory Culture - Final Klebsiella pneumoniae sp pneum 12/11/21 06:55 Urine, Random Legionella Antigen - Final 12/11/21 06:55 Urine, Random Streptococcus pneumoniae Antigen (M - Final 12/10/21 18:55 Mucosa - Nasopharyngeal Respiratory Panel (PCR) - Final 12/10/21 17:37 Nasal Secretion SARS-CoV-2 Antigen (Rapid) - Final Physical Exam Const alert Constitutional Narrative: Mild conversational dyspnea General Appearance: cooperative and frail Orientation / Consciousness: awake Nutritional Appearance: cachectic and thin HEENT normocephalic and head/scalp atraumatic General Ear: hearing grossly impaired diffuse Eyes PERRL, EOMs intact bilaterally and conjunctivae normal Neck supple General: trachea midline Chest Chest Narrative: Increased AP diameter Resp Resp Narrative: Conversational dyspnea Effort and Inspection: prolonged expiratory phase Auscultation: wheezes expiratory wheezes and diminished lung sounds; Negative for rales or rhonchi Cardio regular rate, S1 normal heart sound, S2 normal heart sound, no murmurs, no rub and no gallops Cardio Narrative: Diminished heart sounds given airway noise GI normal to inspection, nondistended, normoactive bowel sounds Extremity General Extremity: clubbing; Negative for edema Skin no rashes or lesions noted Neuro CN's II-XII intact bilaterally, moves all extremities and no focal motor deficits Psych cooperative and affect normal Charges/Coding Visit Charges Inpatient E&M: 32378 Subs Hosp L2
[2021-12-18 07:15] VITALS: PULSE 85; RESP 17
[2021-12-18 08:00] VITALS: PULSE 91
[2021-12-18] MEDS: Aspirin 81 MG TAB.CHEW PO (08:46)
[2021-12-18] MEDS: predniSONE 20 MG Tablet 40 MG PO (08:46)
[2021-12-18] MEDS: Finasteride 5 MG Tablet PO (08:47)
[2021-12-18] MEDS: Cefdinir 300 MG Capsule PO (08:47)
[2021-12-18] MEDS: Fluconazole 100 MG Tablet PO (08:47)
[2021-12-18] MEDS: Citalopram 10 MG Tablet PO (08:47)
[2021-12-18] MEDS: guaiFENesin 1,200 MG Tablet 1200 MG PO (08:47)
[2021-12-18] MEDS: DULoxetine Hcl 20 MG Capsule 40 MG PO (08:47)
[2021-12-18] MEDS: Enoxaparin 40 MG/0.4 ML Syringe SC (08:48)
[2021-12-18 09:45] VITALS: BP 113/93; PULSE 100; RESP 20; TEMP 36.6; O2SAT 97
--- NOTE | 2021-12-18 10:17 | DCINST_ITS ---
Discharge Instructions Diet Discharge Diet: No restrictions Activity Discharge Activity: Return to Normal Activity Follow Up Care Test Results: Test results from this visit will be discussed in further detail at your follow- up appointment, if applicable. Discharge Plan Admission Admit Date/Time: 12/10/21 18:41 Primary Reason for Your Visit: Acute on chronic respiratory failure/Acute COPD exacerbation Attending Provider: Susan Maddox Primary Care Provider: Joyce Damon Consulting Providers: Keyonna Georges ; Eleazar Dowell ; Luis Puentes ; Rosalinda Bonilla NP ; Sonja Gupta ; Kristofer Zelaya ; Floresita Sams ; Joanne Vick ; Bernadine Juárez LOOPING MACHINE OPERATOR ; Coleen Rascon Instructions Additional Instructions / Restrictions: You are being discharged with Hospice at home as well as oxygen. Discharge Orders/Prescriptions Prescriptions: New albuterol sulfate 2.5 mg /3 mL (0.083 %) Solution For Nebulization 2.5 mg inhalation Q2H PRN PRN (Reason: Dyspnea, wheezing) 30 Days Qty: 120 0RF cefdinir 300 mg Capsule 300 mg PO Q12 4 Days Qty: 8 0RF Mucus Relief ER 1,200 mg Tablet Extended Release 12hr 1,200 mg PO BID 7 Days Qty: 14 0RF prednisone 10 mg tablet See Taper PO DAILY Qty: 30 0RF Taper: Prednisone Taper 40 mg WITH BREAKFAST for 3 Days and 0 Hour 30 mg WITH BREAKFAST for 3 Days and 0 Hour 20 mg WITH BREAKFAST for 3 Days and 0 Hour 10 mg WITH BREAKFAST for 3 Days and 0 Hour morphine 10 mg/5 mL solution 10 mg PO Q4H PRN (Reason: dyspnea) 3 Days Qty: 500 0RF Continued atorvastatin 20 MG tablet 40 mg PO QHS Label Comments: cholesterol lowering oxycodone-acetaminophen 1 TABLET tablet 1 tab PO 5X/DAY PRN (Reason: Pain) Label Comments: pain zolpidem 5 MG tablet 5 mg PO QHS PRN PRN (Reason: Sleep) Label Comments: TAKE 1 TABLET BY MOUTH DAILY AT BEDTIME sleep Combivent Respimat 20-100 mcg/actuation mist 1 puff INHALATION 4X/DAY gabapentin 600 mg tablet 1,200 mg PO TID citalopram 10 mg tablet 10 mg PO DAILY budesonide 0.5 mg/2 mL suspension for nebulization 0.5 mg inhalation Q12H ipratropium bromide 42 mcg (0.06 %) [place],Non-Aerosol 2 spray INTRANASAL TID duloxetine 40 mg capsule,delayed release(DR/EC) 40 mg PO DAILY multivitamin Tablet 1 tab PO DAILY albuterol sulfate [ProAir HFA] 1 PUFF inhaler 2 puff inhalation Q4H PRN PRN (Reason: Sob &/Or Wheezing) Qty: 0 0RF Label Comments: copd fluconazole 100 mg tablet 100 mg PO DAILY Label Comments: TAKE 1 TABLET BY MOUTH ONCE DAILY azithromycin 250 mg tablet 250 mg PO DAILY tamsulosin 0.4 mg capsule 0.4 mg PO QHS Rx Instructions: Hold hold for dizziness, hypotension( hold for SBP less than 110 mmHg) finasteride 5 mg tablet 5 mg PO DAILY Discontinued prednisone 20 MG tablet 10 mg PO DAILY Referrals / Follow Up: Joyce Damon MD [Primary Care Provider] - Disposition Disposition (needs filled in before D/C Order can be placed): Hospice in Home
--- NOTE | 2021-12-18 10:20 | CASEMGMT ---
JOSE received a call from patient's , Mariama. Mariama asked JOSE what they should do with patient's Part D plan since Hospice will be paying for medications. She also told JOSE that if patient absolutely has to be discharged today she will not be able to pick him up until after 4p. Mariama said it would be better if patient was discharged tomorrow. JOSE told Mariama JOSE will let the physician know this information. JOSE spoke with Physician and patient is ready for discharge today. JOSE called patient's and let her know this information. Patient does have portables, but they only go up to 7L. JOSE called Ivania Montes at Hospice and let her know patient will need another O2 concentrator and portables delivered to his home prior to d/c. According to Gerardo patient's concentrator only goes up to 5L. JOSE also let Ivania Montes know that patient will be discharged today and his won't be able to pick him up until 4 pm. JOSE also asked Ivania Montes about Mariama's question regarding patient's prescription plan. Ivania Montes said they will need to keep his plan as only his Hospice medications will be covered by Medicare and those that are unrelated to his Hospice diagnosis will go through his Part D. Plan: d/c home on [facility]. Jessica DUNN
--- NOTE | 2021-12-18 10:29 | PHA.DC.MR ---
Pharmacy Service has performed discharge medication reconciliation for this patient. The patient's discharge medication list was reviewed for discrepancies and discrepancies were resolved. Home Medications atorvastatin 20 mg tablet 40 mg PO QHS Check with primary doctor 05/03/14 oxycodone-acetaminophen 5 mg-325 mg tablet 1 tab PO 5X/DAY PRN Pain 05/03/14 zolpidem 5 mg tablet 5 mg PO QHS PRN PRN Sleep 05/03/14 budesonide 0.5 mg/2 mL suspension for nebulization 0.5 mg inhalation Q12H 04/26/21 citalopram 10 mg tablet 10 mg PO DAILY MENTAL HEALTH 04/26/21 duloxetine 40 mg capsule,delayed release 40 mg PO DAILY MENTAL HEALTH 04/26/21 gabapentin 600 mg tablet 1,200 mg PO TID NERVE PAIN 04/26/21 ipratropium 20 mcg-albuterol 100 mcg/actuation mist for inhalation (Combivent Respimat) 1 puff inhalation 4X/DAY BREATHING 04/26/21 ipratropium bromide 42 mcg (0.06 %) nasal spray 2 spray intranasal TID BREATHING 04/26/21 multivitamin 1 tab PO DAILY SUPPLEMENT 04/27/21 albuterol sulfate 90 mcg/actuation aerosol inhaler (ProAir HFA) 2 puff inhalation Q4H PRN PRN Sob &/Or Wheezing #0 grams 05/02/21 azithromycin 250 mg tablet 250 mg PO DAILY ANTIBIOTIC 12/10/21 finasteride 5 mg tablet 5 mg PO DAILY PROSTATE 12/10/21 fluconazole 100 mg tablet 100 mg PO DAILY 12/10/21 tamsulosin 0.4 mg capsule 0.4 mg PO QHS PROSTATE 12/10/21 albuterol sulfate 2.5 mg/3 mL (0.083 %) solution for nebulization 2.5 mg (3 mL) inhalation Q2H PRN PRN Dyspnea, wheezing 30 days #120 multiple units 12/18/21 cefdinir 300 mg capsule 300 mg PO Q12 4 days #8 caps 12/18/21 guaifenesin 1,200 mg tablet, extended release 12 hr (Mucus Relief ER) 1,200 mg PO BID 7 days #14 tabs 12/18/21 prednisone 10 mg tablet See Taper PO DAILY #30 tabs 12/18/21
--- NOTE | 2021-12-18 10:35 | PCM.DC.SUM ---
Providers Date of Admission: 12/10/21 Date of Discharge: 12/18/21 Primary Care Physician: Dr. Joyce Damon MD Consultations 12/12/21 08:19 Consult: Kaiako Kura [place] / Pulmonary Medicine Routine Consulting Provider: Pulmonary Medicine lona Burwell Reason for Consult: severe COPD exacerbation EMERGENT Consult: No Notified: Yes Date Notified: 12/12/21 Time Notified: 08:20 Method of Notification: MD to MD 12/13/21 10:07 Consult: Hospice / Palliative Care Routine Consulting Provider: [facility] Reason for Consult: end stage copd EMERGENT Consult: No Notified: Yes Date Notified: 12/13/21 Time Notified: 10:30 Method of Notification: telephone Reason For Visit: ACUTE RESPIRATORY FAILURE ON CHRONIC, COPD EXACERB Diagnosis Discharge Diagnosis (1) Acute exacerbation of chronic obstructive pulmonary disease (COPD): Status: Chronic Code(s): J44.1 - Chronic obstructive pulmonary disease with (acute) exacerbation Plan 1. Acute on chronic hypoxic respiratory failure Acute COPD exacerbation 2. Severe protein calorie malnutrition 3. Anxiety/depression 4. History of aortic abdominal aneurysm 5. Hyperlipidemia 5. BPH Medications at Discharge Home Medications atorvastatin 20 mg tablet 40 mg PO QHS Check with primary doctor 05/03/14 oxycodone-acetaminophen 5 mg-325 mg tablet 1 tab PO 5X/DAY PRN Pain 05/03/14 zolpidem 5 mg tablet 5 mg PO QHS PRN PRN Sleep 05/03/14 budesonide 0.5 mg/2 mL suspension for nebulization 0.5 mg inhalation Q12H 04/26/21 citalopram 10 mg tablet 10 mg PO DAILY MENTAL HEALTH 04/26/21 duloxetine 40 mg capsule,delayed release 40 mg PO DAILY MENTAL HEALTH 04/26/21 gabapentin 600 mg tablet 1,200 mg PO TID NERVE PAIN 04/26/21 ipratropium 20 mcg-albuterol 100 mcg/actuation mist for inhalation (Combivent Respimat) 1 puff inhalation 4X/DAY BREATHING 04/26/21 ipratropium bromide 42 mcg (0.06 %) nasal spray 2 spray intranasal TID BREATHING 04/26/21 multivitamin 1 tab PO DAILY SUPPLEMENT 04/27/21 albuterol sulfate 90 mcg/actuation aerosol inhaler (ProAir HFA) 2 puff inhalation Q4H PRN PRN Sob &/Or Wheezing #0 grams 05/02/21 azithromycin 250 mg tablet 250 mg PO DAILY ANTIBIOTIC 12/10/21 finasteride 5 mg tablet 5 mg PO DAILY PROSTATE 12/10/21 fluconazole 100 mg tablet 100 mg PO DAILY 12/10/21 tamsulosin 0.4 mg capsule 0.4 mg PO QHS PROSTATE 12/10/21 albuterol sulfate 2.5 mg/3 mL (0.083 %) solution for nebulization 2.5 mg (3 mL) inhalation Q2H PRN PRN Dyspnea, wheezing 30 days #120 multiple units 12/18/21 cefdinir 300 mg capsule 300 mg PO Q12 4 days #8 caps 12/18/21 guaifenesin 1,200 mg tablet, extended release 12 hr (Mucus Relief ER) 1,200 mg PO BID 7 days #14 tabs 12/18/21 morphine 10 mg/5 mL oral solution 10 mg (5 mL) PO Q4H PRN dyspnea 3 days #500 mL 12/18/21 prednisone 10 mg tablet See Taper PO DAILY #30 tabs 12/18/21 Hospital Course Operations None Procedures None Summary of Care Provided Minutes Spent on Discharge: 45 Hospital Course: 71-year-old male with past medical history of 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 Patient was reportedly desaturating at home in the low 80s as well as wheezing. He has had cough, congestion, productive sputum, malaise, worsening dyspnea. Patient was found to have acute COPD exacerbation with significant wheezes. He was managed on IV Solu-Medrol, breathing treatments. Pulmonology was consulted but patient remained unchanged in terms of his oxygen requirement of wheezes. Sputum cultures grew Klebsiella. Patient initially received Levaquin. Cefdinir was added for total of 5-day. His significant work of breathing seemed to improve with Roxanol. Palliative/hospice was recommended to family. Family met finally with hospice on 12/17/21. Patient was discharged home with hospice. Physical Exam Narrative Physical exam: General: Alert, Oriented x3, Cooperative, hard of hearing, in mild respiratory distress, on 6 L of oxygen, cachectic HEENT: Atraumatic Oral: Moist Mucosa Neck: Supple Lungs: Diminished to auscultation, wheezes+++ Cardiovascular: HS I+II, regular, no murmurs Abdomen: Bowel Sounds Present, Soft, Non Tender Extremities: No edema Skin: No rashes, No breakdown Neurological: Grossly intact Psych/Mental Status: Appropriate Medical Records Data Medical Nutrition Assessment Dietitian: Malnutrition Criteria Met Start: 12/11/21 11:29 Freq: Status: Active Protocol: Document 12/17/21 11:45 AG (Rec: 12/17/21 11:45 [id number]) Nutrition Malnutrition Evidence of Malnutrition Exists Yes Malnutrition (severe): Chronic Evidenced By Suboptimal Energy Intake ( Severe),Physical Changes ( Severe) Clinical Problem Chronic Disease or Condition Related Malnutrition Etiology severe, chronic malnutrition r /t inadequate energy intake w/ increased energy needs d/t resp. failure Signs/Symptoms as evidenced by estimated PO intake meeting <75% of estimated energy needs >3 months; Severe muscle wasting/ fat loss evident per physical exam in orbital, temporal, clavicle, and acromion areas; BMI 19.0 Status Active Problem Recommendation Dietitian Recommendations/Changes continue regular diet as tolerated; ensure enlive 120mL 4x/day w/medpass and 240mL w/ meals for additional calories /protein if consumed. Weight / BMI Weight Weight: 56.4 kg Body Mass Index (BMI) 18.5 ABG / Lab / Microbiology Data Result Diagrams: 12/17/21 04:12 12/17/21 04:12 Microbiology: Microbiology 12/11/21 13:38 Sputum, Expectorated/Coughed Gram Stain - Final 12/11/21 13:38 Sputum, Expectorated/Coughed Respiratory Culture - Final Klebsiella pneumoniae sp pneum 12/11/21 06:55 Urine, Random Legionella Antigen - Final 12/11/21 06:55 Urine, Random Streptococcus pneumoniae Antigen (M - Final 12/10/21 18:55 Mucosa - Nasopharyngeal Respiratory Panel (PCR) - Final 12/10/21 17:37 Nasal Secretion SARS-CoV-2 Antigen (Rapid) - Final D/C Instructions Discharge Diet: No restrictions Meaningful Use Info Meaningful Use Diagnoses (Choose all that apply): None applicable Discharge Plan Admission Admit Date/Time: 12/10/21 18:41 Primary Reason for Your Visit: Acute on chronic respiratory failure/Acute COPD exacerbation Attending Provider: Susan Maddox Primary Care Provider: Joyce Damon Consulting Providers: Keyonna Georges ; Eleazar Dowell ; Luis Puentes ; Rosalinda Bonilla WEB SERVICES DEVELOPER ; Sonja Gupta ; Kristofer Zelaya ; Floresita Sams ; Joanne Vick ; Bernadine Juárez WEB SERVICES DEVELOPER ; Coleen Rascon Instructions Additional Instructions / Restrictions: You are being discharged with Hospice at home as well as oxygen. Discharge Orders/Prescriptions Prescriptions: New albuterol sulfate 2.5 mg /3 mL (0.083 %) Solution For Nebulization 2.5 mg inhalation Q2H PRN PRN (Reason: Dyspnea, wheezing) 30 Days Qty: 120 0RF cefdinir 300 mg Capsule 300 mg PO Q12 4 Days Qty: 8 0RF Mucus Relief ER 1,200 mg Tablet Extended Release 12hr 1,200 mg PO BID 7 Days Qty: 14 0RF prednisone 10 mg tablet See Taper PO DAILY Qty: 30 0RF Taper: Prednisone Taper 40 mg WITH BREAKFAST for 3 Days and 0 Hour 30 mg WITH BREAKFAST for 3 Days and 0 Hour 20 mg WITH BREAKFAST for 3 Days and 0 Hour 10 mg WITH BREAKFAST for 3 Days and 0 Hour morphine 10 mg/5 mL solution 10 mg PO Q4H PRN (Reason: dyspnea) 3 Days Qty: 500 0RF Continued atorvastatin 20 MG tablet 40 mg PO QHS Label Comments: cholesterol lowering oxycodone-acetaminophen 1 TABLET tablet 1 tab PO 5X/DAY PRN (Reason: Pain) Label Comments: pain zolpidem 5 MG tablet 5 mg PO QHS PRN PRN (Reason: Sleep) Label Comments: TAKE 1 TABLET BY MOUTH DAILY AT BEDTIME sleep Combivent Respimat 20-100 mcg/actuation mist 1 puff INHALATION 4X/DAY gabapentin 600 mg tablet 1,200 mg PO TID citalopram 10 mg tablet 10 mg PO DAILY budesonide 0.5 mg/2 mL suspension for nebulization 0.5 mg inhalation Q12H ipratropium bromide 42 mcg (0.06 %) [place],Non-Aerosol 2 spray INTRANASAL TID duloxetine 40 mg capsule,delayed release(DR/EC) 40 mg PO DAILY multivitamin Tablet 1 tab PO DAILY albuterol sulfate [ProAir HFA] 1 PUFF inhaler 2 puff inhalation Q4H PRN PRN (Reason: Sob &/Or Wheezing) Qty: 0 0RF Label Comments: copd fluconazole 100 mg tablet 100 mg PO DAILY Label Comments: TAKE 1 TABLET BY MOUTH ONCE DAILY azithromycin 250 mg tablet 250 mg PO DAILY tamsulosin 0.4 mg capsule 0.4 mg PO QHS Rx Instructions: Hold hold for dizziness, hypotension( hold for SBP less than 110 mmHg) finasteride 5 mg tablet 5 mg PO DAILY Discontinued prednisone 20 MG tablet 10 mg PO DAILY Referrals / Follow Up: Joyce Damon MD [Primary Care Provider] - Disposition Disposition (needs filled in before D/C Order can be placed): Hospice in Home Charges/Coding Visit Charges Inpatient E&M: 68678 Disch Hosp
--- NOTE | 2021-12-18 11:12 | CASEMGMT ---
JOSE faxed patient's discharge instructions to [facility]. Jessica Paez COLD ROLLING COORDINATOR MONA
--- NOTE | 2021-12-18 11:37 | CASEMGMT ---
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 Ivania Montes spoke with Yuval and patient should not picking crew supervisor the medications as Hospice will be at the home when patient gets home and will order whatever he needs. JOSE will notify the pharmacy. Jessica DUNN
--- NOTE | 2021-12-18 11:50 | CASEMGMT ---
JOSE called [facility] and told them they do not need to fill the medications that physician sent down per Hospice as they will provide the medicine. JOSE will notify [facility]. Jessica DUNN
[2021-12-18] MEDS: oxyCODONE 5 MG Tablet PO (14:10)
[2021-12-18] MEDS: Acetaminophen 325 MG Tablet 650 MG PO (14:10)
--- NOTE | 2021-12-18 15:58 | CASEMGMT ---
RN Shaniqua spoke with patient's via phone. 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 SW called Yuval at Hospice and let her know this information. They will have a nurse head out to their home. Jessica DUNN
== END 2021-12-18 16:53 | disposition hospice, home (50) | DRG 190 ==
LOC: ED 18:26 → PCU 18:51
PROVIDERS: Internal Medicine; Physician Assistant; Student in an Organized Health Care Education/Training Program; Admitting Provider Family Medicine; Emergency Provider Emergency Medicine; PCP Internal Medicine; Visit Provider Internal Medicine
DX: J44.1 Chronic obstructive pulmonary disease with (acute) exacerbation (principal); J96.21 Acute and chronic respiratory failure with hypoxia; J15.0 Pneumonia due to Klebsiella pneumoniae; E43 Unspecified severe protein-calorie malnutrition; Z68.1 Body mass index [BMI] 19.9 or less, adult; Z99.81 Dependence on supplemental oxygen; J44.0 Chronic obstructive pulmonary disease with (acute) lower respiratory infection; I71.4 Abdominal aortic aneurysm, without rupture; F41.9 Anxiety disorder, unspecified; G47.33 Obstructive sleep apnea (adult) (pediatric); E78.5 Hyperlipidemia, unspecified; I10 Essential (primary) hypertension; M54.16 Radiculopathy, lumbar region; Z87.891 Personal history of nicotine dependence; Z85.828 Personal history of other malignant neoplasm of skin; F32.A Depression, unspecified; Z87.19 Personal history of other diseases of the digestive system; Z79.899 Other long term (current) drug therapy; Z79.82 Long term (current) use of aspirin; G89.4 Chronic pain syndrome; Z98.1 Arthrodesis status; Z79.52 Long term (current) use of systemic steroids; N40.0 Benign prostatic hyperplasia without lower urinary tract symptoms; Z51.5 Encounter for palliative care
CPT/HCPCS: 36415; 36600; 71045; 71275; 80048; 80053; 82803; 83735; 84100; 84145; 84484; 85025; 87070; 87077; 87186; 87205; 87449; 87633; 87635; 87641; 87811; 93005; 94002; 94003; 94640; 94762; 97162; 97165; 97530; 97535; 97802; 97803; 99251; 99285; J7030; Q9967; A4216; G0463; J2405; U0003; U0005